=== PATIENT | male | born 1985 | race Caucasian/White ===

== ENCOUNTER 2016-04-13 15:21 | Emergency (ER) ==
--- NOTE | 2016-04-13 16:19 | PROVIDER DOCUMENTATION ---
HPI-EENT General - General Chief Complaint: Toothache Stated Complaint: ABSCESS TOOTH Time Seen by Provider: 04/13/16 15:27 Source: patient Allergies/Adverse Reactions: Patient Allergies Allergy/AdvReac Type Severity Reaction Status Date / Time doxycycline Allergy Severe SWELLING Verified 02/12/15 16:03 cat gut sutures Allergy Severe infection Uncoded 02/12/15 16:03 @ site - History of Present Illness-EENT General Nature of Presenting Problem: 30 yo male presents to the emergency room with a chief complaint of a toothache X 2 to 3 weeks. Gives Hx of dental problems. Reports taking Tylenol OTC w/o relief. Reports can not take motrin because of stomach ulcers. Reports an abscessed tooth X 2 days and reports is following up with [facility]. Denies fever, chills, swelling to face or any other c/o at present. EENT Location: reports: dental Quality of Pain: reports: aching Severity: reports: mild Onset/Duration: reports: 2 days ago Timing: reports: still present Prearrival Treatment: Initiated over the counter meds Associated Symptoms: reports: tooth pain. denies: facial pain/swelling Review of Systems - Adult - REVIEW OF SYSTEMS - ADULT Constitutional: denies: chills, fever Ears, Nose, Mouth & Throat: reports: mouth/dental pain Past History - Adult - PAST MEDICAL HISTORY-ADULT Review of Records: reports: Nursing Assessment Review, Medications Reviewed Major Childhood Illnesses: reports: other (cholecystectomy ) Gastrointestinal: reports: cholelithiasis (cholecystectomy age 10) Other Conditions: reports: MRSA - PRIOR SURGERIES/PROCEDURES Surgical/Procedure History: reports: cholecystectomy (age 10), other ( gynecomastia age 21, I&D surgical in May Dr. Cameron) - IMMUNIZATION STATUS Childhood Immunizations: UTD, See Nurse Assessment Flu Vaccine: See Nurse Assessment - SOCIAL HISTORY Smoking: cigarettes, less than 1 pack/day Provider spent 3-5 mins advising pt. on dangers of tobacco.: Discussed manners to quit use, and f/u contacts for add'l counseling. Physical Exam- EENT - Physical Exam EENT Initial Vital Signs Reviewed: Yes General Appearance: appears well, alert, no apparent distress Eye Exam: bilateral eye: normal inspection, PERRL Ear Exam: bilateral ear: auricle normal, canal normal Throat Exam: pharynx normal, dental tenderness, other (severe dental caries noted to teeth, fractured right lower 5th tooth) Respiratory: lungs clear, normal breath sounds Cardiovascular: normal peripheral pulses, regular rate, rhythm Extremity: normal range of motion, normal capillary refill Integumentary: normal color, normal turgor, warm/dry Progress - PLAN OF CARE/RESULTS Progress/Plan/Lab Results: Discussed care, diagnosis and need for follow-up, patient verbalized understanding Last Vital Signs Temp 97.2 F L 04/13/16 15:25 Pulse 103 H 04/13/16 15:25 Resp 18 04/13/16 15:25 BP 145/90 04/13/16 15:25 Pulse Ox 97 04/13/16 15:25 Allergies doxycycline Allergy (Severe, Verified 02/12/15 16:03) SWELLING cat gut sutures Allergy (Severe, Uncoded 02/12/15 16:03) infection @ site Vital Signs - 24 hr 04/13/16 15:25 Temperature 97.2 F L Pulse Rate 103 H Respiratory 18 Rate Blood Pressure 145/90 O2 Sat by Pulse 97 Oximetry Departure - Departure Time of Disposition Order: 16:11 DIAGNOSIS: Toothache, Dental caries Disposition: HOME 01 Certified Medical Emergency: Urgent Condition: Good Additional Instructions: ED Follow Up Instructions: You have been treated by a care provider in the Emergency Department. These instructions are being provided to you so you can have an understanding of how to care for yourself upon discharge. Upon discharge from the Emergency Department, you are responsible for making arrangements for follow-up care by a physician of your choice. Take all prescribed medications as directed. Return to the Emergency Department immediately for any new or worsening symptoms. You may call the Physician Referral phone number at [phone] to obtain a list of Physicians who are taking new patients. Prescriptions: Amoxicillin 875 mg PO BID #20 tablet Referrals: None,PCP [Primary Care Provider] - Attestation - Physician/ Mid-level Attestation Patient care was provided by Mid-level provider (TUBE MAN/PA):: Yes Mid-level provider:: Karime Cook Mid-level documentation review:: The Mid-level provider documentation, treatment plan and medical decision making was reviewed by the physician who agrees with all treatment and medical decision making by the P.
[2016-04-13 16:42] VITALS: BP 134/84
== END 2016-04-13 17:18 | disposition home or self-care (01) ==
LOC: P.ED 15:21
DX: K02.9 Dental caries, unspecified (principal); K08.89 Other specified disorders of teeth and supporting structures; S02.5XXA Fracture of tooth (traumatic), initial encounter for closed fracture; F17.210 Nicotine dependence, cigarettes, uncomplicated; Z71.6 Tobacco abuse counseling; Z86.14 Personal history of Methicillin resistant Staphylococcus aureus infection
CPT/HCPCS: 99282

== ENCOUNTER 2018-10-24 12:17 | Inpatient (IN) ==
--- NOTE | 2018-10-24 12:48 | PROVIDER DOCUMENTATION ---
HPI-Abdominal Pain/GI Problem - General Chief Complaint: Abdominal Pain Stated Complaint: ABD PAIN Time Seen by Provider: 10/24/18 12:30 Source: patient Allergies/Adverse Reactions: Patient Allergies Allergy/AdvReac Type Severity Reaction Status Date / Time doxycycline Allergy Severe ANAPHYLAXIS Verified 10/18/18 18:38 cat gut sutures Allergy Severe infection Uncoded 10/31/17 16:28 @ site Home Medications: Home Medication List Medication Instructions Recorded Confirmed Last Taken Type Clindamycin [Cleocin] 300 mg PO Q6HR #40 cap 07/11/18 Unknown Rx Mupirocin Ointment [Bactroban 22 gm .SEE ORDER TID #1 tube 07/11/18 Unknown Rx Ointment] Sulfamethoxazole/Trimethoprim 1 ea PO BID #14 tab 07/11/18 Unknown Rx [Bactrim Ds Tablet] Hydrocodone/Acetaminophen [Watrous 1 ea PO Q6H PRN PRN #16 tab 10/18/18 Unknown Rx 5-325 Tablet] Ondansetron [Zofran] 4 mg PO Q6H PRN PRN #20 tab 10/18/18 Unknown Rx - History of Present Illness-ABD Nature of Presenting Problems: 33yom present to ER with c/o abd pain x 3.5 weeks. Pt states he has not f/u with anyone. States he did not have number for the referral. Pt also c/o n/v reports average 3x a day. Denies fever. Reports some constipation, states last BM was last night but was 1 week prior to that. Abdominal Pain Onset Location: reports: generalized abdomen Pain Radiation: reports: no radiation Quality of Pain: reports: aching, throbbing Onset/Duration: reports: other (3.5 weeks) Associated Symptoms: reports: constipation, nausea, vomiting. denies: chest pain, diarrhea, fever/chills, genitourinary problems, shortness of breath, weakness Review of Systems - Adult - REVIEW OF SYSTEMS - ADULT Constitutional: reports: no symptoms reported. denies: chills, fever Eyes: reports: no symptoms reported Ears, Nose, Mouth & Throat: reports: no symptoms reported Cardiovascular: reports: no symptoms reported. denies: chest pain Respiratory: reports: no symptoms reported Gastrointestinal: reports: see HPI, abdominal pain, constipation, nausea, vomiting. denies: hematemesis, diarrhea Genitourinary: reports: no symptoms reported. denies: dysuria, frequency, flank pain, hematuria, urgency Musculoskeletal: reports: no symptoms reported Integumentary: reports: no symptoms reported Neurological: reports: no symptoms reported. denies: dizziness/vertigo, headache/migraines Psychiatric: reports: no symptoms reported Endocrine: reports: no symptoms reported Hematologic/Lymphatic: reports: no symptoms reported Allergic/Immunologic: reports: no symptoms reported All Other Systems: Reviewed and Negative Past History - Adult - PAST MEDICAL HISTORY-ADULT Review of Records: reports: Old Records Reviewed, Nursing Assessment Review, Med ications Reviewed, Social history reviewed & non-contributory. Major Childhood Illnesses: reports: denies history, other (cholecystectomy ) Cardiovascular: reports: denies history Respiratory: reports: denies history Gastrointestinal: reports: cholelithiasis (cholecystectomy age 10), GERD Obstetrical/Gynecological: reports: denies history Genitourinary: reports: denies history Musculoskeletal: reports: denies history Neurological: reports: denies history Psychiatric: reports: denies history Endocrine/Immune: reports: denies history Other Conditions: reports: MRSA - PRIOR SURGERIES/PROCEDURES Surgical/Procedure History: reports: cholecystectomy (age 10), other (gynecomastia age 21, I&D surgical in May Dr. Cameron) - IMMUNIZATION STATUS Childhood Immunizations: UTD, See Nurse Assessment Flu Vaccine: See Nurse Assessment - FAMILY HISTORY Family History: reviewed, not pertinent - SOCIAL HISTORY Substance Use: denies (alcohol) Physical Exam-General - PHYSICAL EXAM-ADULT Initial Vital Signs Reviewed: Yes - CONSTITUTIONAL General Appearance: alert, no apparent distress, mild distress, obese - EYES Eyes: pink conjunctivae - HEAD, EARS, NOSE, MOUTH & THROAT HENMT: moist mucous membranes, normal ENT inspection - NECK Neck: full range of motion, supple, normal inspection - RESPIRATORY Respiratory: lungs clear, normal breath sounds, no respiratory distress, no accessory muscle use - CARDIOVASCULAR Cardiovascular: tachycardia - GASTROINTESTINAL (ABDOMEN) Abdominal Exam: normal bowel sounds, no organomegaly, no pulsatile mass, tenderness (right sided and suprapubic regions). negative: distended, guarding, rigid, rebound - LYMPHATIC Lymphatic: no adenopathy - MUSCULOSKELETAL Back Exam: normal inspection, no CVA tenderness, no vertebral tenderness Extremity: normal range of motion, normal gait, normal inspection - SKIN Integumentary: normal color, warm/dry. negative: rash - NEUROLOGIC Neurologic: grossly normal, no motor/sensory deficits - PSYCHIATRIC Psych/Mental Status: normal mood/affect, normal thought content, normal thought process, oriented x 3 Progress - PLAN OF CARE/RESULTS Progress/Plan/Lab Results: Vital Signs - 8 hr 10/24/18 12:22 Temperature 97.8 F Pulse Rate 122 H Respiratory Rate 17 Blood Pressure 140/91 O2 Sat by Pulse Oximetry 97 Orders Category Date Time Status CBC WITH DIFF [HEME] Stat Lab 10/24/18 12:39 Uncollected COMPREHENSIVE METABOLIC PANEL [CHEM] Stat Lab 10/24/18 12:39 Uncollected LIPASE [CHEM] Stat Lab 10/24/18 12:39 Uncollected UA [URINALYSIS W/POSS RFLX CULT] [URINALYSIS] Stat Lab 10/24/18 12:39 Uncollected Result Diagrams: 10/24/18 12:40 10/24/18 12:40 - REASSESSMENT Reassessment #1 Time Reassessed: 13:38 (discussed pt with Dr Olivia, states to treat pt with pain m edication and have f/u outpatient) Reassessment #2 Time Reassessed: 13:44 (reviewed results with pt. Pt states he is still having pain. Pt states he does not have insurance and does not have anyone to follow up with due to this. Requests admission. Will call hospitalist to see if pt meets criteria or are willing to admit.) Reassessment #3 Time Reassessed: 14:13 (informed pt that hospitalist will come see him) - CONSULTS/PCP/HOSPITALIST Notification #1 *Consult/PCP/Hospitalist*: Ana Maria hospitalist RESEARCH DEVELOPMENT DIRECTOR Time Discussed: 14:14 Consult Disposition: Admit Departure - Departure Date of Disposition Decision: 10/24/18 Time of Disposition Decision: 14:14 DIAGNOSIS: Omental mass Abdominal pain Qualifiers: Abdominal location: unspecified location Qualified Code(s): R10.9 - Unspecified abdominal pain Nausea & vomiting Qualifiers: Vomiting type: unspecified Vomiting Intractability: unspecified Qualified Code(s): R11.2 - Nausea with vomiting, unspecified Disposition: ADMITTED INPATIENT 09 Certified Medical Emergency: Emergent Condition: Good Referrals and Follow-Ups: None,PCP [Primary Care Provider] - - Critical Care Note This patient required my direct & personal management of CC.: No Attestation - Physician/ TRAN Attestation Patient care was provided by Advanced Practice Provider:: Yes Advanced Practice Provider:: Darshan Rubalcava Advanced Practice Provider documentation review:: The Mid-level provider documentation, treatment plan and medical decision making was reviewed by the physician who agrees with all treatment and medical decision making by the MLP. The physician spent face to face time with patient:: No Advanced Practice Provider documentation review:: Supervising physician onsite and consulted in the evaluation and care of this patient. The physician did not have a face to face encounter with the patient.
[2018-10-24 12:55] LABS: URINE SOURCE CLEAN CATCH
[2018-10-24 13:01] LABS: BASO# 0.02 X1000 (0.0-0.2); BASO% 0.2 % (0.0-0.8); EOS% 0.9 % (0.0-10.0); HEMATOCRIT 41.8 % (42.0-52.0); HEMOGLOBIN 14.1 g/dL (14.0-18.0); IMM GRAN# 0.02 X1000 (0.0-0.04); IMM GRAN% 0.2 % (0.0-0.5); LYMPH# 1.69 X1000 (1.2-3.4); LYMPH% 15.1 % (20.5-51.1); MCH 29.9 PG (27-31); MCHC 33.7 g/dL (33-37); MCV 88.7 FL (81-99); MONO# 1.57 X1000 (0.11-0.59); MPV 9.8 FL (7.4-10.4); NEUT% 69.6 % (42.2-75.2); PLT 391 X1000 (130-400); RBC 4.71 XMIL (4.7-6.1); RDW 12.9 % (11.5-14.5)
[2018-10-24 13:02] LABS: BILIRUBIN URINE NEGATIVE (NEGATIVE); BLOOD URINE NEGATIVE (NEGATIVE); COLOR YELLOW; GLUCOSE URINE NEGATIVE (NEGATIVE); KETONE URINE TRACE mg/dL (NEGATIVE); LEUKOCYTES URINE NEGATIVE (NEGATIVE); NITRITE URINE NEGATIVE (NEGATIVE); PROTEIN URINE TRACE mg/dL (NEGATIVE); SP GRAVITY URINE 1.023; TURBIDITY URINE CLEAR (CLEAR); UROBILINOGEN URINE 2 mg/dL (NORMAL)
[2018-10-24 13:03] LABS: UR EPITHELIAL CELLS <10 /HPF (<10); URINE BACTERIA NEGATIVE /HPF; URINE RBC <10 /HPF (<10); URINE WBC <10 /HPF (<10)
[2018-10-24 13:38] LABS: AGAP 11; ALB/GLOB RATIO 1.3; ALBUMIN 3.9 g/dL (3.5-5.0); ALKALINE PHOSPHATASE 105 U/L (32-122); BUN 5 mg/dL (8-22); CALCIUM 8.8 mg/dL (8.8-10.2); CHLORIDE 100 mmol/L (98-107); COSMO 273; CREATININE 0.7 mg/dL (0.7-1.2); ESTIMATED GFR > 60; GLUCOSE 91 mg/dL (70-104); GOT 24 U/L (10-34); GPT 33 U/L (10-44); LIPASE 17 U/L (13-60); POTASSIUM 4.1 mmol/L (3.5-5.1); SODIUM 138 mmol/L (136-145); TCO2 27 mmol/L (25-35); TOTAL BILIRUBIN 0.31 mg/dL (0.20-1.00); TOTAL PROTEIN 6.9 g/dL (6.3-8.3)
[2018-10-24] MEDS ORDERED: ZOFRAN IV ONE (13:45)
[2018-10-24] MEDS ORDERED: MORPHINE IV ONE (13:45)
[2018-10-24] MEDS ORDERED: TYLENOL PO PRN (15:09)
[2018-10-24] MEDS: NS 1,000 ML IV SCH (16:19)
--- NOTE | 2018-10-24 17:09 | HISTORY AND PHYSICAL ---
PRIMARY CARE PROVIDER: None. CHIEF COMPLAINT: Abdominal pain, nausea, and vomiting. HISTORY OF PRESENT ILLNESS: Mr. Huitron is a 33-year-old gentleman who carries a past medical history of skin abscesses, GERD, kidney stones, and IV drug use about 5 years ago. He reports abdominal pain, nausea, and vomiting for the last 3 to 4 weeks. He was initially seen in the ER on 10/18. He underwent an abdomen and pelvis CT that showed severe omental nodularity, trace ascites, and highly concerning for peritoneal carcinomatosis of unclear source. He was discharged that day and was supposed to follow up with, I believe, GI and General Surgery. However, secondary to having no insurance, he did not get follow up. He has had continued abdominal pain and nausea and vomiting and reported constipation. His last BM was yesterday. No overt weight loss. No night sweats. No chest pain, shortness of breath, syncopal episodes. PAST MEDICAL HISTORY: 1. Past IV drug user. The last time he used was 5 years ago. Multiple skin abscesses, probably secondary to IV drug use. 2. Gastroesophageal reflux disease. 3. Kidney stones. PAST SURGICAL HISTORY: Cholecystectomy and gynecomastia surgery. FAMILY HISTORY: Father at the age of 41 from alcoholism secondary to aspiration. Grandfather with multiple heart issues. Mother with diabetes. SOCIAL HISTORY: He lives with girlfriend. They just found out they were 3 to 4 months . He continues to smoke 4 cigarettes per day and has done so for 14 or 15 years. Currently denying any alcohol or illicit drug use. ALLERGIES: Doxycycline and catgut sutures. HOME MEDICATIONS: None. REVIEW OF SYSTEMS: Twelve-point review of systems completely negative except for those mentioned in HPI. PHYSICAL EXAMINATION: VITAL SIGNS: Temperature is 98.8 degrees, heart rate 84, respirations 18, blood pressure 129/82, O2 is 98% on room air. GENERAL: Mr. Huitron is a pleasant 33-year-old, obese, male, sitting up in the bed, in no acute distress. HEENT: Atraumatic, normocephalic. PERRL. NECK: Supple. Trachea midline. CARDIOVASCULAR: S1, S2 appreciated. No murmurs, gallops, rubs noted. RESPIRATORY: Lung sounds clear bilaterally. GASTROINTESTINAL: Soft. Tender to the right upper quadrant. Positive bowel sounds in 4 quadrants. EXTREMITIES: Negative for edema. NEUROLOGIC: No focal deficits noted. DIAGNOSTIC DATA: Abdomen and pelvis CT from the shows severe omental nodularity, trace ascites, highly concerning for peritoneal carcinomatosis of unclear source. LABORATORY DATA: White count 11, hemoglobin and hematocrit 14 and 41, platelet count is 391,000. Chemistry: Sodium 138, potassium 4.1, BUN 5, creatinine 0.7, blood glucose is 91. AST 24, ALT 33, alkaline phosphatase 105. Urinalysis is clear. ASSESSMENT AND PLAN: 1. Intractable abdominal pain with nausea and vomiting. We will continue with IV morphine and antiemetics. 2. Likely peritoneal carcinomatosis with omental nodularity on CT with unclear primary. We will consult GI as well as Oncology. Await their recommendations. will likely need colonoscopy vs IR biopsy 3. History of intravenous drug use 5 years ago. We are doing a rapid HIV to rule out any atypical type infections. 4. Mild dehydration. We will continue with IV fluids. 5. Further recommendations to follow physician evaluation, laboratory and diagnostic data. Dictated by JO Baker for Aurelio Mendes MD cc: MD Elise Cortes MD Agree with the above. the following is my own face to face assessment. patient with abdominal pain nausea and vomiting. abdomen pretty benign on exam with minimal diffuse tenderness but no rebound or guarding. CT highly concerning for late stage malignancy with unknown primary. MTDD
[2018-10-24] MEDS: ZOFRAN IV PRN (18:08)
[2018-10-24] MEDS: MORPHINE IV PRN ×2 (18:08→22:07)
[2018-10-25] MEDS: MORPHINE IV PRN ×7 (02:08→22:29)
[2018-10-25] MEDS: ZOFRAN IV PRN ×5 (02:08→22:29)
[2018-10-25] MEDS: NS 1,000 ML IV SCH ×3 (05:07→19:38)
[2018-10-25 07:27] LABS: BASO# 0.03 X1000 (0.0-0.2); BASO% 0.3 % (0.0-0.8); EOS# 0.13 X1000 (0.0-0.7); EOS% 1.3 % (0.0-10.0); HEMOGLOBIN 14.1 g/dL (14.0-18.0); IMM GRAN# 0.02 X1000 (0.0-0.04); IMM GRAN% 0.2 % (0.0-0.5); LYMPH# 1.26 X1000 (1.2-3.4); LYMPH% 12.2 % (20.5-51.1); MCH 30.1 PG (27-31); MCHC 33.6 g/dL (33-37); MCV 89.7 FL (81-99); MONO# 1.56 X1000 (0.11-0.59); MPV 10.1 FL (7.4-10.4); NEUT# 7.37 X1000 (1.4-6.5); PLT 361 X1000 (130-400); RBC 4.68 XMIL (4.7-6.1); WBC 10.37 X1000 (4.8-10.8)
[2018-10-25 07:46] LABS: AGAP 13; ALB/GLOB RATIO 1.1; ALBUMIN 3.6 g/dL (3.5-5.0); ALKALINE PHOSPHATASE 205 U/L (32-122); BUN 4 mg/dL (8-22); CHLORIDE 101 mmol/L (98-107); COSMO 272; CREATININE 0.6 mg/dL (0.7-1.2); ESTIMATED GFR > 60; GLUCOSE 95 mg/dL (70-104); GOT 105 U/L (10-34); GPT 98 U/L (10-44); POTASSIUM 3.9 mmol/L (3.5-5.1); SODIUM 138 mmol/L (136-145); TCO2 24 mmol/L (25-35); TOTAL BILIRUBIN 0.49 mg/dL (0.20-1.00)
--- NOTE | 2018-10-25 08:59 | Diag Imaging Result Doc PS360 ---
KUB ABDOMEN - 10/25/2018 INDICATION: ?ileus, carcinomatosis COMPARISON: 10/31/2017 FINDINGS: There is a nonobstructive bowel gas pattern. No free air or abdominal calcifications. IMPRESSION: No acute disease. Electronically signed by Coy Nguyen 10/25/2018 8:56 AM
[2018-10-25 09:24] LABS: HIV ANTIBODY SCREEN SEE COMMENTS
--- NOTE | 2018-10-25 12:48 | Diag Imaging Result Doc PS360 ---
EXAM: CT THORAX W/CONTRAST 10/25/2018 HISTORY: Peritoneal carcinomatosis TECHNIQUE: This exam was performed using automated exposure control, adjustment of mA or kV according to patient size, and/or use of iterative reconstruction technique. COMMENT: There are no previous thoracic studies. There is a 16 mm prevascular node. Otherwise there is no evidence of significant adenopathy. There is a left pleural effusion. There is peritoneal carcinomatosis and ascites which has been previously described on the abdominal study of 10/18/2018. There is a linear opacity in the right lower lobe which was not present at the time of the abdominal study of 10/18/2018 and is presumably due to subsegmental atelectasis. There is minimal compressive atelectasis in the left lower lobe. The pleural effusion is larger than it was at the time of the previous abdominal study. The regional skeleton appears to be intact. IMPRESSION: Worsened left pleural effusion. Subsegmental atelectasis in the right lower lobe. Prevascular adenopathy. Electronically signed by Ady Mayfield 10/25/2018 12:46 PM
--- NOTE | 2018-10-25 15:59 | PROGRESS NOTE ---
DATE: 10/25/2018 INTERVAL HISTORY: Patient reports pain relief for an hour or so after a dose of morphine, but then the pain returns. Still with some nausea but no vomiting. Reports that Zofran is helping with the nausea significantly. No other new complaints. No acute events overnight. REVIEW OF SYSTEMS: Twelve point review of systems negative except as per interval history. LABS: WBC 10.3, hemoglobin 14.1, hematocrit 42.0, platelets 361,000. Metabolic panel unremarkable aside from bicarbonate 24, BUN 4, creatinine 0.6, AST 105, ALT 98, alkaline phosphatase 205. CT abdomen and pelvis from 10/18, severe omental nodularity, trace ascites, concerning for peritoneal carcinomatosis. CT chest 10/25 mild left pleural effusions, subsegmental atelectasis in the right lower lobe, pre-vascular adenopathy, no obvious mass. Abdominal x-ray no acute disease. No obstruction. VITALS: T-max 99.0, pulse 87, respirations 20, blood pressure 131/78, O2 saturation 96% on room air. PHYSICAL EXAMINATION: General: No acute distress. Vitals: As above. HEENT: Normocephalic, atraumatic. Moist mucous membranes. No cervical adenopathy. Cardiovascular: Regular rate and rhythm. No murmurs noted. Pulmonary: Clear to auscultation bilaterally. No wheezing, rales, or rhonchi. Abdomen: Minimally distended, nontender. Bowel sounds decreased but present. Extremities: Peripheral pulses intact. No clubbing or cyanosis. Neurologic: Cranial nerves grossly intact. No focal deficits identified. Psychiatric: Normal mood and affect. Awake, alert, oriented x3. Skin: No new rashes or lesions noted. ASSESSMENT AND PLAN: 1. Omental nodules, likely malignant ascites, likely peritoneal carcinomatosis. The patient with CT findings strongly concerning for metastatic cancer with unknown primary. Given symptoms of abdominal fullness, nausea, and initial constipation followed by watery bowel movements, concern is for colon cancer, but given the patient's age, could be a number of things. HIV negative so unlikely to be infectious. GI and oncology consulted. Recommendations pending. We will see if they prefer to start with colonoscopy to look for colon cancer or to ask IR to attempt to biopsy his omentum. Further course depending on testing results. 2. Nausea. Still intermittently nauseous but no further vomiting and reports nausea is adequately controlled with Zofran. 3. Abdominal pain. The patient reports suboptimal control. We will increase morphine to 4 q. 3 and see how he does. 4. Likely mild dehydration improved with fluids overnight. 5. Transaminitis. Patient with mildly elevated AST and ALT and alkaline phosphatase but normal bilirubin. Uncertain of significance. No liver pathology on the CT. We will repeat LFTs in the morning and if they are worsening, we will consider liver ultrasound. [facility]
--- NOTE | 2018-10-25 18:52 | HEMO/ONC CONSULTATION ---
DATE: 10/25/2018 CONSULTATION REQUESTED BY: Hospitalist service consultation. REASON FOR CONSULTATION: Carcinomatosis HISTORY OF PRESENT ILLNESS: Mr. Huitron is a 33-year-old, male who presented to the emergency department yesterday complaining of nausea and vomiting and some abdominal pain. The patient actually presented to the ER also on October 18 with the same complaints. At that time, he had a CT of the abdomen and pelvis completed which showed severe omental nodularity. Trace ascites. Highly concerning for peritoneal carcinomatosis . The source is unclear. He was asked to follow up as an outpatient but is not able to do so due to his lack of insurance. He has now come back and they have now admitted him for further evaluation and treatment. The patient reports that he has been having some constipation and nausea and vomiting but otherwise has no other acute complaints. He denies any weight loss. He has previously had a scrotal ultrasound. He denies any scrotal tenderness or complaints. PAST MEDICAL HISTORY: 1. Previous IV drug user. 2. Gastroesophageal reflux. 3. Kidney stones. 4. Obesity. PAST SURGICAL HISTORY: 1. Cholecystectomy. 2. Gynecomastia surgery. FAMILY HISTORY: Father at the age of 41 due to alcoholism. Grandfather with multiple heart issues. His mother has diabetes and his grandmother had colon cancer age 69. SOCIAL HISTORY: Patient currently lives with his girlfriend who is currently 3 to 4 months . He continues to smoke about 4 cigarettes per day. He denies any alcohol or illicit drug use. REVIEW OF SYSTEMS: Twelve point review of systems has been completed, negative except for what is expressed in the HPI. PHYSICAL EXAMINATION: Vital Signs: Temperature 97.8 degrees, heart rate 86, respirations 20, blood pressure 126/88, O2 saturation 98% on room air. General: This is an obese male lying in hospital bed. He is in no acute distress. No one is at bedside with him at the time of the interview. HEENT: Head normocephalic, atraumatic. Eyes: Pupils equal, round, reactive. Ears, nose, throat, neck, mouth mucosa appears to be normal. Gross auditory acuity is intact. Heart: Cardiovascular S1, S2 heard. No murmurs, gallops, rubs appreciated. Respiratory: Chest is clear. There is no rhonchi, rales or wheezing noted. Gastrointestinal: Abdomen is obese. Soft. No tenderness. Normoactive bowel sounds noted. Musculoskeletal: No bony abnormalities. Extremities: Trace edema. Neurologic: Patient is alert and oriented with no obvious focal motor deficits noted. LABS AND STUDIES: White blood cells today are 10.37, hemoglobin 14.1, platelet count 361,000. Sodium 138, potassium 3.9, chloride 101, CO2 24, BUN 4, creatinine 0.6, glucose 95, total bilirubin is 0.49, AST and ALT are 105 and 98 respectively with an alkaline phosphatase of 205. These are acute elevations overnight. ASSESSMENT AND PLAN: 1. Peritoneal carcinomatosis. This is concerning for malignancy. We agree with the workup from the GI initially. He has been having nausea and vomiting, and will likely need to be scoped. We will follow up on those reports. We are going to go ahead and check a CEA and CA-19-9 in the morning. We will also go ahead and do a CT of the chest to complete staging. We will ultimately currently need a tissue diagnosis before we can talk about any source of treatment. 2. Nausea and vomiting. Seems to be well managed currently. Continue IV Zofran as needed. 3. Abdominal pain. Again seems to be well managed with IV morphine. Management per the primary team. We are going to be signing off just for the weekend. We will resume follow up on Sunday and will make further recommendations throughout the patient's hospital course. Dictated by MICHAEL Castrejon for Elise Barboza MD cc: Elise Barboza MD [facility]
[2018-10-26] MEDS: MORPHINE IV PRN ×7 (04:00→23:27)
[2018-10-26] MEDS: ZOFRAN IV PRN ×5 (04:00→23:27)
[2018-10-26] MEDS: NS 1,000 ML IV SCH ×2 (08:50→23:30)
--- NOTE | 2018-10-26 10:33 | GASTROENTEROLOGY CONSULTATION ---
DATE: 10/25/2018 REASON FOR CONSULTATION: Peritoneal carcinomatosis. HISTORY OF PRESENT ILLNESS: Mr. Edmar Huitron is a 33-year-old gentleman with history of morbid obesity who presented with 4 weeks of worsening stabbing abdominal pain. He describes his pain as being progressive over the last several weeks, worse on the right greater than the left. He has associated bilious nausea/vomiting, and alternating diarrhea and constipation over the last 2 weeks. He denies any hematochezia, melena, hematemesis, weight loss, chest pain, shortness of breath, fever, or sweats. He does have some decreased appetite and chills. He denies history of similar symptoms in the past. REVIEW OF SYSTEMS: As per HPI, otherwise 12 point review of systems is negative. PAST MEDICAL HISTORY: History of morbid obesity PAST SURGICAL HISTORY: Cholecystectomy at 10 years old, history of breast reduction secondary to gynecomastia. FAMILY HISTORY: Maternal grandmother had a colon cancer. SOCIAL HISTORY: He smokes about 4 cigarettes a day down from previous 1 pack per day. 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 No alcohol use. MEDICATIONS: None. ALLERGIES: Doxycycline. PHYSICAL EXAMINATION: Vital Signs: Temperature 98.4, heart rate 82, respiratory rate 18, blood pressure 117/72, O2 saturation 96% on room air. Generally: The patient is awake, alert, oriented, no acute distress. HEENT: Sclerae anicteric. Moist mucous membranes. Poor dentition. Extraocular motor intact. Neck: Supple. No JVD or lymphadenopathy. Cardiac: Regular rate and rhythm. No murmurs, rubs, or gallops. Lungs: Clear to auscultation bilaterally. No wheezing. Abdomen: Obese, nondistended. Tenderness to palpation on the right abdomen greater than the left. No rebound or guarding. Bowel sounds are present. Extremities: No clubbing, cyanosis, or edema. Neurologic: Nonfocal. LABS: White count of 10.3, hemoglobin 14.4, platelets of 361. Sodium 138, potassium 3.8, chloride 101, bicarbonate 24. BUN of 4, creatinine 0.6, glucose of 95, total bilirubin of 0.49. AST of 105, ALT of 98, alkaline phosphatase of 205, total protein of 7.0, albumin 3.6. Urinalysis shows trace protein, trace ketones. HIV is negative. IMAGING: Abdominal x-ray on 10/25 shows no acute disease. CT of the chest shows left pleural effusion. Subsegmental atelectasis in the right lower lobe, Prevascular adenopathy. CT on 10/18 showed severe omental nodularity with trace ascites, highly concerning for peritoneal carcinomatosis, unclear source. ASSESSMENT AND PLAN: Mr. Edmar Huitron is a 33-year-old gentleman with history of morbid obesity, who presents with 4 weeks of worsening abdominal pain with associated nausea and vomiting, found to have severe omental peritoneal carcinomatosis concerning for metastatic disease of unknown primary. GI was consulted for further evaluation to determine the etiology of CT findings. He has some nausea, vomiting with decreased appetite, alternating diarrhea and constipation; however, no weight loss, rectal bleeding and labs show normal hemoglobin. CT does not show any evidence of any colonic, SB or gastric wall thickening from 10/18. The patient's abdominal exam reveals some right-sided abdominal tenderness greater than the left. No rebound or guarding. We have ordered carcinoembryonic antigen. Would prefer that we do a CT-guided biopsy of his omental lesions as this would at least give us a clue of the origin of his disease and also stage his malignancy. If it shows gastrointestinal origin, then we can further evaluate with endoscopic evaluation. Oncology is following. Plan discussed with primary team. Thank you for this consultation. We will follow with you. Please call with any questions or concerns. [facility]
--- NOTE | 2018-10-26 16:38 | PROGRESS NOTE ---
DATE: 10/26/2018 INTERVAL HISTORY: The patient's pain better controlled with slightly increased dose of morphine. Nausea also well controlled. Discussed the case with GI. They favor biopsy by IR. No acute events overnight. No new complaints. REVIEW OF SYSTEMS: Twelve-point review of systems negative except as per interval history. LABORATORIES: CEA 2. PHYSICAL EXAMINATION: vital signs: T-max 98.6 degrees, pulse 84, respirations 18, blood pressure 146/96, and O2 saturation 98% on room air. General: No acute distress. Vitals: As above. HEENT: Normocephalic, atraumatic. Moist mucous membranes. No cervical adenopathy. Cardiovascular: Regular rate and rhythm. No murmurs noted. Pulmonary: Clear to auscultation bilaterally. No wheezing, rales, or rhonchi. Abdomen: Minimal distention unchanged, nontender. Bowel sounds decreased, but present. Extremities: Peripheral pulses intact. No clubbing or cyanosis. Neurologic: Cranial nerves grossly intact. No focal deficits identified. Psychiatric: Normal mood and affect. Awake, alert, oriented x3. Skin: No new rashes or lesions identified. ASSESSMENT AND PLAN: 1. Extensive omental nodules, likely malignant ascites, likely peritoneal carcinomatosis. The patient with CT findings strongly concerning for metastatic cancer with unknown primary. Initially favored initial workup with colonoscopy, but discussed with GI and they strongly favor attempted CT-guided IR biopsy. Attempting to arrange that. CEA within normal limits. CT chest with no obvious thoracic metastases or primary. HIV negative so unlikely to be infectious. Oncology consulted as well. Further course depending on results. Pain control improved. Nausea control good. We will continue those. Since he is not going for colonoscopy, we will go ahead and start him on a diet. 2. Nausea. Still intermittently nauseous, but well controlled with Zofran. 3. Abdominal pain. Control suboptimal initially, but now improved with slightly increased dose of morphine. 4. Likely mild dehydration. Improved with fluids overnight. We will encourage p.o. intake. 5. Transaminitis. Normal on admission. Repeat slightly elevated although with normal bilirubin. Recheck pending. If it continues to trend up, we will likely get liver ultrasound, but there is no obvious liver pathology on initial CT.
--- NOTE | 2018-10-26 23:52 | PROVIDER PROGRESS NOTE ---
Progress Note S: No acute overnight events. Afebrile. Patient tolerating clears. Nausea controlled with zofran. Abdominal pain lessen. O: Last Vital Signs Temp 98.4 F 10/26/18 23:35 Pulse 97 H 10/26/18 23:35 Resp 18 10/26/18 23:35 BP 128/80 10/26/18 23:35 Pulse Ox 99 10/26/18 23:35 Height 6 ft Weight 303 lb 5 oz GEN: awake, alert, NAD HEENT: anicteric, poor dentition NECK: supple, no JVD PULM: CTAB, no wheezing ABD: soft mild TTP right > left abdomen, no rebound or guarding EXT: no cce NEURO: nonfocal LABS: CEA 2.0 A/P: Mr. Edmar Huitron is a 33-year-old gentleman with history of morbid obesity, who presents with 4 weeks of worsening abdominal pain with associated nausea and vomiting, alternating diarrhea/constipation found to have severe omental peritoneal carcinomatosis concerning for metastatic disease of unknown primary. Oncology following; apprec recs.GI was consulted for further evaluation to determine the etiology of CT findings. CT-guided biopsy of omental lesions ordered. Nausea controlled. No diarrhea currently. Ok to advance diet to full liquids today. # Peritoneal carcinomatosis # Abdominal pain # Nausea/vomiting # Morbid obesity # Abnormal LFTs: probable fatty liver; will recheck LFTs/INR tomorrow Will follow with you. Please call with questions.
[2018-10-27] MEDS: MORPHINE IV PRN ×7 (02:31→21:32)
[2018-10-27] MEDS: ZOFRAN IV PRN ×4 (05:53→18:21)
[2018-10-27 07:16] LABS: BASO# 0.02 X1000 (0.0-0.2); BASO% 0.2 % (0.0-0.8); EOS# 0.12 X1000 (0.0-0.7); EOS% 1.1 % (0.0-10.0); HEMATOCRIT 40.7 % (42.0-52.0); HEMOGLOBIN 13.6 g/dL (14.0-18.0); IMM GRAN# 0.02 X1000 (0.0-0.04); IMM GRAN% 0.2 % (0.0-0.5); LYMPH# 1.07 X1000 (1.2-3.4); LYMPH% 10.2 % (20.5-51.1); MCH 29.9 PG (27-31); MCHC 33.4 g/dL (33-37); MCV 89.5 FL (81-99); MONO# 1.82 X1000 (0.11-0.59); MONO% 17.3 % (1.7-9.3); MPV 9.7 FL (7.4-10.4); NEUT# 7.47 X1000 (1.4-6.5); PLT 331 X1000 (130-400); RBC 4.55 XMIL (4.7-6.1); RDW 12.9 % (11.5-14.5); WBC 10.52 X1000 (4.8-10.8)
[2018-10-27 07:46] LABS: ALB/GLOB RATIO 0.9; ALBUMIN 3.3 g/dL (3.5-5.0); DIRECT BILIRUBIN 0.5 mg/dL (0.00-0.20); TOTAL BILIRUBIN 1.05 mg/dL (0.20-1.00); TOTAL PROTEIN 6.8 g/dL (6.3-8.3)
[2018-10-27 07:59] LABS: AGAP 17; BUN 5 mg/dL (8-22); CALCIUM 8.5 mg/dL (8.8-10.2); CHLORIDE 99 mmol/L (98-107); COSMO 270; CREATININE 0.6 mg/dL (0.7-1.2); ESTIMATED GFR > 60; GLUCOSE 81 mg/dL (70-104); POTASSIUM 4.2 mmol/L (3.5-5.1); SODIUM 137 mmol/L (136-145); TCO2 21 mmol/L (25-35)
[2018-10-27] MEDS: NS 1,000 ML IV SCH (09:30)
--- NOTE | 2018-10-27 11:54 | Diag Imaging Result Doc PS360 ---
EXAM: US ABDOMEN-COMPLETE 10/27/2018 HISTORY: abnormal LFTs TECHNIQUE: Abdominal ultrasound: COMMENT: There is ascites. The liver is slightly hyperechoic. The visualized portions of the pancreas are within normal limits. The visualized portions of the aorta and inferior vena cava are within normal limits. There is antegrade flow in the portal vein. There is no evidence of biliary dilatation the common bile duct measuring less than 5 mm. The kidneys are without evidence of hydronephrosis. There is a 2.5 cm cyst in the upper mid left kidney. The spleen is not enlarged. IMPRESSION: Ascites. Hepatic steatosis versus cirrhosis. Electronically signed by Ady Mayfield 10/27/2018 11:52 AM
--- NOTE | 2018-10-27 16:09 | PROGRESS NOTE ---
DATE: 10/27/2018 INTERVAL HISTORY: Patient's nausea essentially resolved. Abdominal pain is still present but well controlled. No acute events overnight. No new complaints. Remains afebrile. REVIEW OF SYSTEMS: Twelve point review of systems negative except as per interval history. LABS: WBC 10.5, hemoglobin 13.6, hematocrit 40.7, platelets 331,000. INR 1. Sodium 137, potassium 4.2. BUN 5, creatinine 0.6. Total bilirubin 1.05, AST 143, ALT 162, alk phos 237. IMAGING: Abdominal ultrasound showing ascites and fatty liver versus cirrhosis. VITALS: T-max 98.6 degrees, pulse 93, respirations 21, blood pressure 121/86. O2 saturation 98% on room. PHYSICAL EXAMINATION: General: No acute distress. Vitals: As above. HEENT: Normocephalic, atraumatic. Moist mucous membranes. No cervical adenopathy. Cardiovascular: Regular rate and rhythm. No murmurs noted. Pulmonary: Clear to auscultation bilaterally. No wheezing, rales, or rhonchi. Abdomen: Minimal distention, stable, nontender. Bowel sounds present. Extremities: Peripheral pulses intact. No clubbing or cyanosis. Neurologic: Cranial nerves grossly intact. No focal deficit seen. Psychiatric: Normal mood and affect. Awake, alert, and oriented x3. Skin: No new rashes or lesions, no jaundice. ASSESSMENT AND PLAN: 1. Extensive omental nodules. They are possible malignant ascites, likely peritoneal carcinomatosis. The patient with CT findings strongly concerning for metastatic cancer with occult primary. Planning on CT-guided IR biopsy hopefully in the morning. CEA within normal limits. CT chest with no obvious the thoracic metastasis or primary lesion. HIV negative. Oncology on board and following. 2. Transaminitis. Essentially normal on admission. Trending up over the last couple of days. Ultrasound obtained showing fatty liver versus cirrhosis. Not entirely certain what to make of that. Both he and his family deny alcohol use. No biliary abnormalities. We will go ahead and check hepatitis panel as he does have a remote history of IV drug use. 3. Nausea. Essentially resolved. Zofran available if needed. 4. Abdominal pain, well controlled on current morphine. After biopsy tomorrow, will transition him to p.o. pain medicine. 5. Mild dehydration, resolved with fluids. Encouraging p.o. intake.
--- NOTE | 2018-10-27 21:51 | PROVIDER PROGRESS NOTE ---
Progress Note S: No acute overnight events. Afebrile. No N/V. He is tolerating PO. +BMs. His abdominal pain is unchanged. No rectal bleeding. O: Last Vital Signs Temp 98.6 F 10/27/18 20:00 Pulse 87 10/27/18 20:00 Resp 18 10/27/18 20:00 BP 138/89 10/27/18 20:00 Pulse Ox 98 10/27/18 20:00 Height 6 ft Weight 303 lb 5 oz GEN: awake, alert, NAD HEENT: anicteric, poor dentition NECK: supple, no JVD PULM: CTAB, no wheezing ABD: soft mild TTP right > left abdomen, no rebound or guarding EXT: no cce NEURO: nonfocal 10/27/18 10/27/18 10/27/18 07:06 07:06 07:06 WBC 10.52 Hgb 13.6 L Plt Count 331 INR 1.0 Sodium 137 Potassium 4.2 Chloride 99 Carbon Dioxide 21 L BUN 5 L Creatinine 0.6 L Total Bilirubin 1.05 H Direct Bilirubin 0.50 H AST 143 H ALT 162 H Alkaline Phosphatase 237 H Total Protein 6.8 Albumin 3.3 L EXAM: US ABDOMEN-COMPLETE 10/27/2018 HISTORY: abnormal LFTs TECHNIQUE: Abdominal ultrasound: COMMENT: There is ascites. The liver is slightly hyperechoic. The visualized portions of the pancreas are within normal limits. The visualized portions of the aorta and inferior vena cava are within normal limits. There is antegrade flow in the portal vein. There is no evidence of biliary dilatation the common bile duct measuring less than 5 mm. The kidneys are without evidence of hydronephrosis. There is a 2.5 cm cyst in the upper mid left kidney. The spleen is not enlarged. IMPRESSION: Ascites. Hepatic steatosis versus cirrhosis. A/P: Mr. Edmar Huitron is a 33-year-old gentleman with history of morbid obesity, who presents with 4 weeks of worsening abdominal pain with associated nausea and vomiting, alternating diarrhea/constipation found to have severe omental peritoneal carcinomatosis concerning for metastatic disease of unknown primary. Oncology following; apprec recs.GI was consulted for further evaluation to determine the etiology of CT findings. CT-guided biopsy of omental lesions ordered. Nausea controlled. No diarrhea currently. He is tolerating full liquids. # Peritoneal carcinomatosis # Abdominal pain: controlled # Nausea/vomiting: resolved # Morbid obesity # Abnormal LFTs: probable fatty liver; US shows hepatic steatosis and ascites; unlikely cirrhosis given normal plts, INR Will follow with you. Please call with questions.
[2018-10-28] MEDS: MORPHINE IV PRN ×6 (00:37→17:49)
[2018-10-28] MEDS: ZOFRAN IV PRN ×6 (00:37→23:08)
[2018-10-28] MEDS: NS 1,000 ML IV SCH ×2 (00:38→15:40)
[2018-10-28 07:21] LABS: BASO# 0.02 X1000 (0.0-0.2); BASO% 0.2 % (0.0-0.8); EOS# 0.12 X1000 (0.0-0.7); EOS% 1.3 % (0.0-10.0); HEMATOCRIT 43.4 % (42.0-52.0); HEMOGLOBIN 14.3 g/dL (14.0-18.0); LYMPH# 1.14 X1000 (1.2-3.4); LYMPH% 12.1 % (20.5-51.1); MCH 29.5 PG (27-31); MCHC 32.9 g/dL (33-37); MCV 89.5 FL (81-99); MONO# 1.56 X1000 (0.11-0.59); MONO% 16.5 % (1.7-9.3); MPV 9.5 FL (7.4-10.4); NEUT# 6.59 X1000 (1.4-6.5); NEUT% 69.9 % (42.2-75.2); PLT 356 X1000 (130-400); RBC 4.85 XMIL (4.7-6.1); WBC 9.43 X1000 (4.8-10.8)
[2018-10-28 07:35] LABS: AGAP 12; BUN 4 mg/dL (8-22); CALCIUM 8.7 mg/dL (8.8-10.2); CHLORIDE 101 mmol/L (98-107); COSMO 274; CREATININE 0.6 mg/dL (0.7-1.2); ESTIMATED GFR > 60; GLUCOSE 96 mg/dL (70-104); POTASSIUM 3.8 mmol/L (3.5-5.1); SODIUM 139 mmol/L (136-145); TCO2 26 mmol/L (25-35)
--- NOTE | 2018-10-28 08:59 | Diag Imaging Result Doc PS360 ---
CT GUIDED BX SOFT TISSUE - 10/28/2018 INDICATION: extensive omental nodules, prob carcinomatosis TECHNIQUE: The risks and benefits of the procedure were discussed with the patient. All questions were answered. Written and verbal informed consent was obtained. Overlying skin was prepped and draped in sterile fashion. Anesthesia was achieved with injection of 10 cc of 1% lidocaine. COMPARISON: CT from 10/18/2018 FINDINGS: The peritoneum in the left side of the umbilicus was biopsied. The 6/11 cm 17/18 gauge biopsy needle set was used. 10 biopsy specimens were obtained. Also a trace amount of ascites was aspirated and sent for analysis. IMPRESSION: Successful and uncomplicated CT-guided omental nodule biopsy. Electronically signed by Coy Nguyen 10/28/2018 8:57 AM
--- NOTE | 2018-10-28 16:03 | GASTROENTEROLOGY PROGRESS NOTE ---
DATE: 10/28/2018 SUBJECTIVE: Patient resting in bed. He just came back from a CT-guided omental biopsy. I will follow the results. Patient does have abdominal pain in the right side at the site of the biopsy. He denies any nausea or vomiting. He denies any fevers, rigors, chills. He is moving his bowels. He was able to eat his meal this morning. OBJECTIVE: Vitals: Temperature 98.3 degrees, pulse rate of 88, respiratory rate of 19, blood pressure 131/88, saturating 98% room air. Weight: BMI of 41.1 kg/m2. General Appearance: Morbidly obese. Lying in bed, in no acute distress. HEENT: No pallor. No icterus. Neck: Supple. Abdomen: Obese. Discomfort around the biopsy site. No guarding or rebound. Extremities: No cyanosis or clubbing. Neurological: Alert, awake, oriented x3. LABORATORY DATA: Hemoglobin 14.3, hematocrit 43.4, white count 9.43, platelet count 356. Sodium 139, potassium 3.8, chloride 101, bicarbonate 26, anion gap 12, BUN 4 creatinine 0.6, glucose 96, calcium 8.7, total bilirubin 1.04, direct 0.5, AST 143, ALT 162, alkaline phosphatase 237, total protein 6.8, albumin 3.3. CEA is 2. CA19-9 is 120 ,slightly high. HIV is nonreactive. MICROBIOLOGY: None. RADIOLOGICAL DATA: 1. Ultrasound of the abdomen showed ascites, hepatic steatosis versus cirrhosis. 2. CT of the chest show worsened left pleural effusion, subsegmental atelectasis in the right lower lobe, prevascular adenopathy. 3. CT of the abdomen and pelvis showed on 10/18/2018 severe omental nodularity, trace ascites, highly concerning for peritoneal carcinomatosis. The source is unclear. IMPRESSION AND PLAN: 1. CT-guided omental biopsy today for omental nodularity concerning for peritoneal carcinomatosis. 2. Abdominal pain which is better with medicines. 3. Nausea/vomiting, resolved. 4. Morbid obesity. BMI of 41.1. 5. Elevated liver enzymes, likely fatty liver and ultrasound showing hepatic steatosis and ascites. 6. Altered bowel habits, but is improved. RECOMMENDATIONS: 1. We will follow up on the omental biopsy. His CA19-[address] Elise Barboza is on board. We will start him on GI prophylaxis with PPI. We will start him on bowel regimen with Shoshana- Colace. 2. He is on IV fluids, IV pain control. 3. Continue to watch liver enzymes. The above plans were discussed with the patient, and all questions were answered. Please call us with any further questions. cc: MD Elise Miguel MD [facility]
--- NOTE | 2018-10-28 17:15 | PROGRESS NOTE ---
DATE: 10/28/2018 INTERVAL HISTORY: The patient's pain remains well controlled. Status post biopsy by IR this morning. Nausea remains largely resolved. No new complaints. REVIEW OF SYSTEMS: Twelve point review of systems negative except as per interval history. LABS: CBC and basic metabolic panel essentially unremarkable. VITAL SIGNS: T-max 98.7 degrees, pulse 91, respirations 19, blood pressure 111/73, O2 saturation 98% on room air. PHYSICAL EXAMINATION: General: No acute distress. Vital signs: As above. HEENT: Normocephalic, atraumatic. Moist mucous membranes. No cervical adenopathy. Cardiovascular: Regular rate and rhythm. No murmurs noted. Pulmonary: Clear to auscultation bilaterally. No wheezing, rales, or rhonchi. Abdomen: Soft, nontender, nondistended. Bowel sounds positive. Needle stick site with Band-Aid. Extremities: Peripheral pulses intact. No clubbing or cyanosis. Neurologic: Cranial nerves grossly intact. No focal deficits identified. Psychiatric: Remains normal mood and affect. Awake, alert, and oriented x3. Skin: No new rashes or lesions. No jaundice. ASSESSMENT AND PLAN: 1. Extensive omental nodules. Possible malignant ascites. Likely peritoneal carcinomatosis. Patient with CT finding strongly concerning for metastatic cancer with unknown primary. Status post CT-guided IR biopsy this morning. CEA within normal limits. CT chest with no obvious primary cancer or metastasis in the thorax. HIV negative. Oncology following. Will await results of biopsy and further recommendations by Oncology. If the patient's symptoms can be controlled with p.o. medications and then may be able to be discharged and follow up with Oncology in clinic. 2. Abdominal pain. The patient has required a fair amount of morphine up to this point but will attempt to transition him over to p.o. pain medication in anticipation of discharge in the near future. 3. Nausea, essentially resolved. Zofran effective on the rare occasions that his nausea recurs. 4. Transaminitis. Essentially normal on admission, subsequently trended up. Ultrasound obtained showing hepatic steatosis versus cirrhosis. Total bilirubin only minimally elevated and INR within normal so seems unlikely to be cirrhosis, likely fatty liver. Discussed with patient. 5. Mild dehydration. Present on admission, resolved with fluids. P.o. intake much improved.
[2018-10-28] MEDS: NORCO-7.5 PO PRN ×2 (18:45→23:09)
[2018-10-29] MEDS: MORPHINE IV PRN ×3 (01:45→17:30)
[2018-10-29] MEDS: NS 1,000 ML IV SCH ×2 (01:46→17:36)
[2018-10-29] MEDS: NORCO-7.5 PO PRN ×3 (06:12→13:57)
[2018-10-29] MEDS ORDERED: PROTONIX PO SCH (07:00)
[2018-10-29 07:23] LABS: BASO# 0.02 X1000 (0.0-0.2); BASO% 0.2 % (0.0-0.8); EOS# 0.14 X1000 (0.0-0.7); EOS% 1.3 % (0.0-10.0); HEMATOCRIT 40.6 % (42.0-52.0); HEMOGLOBIN 13.5 g/dL (14.0-18.0); IMM GRAN# 0.02 X1000 (0.0-0.04); IMM GRAN% 0.2 % (0.0-0.5); LYMPH# 0.99 X1000 (1.2-3.4); LYMPH% 9.3 % (20.5-51.1); MCH 29.8 PG (27-31); MCHC 33.3 g/dL (33-37); MCV 89.6 FL (81-99); MONO# 1.99 X1000 (0.11-0.59); MONO% 18.6 % (1.7-9.3); MPV 9.7 FL (7.4-10.4); NEUT# 7.53 X1000 (1.4-6.5); NEUT% 70.4 % (42.2-75.2); PLT 347 X1000 (130-400); RBC 4.53 XMIL (4.7-6.1); WBC 10.69 X1000 (4.8-10.8)
[2018-10-29 07:37] LABS: AGAP 12; BUN 4 mg/dL (8-22); CALCIUM 8.7 mg/dL (8.8-10.2); CHLORIDE 100 mmol/L (98-107); COSMO 272; CREATININE 0.7 mg/dL (0.7-1.2); ESTIMATED GFR > 60; GLUCOSE 95 mg/dL (70-104); SODIUM 138 mmol/L (136-145); TCO2 26 mmol/L (25-35)
[2018-10-29] MEDS ORDERED: PERICOLACE PO SCH (09:00)
[2018-10-29 13:53] LABS: HEPATITIS PROFILE ACUTE SEE COMMENTS
[2018-10-29] MEDS: ZOFRAN IV PRN (15:07)
[2018-10-29 20:18] VITALS: BP 119/83
--- NOTE | 2018-10-29 23:39 | PROVIDER PROGRESS NOTE ---
Progress Note S: No acute overnight events. Afebrile. Patient denies N/V/F, CP, SOB. Abdominal pain controlled. +BMs. Omental lesion biopsy pending. O: Last Vital Signs Temp 97.7 F 10/29/18 20:00 Pulse 92 H 10/29/18 20:00 Resp 16 10/29/18 15:26 BP 119/83 10/29/18 20:00 Pulse Ox 98 10/29/18 20:00 Height 6 ft Weight 303 lb 5 oz GEN: awake, alert, NAD HEENT: anicteric, poor dentition NECK: supple, no JVD PULM: CTAB, no wheezing ABD: soft mild TTP right > left abdomen, no rebound or guarding EXT: no cce NEURO: nonfocal LABS: 10/29/18 10/29/18 06:57 06:57 WBC 10.69 Hgb 13.5 L Plt Count 347 Sodium 138 Potassium 4.0 Chloride 100 Carbon Dioxide 26 BUN [address] GUIDED BX SOFT TISSUE - 10/28/2018 INDICATION: extensive omental nodules, prob carcinomatosis TECHNIQUE: The risks and benefits of the procedure were discussed with the patient. All questions were answered. Written and verbal informed consent was obtained. Overlying skin was prepped and draped in sterile fashion. Anesthesia was achieved with injection of 10 cc of 1% lidocaine. COMPARISON: CT from 10/18/2018 FINDINGS: The peritoneum in the left side of the umbilicus was biopsied. The 6/11 cm 17/18 gauge biopsy needle set was used. 10 biopsy specimens were obtained. Also a trace amount of ascites was aspirated and sent for analysis. IMPRESSION: Successful and uncomplicated CT-guided omental nodule biopsy. EXAM: US ABDOMEN-COMPLETE 10/27/2018 HISTORY: abnormal LFTs TECHNIQUE: Abdominal ultrasound: COMMENT: There is ascites. The liver is slightly hyperechoic. The visualized portions of the pancreas are within normal limits. The visualized portions of the aorta and inferior vena cava are within normal limits. There is antegrade flow in the portal vein. There is no evidence of biliary dilatation the common bile duct measuring less than 5 mm. The kidneys are without evidence of hydronephrosis. There is a 2.5 cm cyst in the upper mid left kidney. The spleen is not enlarged. IMPRESSION: Ascites. Hepatic steatosis versus cirrhosis. A/P: Mr. Edmar Huitron is a 33-year-old gentleman with history of morbid obesity and NAFLD who presents with 4 weeks of worsening abdominal pain with associated nausea and vomiting, alternating diarrhea/constipation found to have severe omental peritoneal carcinomatosis concerning for metastatic disease of unknown primary. Oncology following; apprec recs.GI was consulted for further evaluation to determine the etiology of CT findings. CT-guided biopsy of omental lesions done yesterday. Pathology pending. Per pathologist; appears to adenocarcinoma. Patient's abdominal pain controlled and tolerating PO. # Peritoneal carcinomatosis # Abdominal pain: controlled # Nausea/vomiting: resolved # NAFLD Patient discharged. Patient instructed to follow-up with GI in 1-2 weeks.
--- NOTE | 2018-10-30 06:42 | DISCHARGE SUMMARY ---
ADMISSION DATE: 10/24/2018 DISCHARGE DATE: 10/29/2018 DISCHARGE DISPOSITION: Home. DISCHARGE CONDITION: Hemodynamically stable. Alert and oriented x3. Eating without any discomfort. His abdominal pain is well controlled on oral medications. The patient requested to be discharged, and he promises to see Oncology and Gastroenterology as an outpatient. DISCHARGE DIAGNOSES: 1. Peritoneal carcinomatosis likely malignant of unknown primary with workup in progress and pending biopsy results as well as ascitic fluid results. 2. Abdominal pain because of peritoneal carcinomatosis. 3. Transaminitis because of fatty liver. DISCHARGE MEDICATIONS: 1. [place] 7.5 1 mg every 4 hours as needed for pain more than 7 on 10, 50 tablets have been prescribed. 2. Senna docusate 1 tablet daily, 30 tablets have been prescribed. 3. Acetaminophen 650 mg every 6 hours as needed for pain less than 7 on 10. The patient should not take more than 4 g of acetaminophen in 24 hours CONSULTATIONS DURING HOSPITALIZATION: 1. Hematology/Oncology, Dr. Barboza. 2. Gastro[address] Ramirez. VITALS: At the time of discharge, temperature 98.2 degrees, pulse 88, respiratory 16, blood pressure 126/80, and saturating 97% on room air. PHYSICAL EXAMINATION: General: Morbidly obese not in any acute distress. Oral cavity is moist. Lungs: Air entry bilaterally equal. No wheeze, rhonchi, or crackles. Cardiovascular: S1, S2 normal. No murmur, rub, or gallop. Breasts: He has bilateral mastectomy scar, and also has hypertrophy of right nipple. Abdomen: Transverse scar of cholecystectomy. Soft and nontender. Active bowel sounds. No lower extremity edema. LABORATORY: During hospital discharge, hemoglobin 13.5, and platelet 347,000. Normal kidney function. Hepatitis panel was negative. His CA-99 was elevated to 120. MICROBIOLOGY DURING HOSPITAL ADMISSION: None. SIGNIFICANT IMAGING DURING HOSPITAL ADMISSION: Abdominal x-ray on admission did not have any acute disease. Chest CT on admission had worsened left pleural effusions, and subsegmental atelectasis in the right lower lobe. Abdominal ultrasound has hepatic steatosis. PROCEDURES DURING HOSPITAL ADMISSION: On 10/28/2018, he had successfully uncomplicated CT-guided omental nodule biopsy. HOSPITAL COURSE SUMMARY: Mr. Huitron is a 33-year-old man with past medical history of morbid obesity, cholecystectomy at the age of 10, bilateral mastectomy for gynecomastia, who had recently been to emergency room on 10/18/2018 for abdominal pain and tenderness, and was found to have severe omental nodularity and trace ascites, who could not see Outpatient Oncology and came in on 10/24/2018 with persistent abdominal pain, nausea and vomiting. This time around he was admitted for intravenous fluid resuscitation and intravenous pain medication. The patient's pain regimen was later on transitioned from intravenous morphine to oral [place] which was controlling his pain medication. It was controlling his pain better. He has had regular bowel movements. He underwent CT-guided biopsy of omental nodule on 10/28, which he tolerated well. Postoperative course was unremarkable. On 10/29, he requested to be discharged. I explained to him about need for close follow-up with Oncology for the omental nodule biopsy results as well as ascitic fluid results. Also, I discussed with him about the unknown nature of a primary cancer at the moment, and that he may need future endoscopy upper and lower colonoscopy based on the biopsy reports. He understood it. His significant other is at bedside as well. He promises me to schedule an appointment with Oncology, and see them in the outpatient setting. He will be discharged according to his request. TIME SPENT: More than 30 minutes spent in discharging this patient. Plan of care discussed with him. cc: Chadd Funes MD
== END 2018-10-29 20:20 | disposition home or self-care (01) | DRG 375 ==
LOC: ED 12:17 → SUATTDRO 15:04 → 3N 15:04
PROVIDERS: ATTEND Internal Medicine
CPT/HCPCS: 20206; 71260; 74000; 74018; 76700; 77012; 80048; 80053; 80074; 80076; 81001; 82042; 82150; 82378; 82945; 83615; 83690; 84157; 85025; 85610; 86301; 86701; 87389; 88112; 88305; 96374; 96375; 99284; A9270; J2270; J2405; J7030; Q9967

== ENCOUNTER 2019-06-25 08:17 | Inpatient (IN) ==
[2019-06-25] MEDS ORDERED: LASIX IV ONE ×3 (08:32→18:36)
[2019-06-25] MEDS ORDERED: FENTANYL IV ONE (08:32)
[2019-06-25] MEDS ORDERED: NS 1,000 ML IV ONE (08:32)
[2019-06-25] MEDS ORDERED: ZOFRAN IV ONE (08:32)
[2019-06-25] MEDS ORDERED: RELISTOR SUBQ ONE (08:32)
[2019-06-25] MEDS ORDERED: FLEET MINERAL OIL ENEMA PR ONE (08:33)
[2019-06-25 09:05] LABS: ALLEN TEST NO; BE 19.9 mmoll (-3.0-3.0); BLOOD TYPE ARTERIAL; HCO3-(ACT) 40.3 mmoll (20.0-26.0); METHB 1.2 % (0.0-1.5); O2(CT) 10.3 mL/dL (15.0-23.0); PCO2(98.6) 48 mmHg (35-45); PO2(98.6) 52 mmHg (60-100); SAMPLE BLOOD; SAO2 92.7 % (95.0-100.0); THB 8.4 g/dL (11.5-17.4)
[2019-06-25 09:07] LABS: MODALITY CANNULA; O2HB 87.1 % (95.0-99.0); pH(98.6) 7.57 (7.35-7.45)
[2019-06-25] MEDS ORDERED: TYLENOL PO ONE (09:24)
[2019-06-25] MEDS ORDERED: NS 500 ML IV ONE (09:24)
[2019-06-25] MEDS ORDERED: BENADRYL IV ONE (09:24)
--- NOTE | 2019-06-25 09:24 | PROVIDER DOCUMENTATION ---
HPI-Respiratory General - General Chief Complaint: Shortness of Breath Stated Complaint: SOB Time Seen by Provider: 06/25/19 08:29 Source: patient, EMS Allergies/Adverse Reactions: Patient Allergies Allergy/AdvReac Type Severity Reaction Status Date / Time doxycycline Allergy Severe ANAPHYLAXIS Verified 06/25/19 09:15 cat gut sutures Allergy Severe infection Uncoded 06/25/19 09:15 @ site Home Medications: Home Medication List Medication Instructions Recorded Confirmed Last Taken Type Hydrocodone/Acetaminophen [Harrison 10 mg PO Q6HR 11/20/18 06/25/19 06/24/19 History 10-325 Tablet] Morphine E.r. [Ms Contin] 3 tab PO BID 11/20/18 06/25/19 06/24/19 History Promethazine [Phenergan] 25 mg PO Q6H PRN PRN 04/09/19 06/25/19 06/20/19 History Docusate Sodium [Colace] 100 mg PO DAILY 06/25/19 06/25/19 06/20/19 History - History of Present Illness-Resp Nature of Presenting Problem: Patient with Stage IV gastric cancer on chemo, c/o SOB, lower abdominal pain, vomitiing (bilious) and no BM gradually worsening over 10 days. On morphine ER and norco 10 for pain. Last chemo was last week. Sees Dr. Bhandari. Has a power port. Brought by EMS, given zofran 4mg IM en route Quality of Pain: reports: aching, fullness Severity in ED: reports: severe Onset/Duration: reports: gradual, other (10 days) Timing: reports: still present, constant, getting worse Context: reports: recent chemotherapy Exposure: reports: unknown cause Cough Quality/Degree: reports: no cough Episode Frequency: occasional episodes Current Respiratory Medication Therapy: Initiated none Modifying Factors: improves with: rest. worse with: exertion, deep breath Associated Symptoms: reports: dizziness, headache (mild), lightheadedness, shortness of breath, sweaty. denies: chest pain/soreness, cough, earache, facial pain, fever/chills, flu-like symptoms Similar Symptoms Previously?: No Recently seen or treated by another doctor?: Yes (Dr. Bhandari and Vel) Review of Systems - Adult - REVIEW OF SYSTEMS - ADULT Constitutional: reports: no symptoms reported Eyes: reports: no symptoms reported Ears, Nose, Mouth & Throat: reports: no symptoms reported Cardiovascular: reports: no symptoms reported Respiratory: reports: see HPI, dyspnea on exertion, shortness of breath. denies: chronic cough, cough, excessive sputum production, hemoptysis, pleurisy, wheezing Gastrointestinal: reports: see HPI, abdominal pain, constipation (x 10d), frequent heartburn, nausea, poor appetite, vomiting. denies: hematemesis, diarrhea, difficulty swallowing, rectal bleeding Genitourinary: reports: no symptoms reported Musculoskeletal: reports: no symptoms reported Integumentary: reports: see HPI, hair loss. denies: hives Neurological: reports: no symptoms reported Psychiatric: reports: no symptoms reported Endocrine: reports: no symptoms reported Hematologic/Lymphatic: reports: see HPI, easy bruising, low blood count Allergic/Immunologic: reports: no symptoms reported All Other Systems: Reviewed and Negative Past History - Adult - PAST MEDICAL HISTORY-ADULT Review of Records: reports: Old Records Reviewed, Nursing Assessment Review, Medications Reviewed, Social history reviewed & non-contributory. Major Childhood Illnesses: reports: denies history, other (cholecystectomy ) Cardiovascular: reports: denies history Respiratory: reports: denies history Gastrointestinal: reports: cholelithiasis (cholecystectomy age 10), cancer, GERD Obstetrical/Gynecological: reports: denies history Genitourinary: reports: denies history Musculoskeletal: reports: denies history Neurological: reports: denies history Psychiatric: reports: denies history Endocrine/Immune: reports: denies history Other Conditions: reports: MRSA - PRIOR SURGERIES/PROCEDURES Surgical/Procedure History: reports: cholecystectomy (age 10), 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 Cameron) - IMMUNIZATION STATUS Childhood Immunizations: UTD, See Nurse Assessment Flu Vaccine: See Nurse Assessment - FAMILY HISTORY Family History: reviewed, not pertinent - SOCIAL HISTORY Smoking: cigarettes, less than 1 pack/day Provider spent 3-5 mins advising pt. on dangers of tobacco.: Discussed manners to quit use, and f/u contacts for add'l counseling. Substance Use: none/never Alcohol Use Frequency: rarely Living Situation: family Physical Exam-General - PHYSICAL EXAM-ADULT Initial Vital Signs Reviewed: Yes (tachycardic, otherwise normal) - CONSTITUTIONAL General Appearance: alert, mild distress (ill), thin, other (pale, actively vomiting.) - EYES Eyes: PERRL/EOMI, pale conjunctivae - HEAD, EARS, NOSE, MOUTH & THROAT HENMT: normocephalic/atraumatic, TMs normal, other (pale mucous membranes). negative: moist mucous membranes (dry) - NECK Neck: full range of motion, supple, normal inspection - RESPIRATORY Respiratory: chest non-tender, no pleuratic chest pain, no respiratory distress, no accessory muscle use, decreased breath sounds, dull on percussion, increased rate, other (unable to take deep breath) - CARDIOVASCULAR Cardiovascular: normal peripheral pulses, regular rate, rhythm, no edema, no JVD , no murmur, tachycardia, gallop/S3 - CHEST (BREASTS) Chest/Breast: other (there is a port right upper chest wall, no erythema, tenderness, or swelling.) - GASTROINTESTINAL (ABDOMEN) Abdominal Exam: normal bowel sounds, no pulsatile mass, distended (with fluid wave, anasarca), tenderness (mild upper abdomen, right worse than left), mass (RUQ), hepatomegaly. negative: guarding, rigid, rebound, Sheehan's sign - LYMPHATIC Lymphatic: no adenopathy - MUSCULOSKELETAL Back Exam: normal inspection, no CVA tenderness, no vertebral tenderness, decreased range of motion Extremity: normal range of motion (due to edema), non-tender, normal capillary refill, pedal edema (4+) Peripheral Pulses: radial (R): 2+, radial (L): 2+ - SKIN Integumentary: normal turgor, warm/dry, pallor - NEUROLOGIC Neurologic: gun stock checker II-XII nml as tested, grossly normal, no motor/sensory deficits - PSYCHIATRIC Psych/Mental Status: normal mood/affect, normal thought content, normal thought process, oriented x 3 Progress - PLAN OF CARE/RESULTS Progress/Plan/Lab Results: Vital Signs - 8 hr 06/25/19 08:34 06/25/19 08:38 06/25/19 11:17 Temperature 98.5 F 98.0 F Pulse Rate 127 H 133 H 122 H Respiratory Rate 21 16 18 Blood Pressure 122/93 122/93 126/97 O2 Sat by Pulse Oximetry 97 95 96 06/25/19 11:32 06/25/19 11:47 Temperature 97.9 F 98.5 F Pulse Rate 132 H 120 H Respiratory Rate 15 15 Blood Pressure 113/86 115/74 O2 Sat by Pulse Oximetry 97 100 06/25/19 09:00 Influenza Screen - Final Nasopharyngeal Laboratory Results - last 24 hr 06/25/19 06/25/19 06/25/19 08:50 08:50 08:50 WBC RBC Hgb Hct MCV MCH MCHC RDW Std Deviation Plt Count MPV Immature Gran % (Auto) Neut % (Auto) Lymph % (Auto) Andrews % (Auto) Eos % (Auto) Baso % (Auto) Immature Gran # (Auto) Neut # (Auto) Lymph # (Auto) Andrews # (Auto) Eos # (Auto) Baso # (Auto) Segmented Neutrophils Band Neutrophils Lymphocytes Monocytes Large Platelets Anisocytosis Macrocytosis PT INR PTT (Actin FS) Specimen Type Sample Site pH pCO2 pO2 HCO3 Base Excess Oxyhemoglobin ABG O2 Sat (Calculated) ABG O2 Saturation ABG Carboxyhemoglobin ABG Methemoglobin Last Test A-a O2 Difference Total Hemoglobin Lactate Liter Flow Blood Gas Modality FiO2 % Sodium 138 Potassium 3.3 L Chloride 85 L Carbon Dioxide 39 H Anion Gap 14 BUN 11 Creatinine 0.5 L Estimated GFR/1.73 m2 > 60 BUN/Creatinine Ratio 22 Glucose 103 Calculated Osmolality 275 Calcium 9.1 Magnesium 1.0 L* Total Bilirubin 0.96 AST 19 ALT 16 Alkaline Phosphatase 93 Ammonia 10 L Creatine Kinase 24 Troponin T High Sens Total Protein 6.8 Albumin 3.0 L Globulin 3.8 Albumin/Globulin Ratio 0.8 Lipase 9 L Plasma Lactate TSH 1.72 Blood Type Antibody Screen Crossmatch 06/25/19 06/25/19 06/25/19 08:50 08:50 08:50 WBC 3.11 L RBC 1.36 L Hgb 4.8 L* Hct 15.2 L MCV 111.8 H MCH 35.3 H MCHC 31.6 L RDW Std Deviation 19.2 H Plt Count 16 L* MPV 13.8 H Immature Gran % (Auto) 0.0 Neut % (Auto) 9.0 L Lymph % (Auto) 23.5 Andrews % (Auto) 66.9 H Eos % (Auto) 0.3 Baso % (Auto) 0.3 Immature Gran # (Auto) 0.00 Neut # (Auto) 0.28 L* Lymph # (Auto) 0.73 L Andrews # (Auto) 2.08 H Eos # (Auto) 0.01 Baso # (Auto) 0.01 Segmented Neutrophils 10 L Band Neutrophils 10 H Lymphocytes 40 Monocytes 40 H Large Platelets OCCASIONAL Anisocytosis 2+ Macrocytosis 2+ PT INR PTT (Actin FS) Specimen Type Sample Site pH pCO2 pO2 HCO3 Base Excess Oxyhemoglobin ABG O2 Sat (Calculated) ABG O2 Saturation ABG Carboxyhemoglobin ABG Methemoglobin Last Test A-a O2 Difference Total Hemoglobin Lactate Liter Flow Blood Gas Modality FiO2 % Sodium Potassium Chloride Carbon Dioxide Anion Gap BUN Creatinine Estimated GFR/1.73 m2 BUN/Creatinine Ratio Glucose Calculated Osmolality Calcium Magnesium Total Bilirubin AST ALT Alkaline Phosphatase Ammonia Creatine Kinase Troponin T High Sens 8 Total Protein Albumin Globulin Albumin/Globulin Ratio Lipase Plasma Lactate 1.4 TSH Blood Type Antibody Screen Crossmatch 06/25/19 06/25/19 06/25/19 08:50 08:50 09:00 WBC RBC Hgb Hct MCV MCH MCHC RDW Std Deviation Plt Count MPV Immature Gran % (Auto) Neut % (Auto) Lymph % (Auto) Andrews % (Auto) Eos % (Auto) Baso % (Auto) Immature Gran # (Auto) Neut # (Auto) Lymph # (Auto) Andrews # (Auto) Eos # (Auto) Baso # (Auto) Segmented Neutrophils Band Neutrophils Lymphocytes Monocytes Large Platelets Anisocytosis Macrocytosis PT 12.4 INR 0.92 PTT (Actin FS) 38.4 Specimen Type ARTERIAL Sample Site R BRACHIAL pH 7.57 H* pCO2 48 H pO2 52 L HCO3 40.3 H Base Excess 19.9 H Oxyhemoglobin 87.1 L* ABG O2 Sat (Calculated) 10.3 L ABG O2 Saturation 92.7 L ABG Carboxyhemoglobin 4.80 H ABG Methemoglobin 1.2 Last Test NO A-a O2 Difference 145.0 Total Hemoglobin 8.4 L Lactate 1.50 Liter Flow 4.0 Blood Gas Modality CANNULA FiO2 % 36.0 Sodium Potassium Chloride Carbon Dioxide Anion Gap BUN Creatinine Estimated GFR/1.73 m2 BUN/Creatinine Ratio Glucose Calculated Osmolality Calcium Magnesium Total Bilirubin AST ALT Alkaline Phosphatase Ammonia Creatine Kinase Troponin T High Sens Total Protein Albumin Globulin Albumin/Globulin Ratio Lipase Plasma Lactate TSH Blood Type B POSITIVE Antibody Screen NEGATIVE Crossmatch See Detail Orders Category Date Time Status Consent for Test/Procedure DIRECTED Care 06/25/19 09:24 Active NEWS Score 2-4:Order NEWS Lactate Series NOW Care 06/25/19 08:42 Active Notify MD if DIRECTED Care 06/25/19 09:24 Active Nursing- Obtain EKG once Care 06/25/19 08:30 Active Transfuse .Give-Transfuse Care 06/25/19 09:24 Active Transfuse .Give-Transfuse Care 06/25/19 09:25 Active NPO Diet 06/25/19 08:30 Active CHEST-PORTABLE [RAD] Stat Exams 06/25/19 08:[address] ABD/PELVIS W/IV CONT ONLY [CT] Stat Exams 06/25/19 08:[address] HEAD W/O CONTRAST [CT] Stat Exams 06/25/19 09:30 Completed ABG [RESP] Routine Lab 06/25/19 09:00 Completed AMMONIA [CHEM] Stat Lab 06/25/19 08:50 Completed BLOOD CULTURE [BLDCUL] Stat Lab 06/25/19 08:50 Results CBC WITH ELECTRONIC DIFF [HEME] Stat Lab 06/25/19 08:50 Completed CK PROFILE [SP CHEM] Stat Lab 06/25/19 08:50 Completed COMPREHENSIVE METABOLIC PANEL [CHEM] Stat Lab 06/25/19 08:50 Completed INFLUENZA SCREEN A/B Stat Lab 06/25/19 09:00 Completed IRRADIATED LRPC (RED CELLS) [BBK] Stat Lab 06/25/19 08:50 Results IRRADIATED PHERESIS PLATELETS [BBK] Stat Lab 06/25/19 08:50 Results LACTATE, PLASMA [CHEM] Stat Lab 06/25/19 08:50 Completed LIPASE [CHEM] Stat Lab 06/25/19 08:50 Completed MAGNESIUM [CHEM] Stat Lab 06/25/19 08:50 Completed OCCULT BLOOD NON-FECES Stat Lab 06/25/19 08:32 Uncollected OCCULT BLOOD SCREENING [STOOL] Stat Lab 06/25/19 08:32 Uncollected PROTIME WITH INR [COAG] Stat Lab 06/25/19 08:50 Completed PTT [COAG] Stat Lab 06/25/19 08:50 Completed TROPONIN T HIGH SENSITIVITY Stat Lab 06/25/19 08:50 Completed TSH Stat Lab 06/25/19 08:50 Completed TYPE & SCREEN [BBK] Stat Lab 06/25/19 08:50 Results URINALYSIS W/POSS RFLX CULT [URINALYSIS] Stat Lab 06/25/19 08:31 Uncollected 0.9% Sodium Chloride Inj [Ns] 1,000 ml Med 06/25/19 08:32 Discontinued IV 999 mls/hr 0.9% Sodium Chloride Inj [Ns] 500 ml Med 06/25/19 09:24 Active IV 30 mls/hr Acetaminophen [Tylenol] Med 06/25/19 09:24 Discontinued 650 mg PO PREMED ONE Diphenhydramine [Benadryl] Med 06/25/19 09:24 Discontinued 25 mg IV PREMED ONE Fentanyl Med 06/25/19 08:32 Discontinued 50 microgm IV NOW ONE Furosemide [Lasix] Med 06/25/19 09:24 Discontinued 20 mg IV NOW ONE Furosemide [Lasix] Med 06/25/19 08:32 Discontinued 40 mg IV NOW ONE Magnesium Sulfate 2 gm/S.w.i. Med 06/25/19 10:09 Discontinued 2 gm in 50 ml IV NOW Methylnaltrexone [Relistor] Med 06/25/19 08:32 Discontinued 12 mg SUBQ NOW ONE Metoclopramide [Reglan] Med 06/25/19 09:31 Discontinued 10 mg IV NOW ONE Mineral Oil [Fleet Mineral Oil Enema] Med 06/25/19 08:33 Discontinued 133 ml GA NOW ONE Ondansetron [Zofran] Med 06/25/19 08:32 Discontinued 4 mg IV NOW ONE Piperacillin/Tazobactam [Zosyn] 4.5 gm Med 06/25/19 09:27 Discontinued 0.9% Sodium Chloride Inj [Ns] 100 ml IV NOW Potassium Chloride 10 Meq/Swi Med 06/25/19 09:57 Discontinued 10 meq in 100 ml IV ONCE Tbo-Filgrastim [Granix] Med 06/25/19 09:35 Discontinued 480 mcg SUBQ NOW ONE Vancomycin 1 gm/Ns Med 06/25/19 09:27 Discontinued 1 gm in 250 ml IV NOW EKG [EKG] Stat Ther 06/25/19 08:30 Ordered Result Diagrams: 06/25/19 08:50 06/25/19 08:50 - REASSESSMENT Reassessment #1 Time Reassessed: 12:21 Status: improving (with IV fentanyl, IVF, lasix, vanc/zosyn) - XRAY 1 XRAY Study: Chest Impression: Abnormal, See EMR Report (Signed EXAM: CHEST-PORTABLE HISTORY: SOB TECHNIQUE: AP portable at 1039 COMMENT: There is a large left pleural effusion. This was not present on 10/31/2017. There is a Port-A-Cath on the right with its tip in the superior vena cava. The inspiration is less optimal than on the previous study. There is some compressive atelectasis in the left base and platelike atelectasis on the right. IMPRESSION: Large left pleural effusion. Electronically signed by Ady Mayfield 06/25/2019 10:52 AM 06/25/19 1052 Interpreting Physician: Ady Mayfield MD Dictated Date/Time: 06/25/19 1052 cc: Jakub Mon MD; None,PCP) - CT/MRI 1 CT Study: Head Impression: Abnormal, See EMR Report ( EXAM: CT HEAD W/O CONTRAST 06/25/2019 HISTORY: davey, vomiting, thrombocytopenia TECHNIQUE: This exam was performed using automated exposure control, adjustment of mA or kV according to patient size, and/or use of iterative reconstruction technique. COMMENT: There is no evidence of mass effect, however there is a small petechial hemorrhage in the medial posterior frontal cortex on the right which was not present on 07/12/2011. This measures less than 5 mm in diameter. There is no evidence of abnormal extra-axial fluid collection. The visualized paranasal sinuses are clear. The calvarium is intact. IMPRESSION: Small petechial hemorrhage in the right frontal lobe. The findings were discussed with Jakub Mon MD at 06/25/2019 11:19 AM. Electronically signed by Ady Mayfield 06/25/2019 11:19 AM 06/25/19 1119 Interpreting Physician: Ady Mayfield MD Dictated Date/Time: 06/25/19 1114 cc: Jakub Mon MD; None,PCP) 2 CT Study: Abdomen, Pelvis Impression: Abnormal, See EMR Report ( EXAM: CT ABD/PELVIS W/IV CONT ONLY 06/25/2019 HISTORY: RUQ pain, vomiting TECHNIQUE: This exam was performed using automated exposure control, adjustment of mA or kV according to patient size, and/or use of iterative reconstruction technique. COMMENT: The current study is compared with the previous examination of 02/14/2019. There is a large left pleural fluid collection. This has a CT density of 14 Hounsfield units but there is some suggestion of denser material dependently measuring 18 Hounsfield units. There is groundglass opacity in the right middle lobe laterally and inferomedially. There is compressive atelectasis of most of the visualized left lower lobe and lingula. There is ascites which was present at the time the previous study. There continues to be some nodularity and thickening of the omentum which has not changed appreciably since the previous study. This appears somewhat worse than on the previous examination. The spleen is not enlarged measuring 9.2 cm in anterior posterior dimension. The liver is unremarkable in appearance. There has been cholecystectomy. There is some fluid in the stomach. There is dilatation with fluid in the proximal small bowel. There is no clear transition zone however the distal small bowel is normal in caliber. The colon is not distended. The small bowel dilatation was not present at the time the p revious study. The kidneys are without evidence of hydronephrosis or mass. There is an apparent 2 mm calculus in the lower pole of the left kidney. There is a small cortical cyst in the upper pole. The aorta is not distended. The portal vein appears to be patent. There is subcutaneous edema particularly in the flanks. Pelvis: The urinary bladder is not particularly distended. There is a large amount of fluid in the pelvis. There is stool and some fluid contents in the distal colon and rectum. The regional skeleton is stable in appearance. IMPRESSION: 1. Large left pleural fluid collection. Pulmonary edema versus pneumonia in the right middle lobe. Atelectasis of the left lower lobe and lingula. 2. Massive ascites. This may be malignant. 3. Partial small bowel obstruction versus ileus. Electronically signed by Ady Mayfield 06/25/2019 11:39 AM 06/25/19 1139 Interpreting Physician: Ady Mayfield MD Dictated Date/Time: 06/25/19 1123 cc: Jakub Mon MD; None,PCP) - CONSULTS/PCP/HOSPITALIST Notification #1 *Consult/PCP/Hospitalist*: Jabari Time Discussed: 09:36 Reason/Comments: GIve Neupogen, will see in consultation Consult Disposition: Admit, other #2 Consult: HH Transfer called for poss NS consultation @1125 Time Discussed: 12:17 (Dr. Luis, Neurosurgery) Reason/Comments: Keep here, repeat CT tomorrow, correct platelets Consult Disposition: other #3 Consult: oscar Carbajal, paged at 1218 Time Discussed: 12:22 Consult Disposition: Will see in ED, Admit ([facility]) Departure - Departure Date of Disposition Decision: 06/25/19 Time of Disposition Decision: 12:18 DIAGNOSIS: Pancytopenia due to chemotherapy, Anasarca, Hypokalemia, Pleural effusion on left, Acute intracerebral hemorrhage, Malignant ascites, Partial small bowel o bstruction, Hypomagnesemia syndrome Nausea & vomiting Qualifiers: Vomiting type: bilious vomiting Qualified Code(s): R11.14 - Bilious vomiting Disposition: ADMITTED INPATIENT 09 Certified Medical Emergency: Emergent Condition: Critical Referrals and Follow-Ups: None,PCP [Primary Care Provider] - - Critical Care Note This patient required my direct & personal management of CC.: Yes Total Time (mins): 55 Critical Care Statement: This patient required my direct personal management to treat or rule out processes, the absence of which, could potentiallly result in sudden, clinically significant life or limb threatening deterioration. Attestation - Physician/ TRAN Attestation Patient care was provided by Advanced Practice Provider:: No The physician spent face to face time with patient:: Yes Advanced Practice Provider documentation review:: Supervising physician onsite and consulted in the evaluation and care of this patient. The physician did have a face to face encounter with the patient.
[2019-06-25] MEDS ORDERED: VANCOMYCIN 1 GM/NS 1 GM/250 ML IVPB IV ONE ×2 (09:27→16:00)
[2019-06-25] MEDS ORDERED: ZOSYN 4.5 GM in NS 100 ML IV ONE (09:27)
[2019-06-25 09:28] LABS: INR 0.92; PROTIME 12.4 Seconds (11.0-16.0)
[2019-06-25 09:30] LABS: PTT 38.4 Seconds (22.3-41.8)
[2019-06-25 09:31] LABS: BASO# 0.01 X1000 (0.0-0.2); BASO% 0.3 % (0.0-0.8); EOS# 0.01 X1000 (0.0-0.7); EOS% 0.3 % (0.0-10.0); HEMATOCRIT 15.2 % (42.0-52.0); HEMOGLOBIN 4.8 g/dL (14.0-18.0); LYMPH# 0.73 X1000 (1.2-3.4); LYMPH% 23.5 % (20.5-51.1); MCH 35.3 PG (27-31); MCHC 31.6 g/dL (33-37); MCV 111.8 FL (81-99); MONO# 2.08 X1000 (0.11-0.59); MONO% 66.9 % (1.7-9.3); MPV 13.8 FL (7.4-10.4); NEUT# 0.28 X1000 (1.4-6.5); PLT 16 X1000 (130-400); RBC 1.36 XMIL (4.7-6.1); RDW 19.2 % (11.5-14.5); WBC 3.11 X1000 (4.8-10.8)
[2019-06-25] MEDS ORDERED: REGLAN IV ONE (09:31)
[2019-06-25] MEDS ORDERED: GRANIX SUBQ ONE (09:35)
[2019-06-25 09:40] LABS: ESTIMATED GFR > 60
[2019-06-25 09:49] LABS: AGAP 14; ALB/GLOB RATIO 0.8; ALKALINE PHOSPHATASE 93 U/L (32-122); BUN 11 mg/dL (8-22); CALCIUM 9.1 mg/dL (8.8-10.2); CHLORIDE 85 mmol/L (98-107); CK PROFILE 24 U/L (24-204); COSMO 275; CREATININE 0.5 mg/dL (0.7-1.2); GLUCOSE 103 mg/dL (70-104); GOT 19 U/L (10-34); GPT 16 U/L (10-44); LIPASE 9 U/L (13-60); POTASSIUM 3.3 mmol/L (3.5-5.1); SODIUM 138 mmol/L (136-145); TCO2 39 mmol/L (25-35); TOTAL BILIRUBIN 0.96 mg/dL (0.20-1.00); TOTAL PROTEIN 6.8 g/dL (6.3-8.3)
[2019-06-25] MEDS ORDERED: POTASSIUM CHLORIDE 10 MEQ/SWI 10 MEQ/100 ML IVPB IV ONE (09:57)
[2019-06-25] MEDS ORDERED: MAGNESIUM SULFATE 2 GM/S.W.I. 2 GM/50 ML IVPB IV ONE (10:09)
--- NOTE | 2019-06-25 10:55 | Diag Imaging Result Doc PS360 ---
EXAM: CHEST-PORTABLE 06/25/2019 HISTORY: SOB TECHNIQUE: AP portable at 1039 COMMENT: There is a large left pleural effusion. This was not present on 10/31/2017. There is a Port-A-Cath on the right with its tip in the superior vena cava. The inspiration is less optimal than on the previous study. There is some compressive atelectasis in the left base and platelike atelectasis on the right. IMPRESSION: Large left pleural effusion. Electronically signed by Ady Mayfield 06/25/2019 10:52 AM
[2019-06-25 11:09] LABS: BANDS 10 % (0-1); LYMPHS 40 % (21-51); MONO 40 % (1-9); SEGS 10 % (42-75)
[2019-06-25 11:10] LABS: ANISOCYTOSIS 2+
[2019-06-25 11:11] LABS: LARGE PLATELETS OCCASIONAL
--- NOTE | 2019-06-25 11:21 | Diag Imaging Result Doc PS360 ---
EXAM: CT HEAD W/O CONTRAST 06/25/2019 HISTORY: davey, vomiting, thrombocytopenia TECHNIQUE: This exam was performed using automated exposure control, adjustment of mA or kV according to patient size, and/or use of iterative reconstruction technique. COMMENT: There is no evidence of mass effect, however there is a small petechial hemorrhage in the medial posterior frontal cortex on the right which was not present on 07/12/2011. This measures less than 5 mm in diameter. There is no evidence of abnormal extra-axial fluid collection. The visualized paranasal sinuses are clear. The calvarium is intact. IMPRESSION: Small petechial hemorrhage in the right frontal lobe. The findings were discussed with Jakub Mon MD at 06/25/2019 11:19 AM. Electronically signed by Ady Mayfield 06/25/2019 11:19 AM
--- NOTE | 2019-06-25 11:41 | Diag Imaging Result Doc PS360 ---
EXAM: CT ABD/PELVIS W/IV CONT ONLY 06/25/2019 HISTORY: RUQ pain, vomiting TECHNIQUE: This exam was performed using automated exposure control, adjustment of mA or kV according to patient size, and/or use of iterative reconstruction technique. COMMENT: The current study is compared with the previous examination of 02/14/2019. There is a large left pleural fluid collection. This has a CT density of 14 Hounsfield units but there is some suggestion of denser material dependently measuring 18 Hounsfield units. There is groundglass opacity in the right middle lobe laterally and inferomedially. There is compressive atelectasis of most of the visualized left lower lobe and lingula. There is ascites which was present at the time the previous study. There continues to be some nodularity and thickening of the omentum which has not changed appreciably since the previous study. This appears somewhat worse than on the previous examination. The spleen is not enlarged measuring 9.2 cm in anterior posterior dimension. The liver is unremarkable in appearance. There has been cholecystectomy. There is some fluid in the stomach. There is dilatation with fluid in the proximal small bowel. There is no clear transition zone however the distal small bowel is normal in caliber. The colon is not distended. The small bowel dilatation was not present at the time the previous study. The kidneys are without evidence of hydronephrosis or mass. There is an apparent 2 mm calculus in the lower pole of the left kidney. There is a small cortical cyst in the upper pole. The aorta is not distended. The portal vein appears to be patent. There is subcutaneous edema particularly in the flanks. Pelvis: The urinary bladder is not particularly distended. There is a large amount of fluid in the pelvis. There is stool and some fluid contents in the distal colon and rectum. The regional skeleton is stable in appearance. IMPRESSION: 1. Large left pleural fluid collection. Pulmonary edema versus pneumonia in the right middle lobe. Atelectasis of the left lower lobe and lingula. 2. Massive ascites. This may be malignant. 3. Partial small bowel obstruction versus ileus. Electronically signed by Ady Mayfield 06/25/2019 11:39 AM
[2019-06-25 13:15] LABS: URINE SOURCE CLEAN CATCH
--- NOTE | 2019-06-25 14:37 | HISTORY AND PHYSICAL ---
PRIMARY CARE PHYSICIAN: None. ONCOLOGIST: Dr. Elise Barboza. CHIEF COMPLAINT: Shortness of breath and lower abdominal pain, nausea, vomiting that is bilious with no bowel movement in the past 8 to 10 days with known stage IV gastric cancer. HISTORY OF PRESENTING ILLNESS: This is a 34-year-old male who presents to [facility] with complaint of shortness of breath, lower abdominal pain, nausea with vomiting that is bilious. States his last bowel movement was 8 to 10 days ago. He does take [place] for pain. He is followed by Dr. Elise Barboza for his stage IV gastric cancer. Last chemo treatment 1 week ago today. His workup showed a white blood cell count of 3.11, hemoglobin of 4.8, hematocrit 15.2, platelets 16,000, potassium was 3.3, magnesium was 1.0. His CT of the abdomen and pelvis shows a large left pleural fluid collection with pulmonary edema versus a right middle lobe pneumonia, massive ascites that may be malignant, and a partial small bowel obstruction versus an ileus. His head CT showed a small petechial hemorrhage in the right frontal lobe. ER physician did attempt to transfer to [facility]. He spoke with the [facility] Neurosurgeon road monkey, who felt that he could stay here, repeat his CT of the head tomorrow. He is currently receiving 2 units of irradiated packed red blood cells and he will be admitted for further evaluation and treatment. 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 PAST SURGICAL HISTORY: Cholecystectomy. FAMILY HISTORY: Reviewed and noncontributory. SOCIAL HISTORY: He currently lives with family. Smokes 10 cigarettes a day. Denied any alcohol or illicit drug use. ALLERGIES: Doxycycline and cat gut sutures. HOME MEDICATIONS: Will all be held at this time. He takes Colace 100 mg p.o. daily, [place] 10 p.o. q.6 hours, MS Contin 15 mg 3 tablets p.o. b.i.d., Phenergan 25 mg p.o. q.6 hours p.r.n. LABORATORY DATA: Showed a white blood cell count of 3.11, hemoglobin 4.8, hematocrit 15.2, platelets 16,000. PT and INR of 12.4 and 0.92. ABG with a pH of 7.57, pCO2 of 48, PO2 of 52, bicarb 40.3, and this was on 4 L via nasal cannula. Sodium 138, potassium 3.3, chloride 85, CO2 39, BUN of 11, creatinine 0.5, glucose 103, magnesium of 1, ammonia was 10. Cardiac enzyme was negative. Lipase of 9. Plasma lactate 1.4. TSH 1.72. Urinalysis is pending. Chest x-ray showed a large left pleural effusion. CT of the abdomen and pelvis showed a large left pleural fluid collection, pulmonary edema versus pneumonia in the right middle lobe, atelectasis of the left lower lobe and lingula, massive ascites that may be malignant, and a partial small bowel obstruction versus ileus. Head CT showed a small petechial hemorrhage in the right frontal lobe that measured less than 5 mm in diameter. REVIEW OF SYSTEMS: He denied any fever, chills, blurred vision, dizziness, chest pain, coughing. He had shortness of breath, nausea, vomiting, lower abdominal pain. Denied any burning or hurting with urination. He did have constipation with last bowel movement 8 to 10 days ago. PHYSICAL EXAMINATION: VITAL SIGNS: On arrival he had a temperature of 98.5 degrees, pulse 127, respirations 21, blood pressure 122/93, saturating 97% on 4 L. GENERAL: This is a 34-year-old male who is lying in the bed and answers questions appropriately. HENT: Normocephalic, atraumatic. Normal ENT inspection. EYES: Pupils are equal, round, reactive to light and accommodation. Extraocular movements are intact. LUNGS: Decreased breath sounds. Difficulty taking deep breath. Equal lung expansion and chest wall movement is noted. HEART: Regular rate and rhythm. No murmurs, rubs, or gallops. ABDOMEN: Distended with tenderness. Decreased bowel sounds bilaterally. MUSCULOSKELETAL: He has 5/5 strength x4 extremities. NEUROLOGICAL: The cranial nerves 2-12 appear grossly intact. ASSESSMENT: 1. Left large pleural effusion. 2. Partial small bowel obstruction versus ileus. 3. Pancytopenia with anemia noted. 4. Malignant ascites. 5. Hypomagnesemia. 6. Right middle lobe pneumonia. 7. Small petechial hemorrhage to the right frontal lobe. 8. Stage IV gastric cancer with chemotherapy ongoing. PLAN: He will be admitted to the PVC unit, held n.p.o. We will transfuse 2 units of irradiated packed red blood cells. We will consult Dr. Barboza, Oncology. We will consult Pulmonology and Surgery. He was given potassium 10 mEq IV x1 and magnesium 2 g IV x1. He was also given Relistor or 12 mg subcutaneously x1, mineral oil fleets enema per rectum x1, Granix 480 mcg subcu x1 all in the ER. He received Lasix 20 mg IV x1, premedicated with Tylenol 650 mg p.o. and Benadryl 25 mg IV x1. We will place him on vancomycin per pharmacy protocol, Zosyn 4.5 g IV q.6. We will repeat his CT of the head without contrast in the a.m. as recommended per the Neurosurgeon at [facility]. He will be on reverse isolation, morphine 4 mg IV q.4 hours p.r.n., Lasix 40 mg IV q.12. Do an ultrasound-guided abdominal paracentesis in the a.m. Recheck a CBC, BMP, and magnesium level in the a.m. Further orders after seen by attending and by consultants. Dictated by JO Wilcox for Solitario Huntley MD cc: JO Wilcox MD Pt examined, has tense ascites on exam, extreme pallor; also a large pleural effusion; will need to correct counts, transfusion kinsey before we can proceed with thorancentesis or paracentesis. [facility]
[2019-06-25] MEDS ORDERED: MORPHINE IV PRN (14:52)
[2019-06-25] MEDS ORDERED: VANCOMYCIN IV PER PHARMACY MISC SCH (14:52)
[2019-06-25] MEDS ORDERED: KLOR-CON PO ONE (15:49)
--- NOTE | 2019-06-25 16:28 | GENERAL SURGERY CONSULTATION ---
DATE: 06/25/2019 CHIEF COMPLAINT: Nausea and vomiting. REASON FOR CONSULTATION: Partial obstruction. HISTORY OF PRESENT ILLNESS: This is a 34-year-old gentleman with metastatic gastric cancer. He has been undergoing palliative chemotherapy for the last 6 to 8 months. He has tolerated this okay. He presents however with worsening nausea, vomiting. He is found to be pancytopenic with a hematocrit of 15, platelet count of 16,000, white count of 3.11. Creatinine 0.5, bilirubin is normal. Magnesium as low as 1. He also had a CT scan that showed a large left pleural effusion and a dramatic amount of ascites. He also had apparently a petechial hemorrhage in the right frontal lobe. I was consulted for evaluation of partial bowel obstruction. He denies any shortness of breath. He has had some increasing abdominal distention. Bowel function has been for the most part normal, but a little slow. PAST MEDICAL HISTORY: Metastatic gastric cancer, gastroesophageal reflux, drug-induced seizures, kidney stones, anxiety. SURGICAL HISTORY: He has had an open cholecystectomy and a port placement. SOCIAL HISTORY: He smokes daily half a pack. No alcohol. No illicit drugs. FAMILY HISTORY: Reviewed, noncontributory REVIEW OF SYSTEMS: A 10-point review of systems was performed and negative otherwise as mentioned HPI. PHYSICAL EXAMINATION: Vital Signs: On exam, he is afebrile. He is tachycardic but pulse in the one-teens. General: He appears chronically ill, but in no acute distress. HEENT: No scleral icterus. He does have alopecia. No cervical mass. Cardiovascular: Sinus tachycardia. Pulmonary: No increased work of breathing with equal chest rise. Abdomen: Tensely distended with fluid wave. It is otherwise soft and nontender. Integument: Warm and dry. Psychiatric: Appropriate affect. Vascular: Right subclavian port on peripheral vascular exam without cellulitis is accessed currently. Neurologic: No asterixis. No gross deficits. LABORATORY DATA: White count 3, hematocrit 15, platelets 16,000, pH 7.54, magnesium is 1, creatinine 0.5. I reviewed his imaging. ASSESSMENT/PLAN: 34-year-old gentleman with tense malignant ascites, pancytopenia, suspected obstructive type symptoms related to this. There is a possibility that this is a malignant obstruction but could be ileus given his profound electrolyte abnormalities. I would recommend potassium greater than 4, magnesium greater than 2. NPO with just only sips for comfort. He is planned for paracentesis tomorrow. He may ultimately benefit from left PleurX or even from a tunneled catheter for drainage at home. We will see how he progresses. From a respiratory standpoint he is relatively asymptomatic, which is interesting, given the large effusion. We will continue to follow but no immediate plans for surgical intervention. cc: Andie Angel MD
[2019-06-25] MEDS: DILAUDID IV PRN ×2 (16:51→20:16)
[2019-06-25] MEDS ORDERED: BENADRYL PO PRN (17:53)
[2019-06-25] MEDS: ZOSYN 4.5 GM in NS 100 ML IV SCH (18:08)
[2019-06-25] MEDS: ZOFRAN IV PRN (18:08)
[2019-06-25 18:09] LABS: BILIRUBIN URINE NEGATIVE (NEGATIVE); BLOOD URINE MODERATE (NEGATIVE); CLARITY CLEAR (CLEAR); COLOR YELLOW; GLUCOSE URINE NEGATIVE (NEGATIVE); KETONE URINE TRACE mg/dL (NEGATIVE); LEUKOCYTES URINE NEGATIVE (NEGATIVE); NITRITE URINE POSITIVE (NEGATIVE); PROTEIN URINE NEGATIVE (NEGATIVE); UROBILINOGEN URINE 0.2 EU/dL (0.2-1.0)
[2019-06-25 18:10] LABS: URINE BACTERIA 4+ /HFP; URINE RBC <10 /HPF (<10); URINE WBC <10 /HPF (<10)
[2019-06-25 18:11] LABS: URINE EPITHELIAL CELLS <10 /HPF (<10)
[2019-06-25] MEDS ORDERED: ATIVAN PO PRN (19:00)
[2019-06-25] MEDS: PHENERGAN IV PRN (19:09)
[2019-06-25] MEDS: LASIX IV SCH (20:16)
[2019-06-25 21:28] LABS: HEMATOCRIT 30.5 % (42.0-52.0)
--- NOTE | 2019-06-26 00:04 | PULMONOLOGY CONSULTATION ---
DATE: 06/25/2019 REQUESTING CLINICIAN: JO Wilcox. REASON FOR CONSULTATION: Pleural effusion. HISTORY OF PRESENT ILLNESS: Mr. 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 He was by definition inoperable at the time of diagnosis. He has been followed and treated by Dr. Elise Barboza and is receiving palliative therapy. CT scan of the abdomen and pelvis in January revealed ascites with significant nodularity of the omentum consistent with metastasis. He received his last chemotherapy last Sunday. He presented to the emergency room this morning with emesis and increasing shortness of breath. CT scan of the abdomen and pelvis was performed, which revealed a large left-sided pleural effusion and significant increase in ascites. The patient now has dyspnea with any exertion. CT scan also was worrisome for obstruction versus ileus. PAST MEDICAL HISTORY: 1. Gastric cancer. 2. Drug-induced seizures. 3. Nephrolithiasis. 4. Anxiety. 5. History of cholecystectomy. 6. Status post Port-A-Cath placement. SOCIAL HISTORY: Ongoing tobacco use. No alcohol use. REVIEW OF SYSTEMS: Notable for shortness of breath, nausea, vomiting, fatigue. PHYSICAL EXAMINATION: General: Reveals a frail and pale, chronically ill-appearing male, who is sitting in his bed. He is not have distress at rest. Vital signs: Blood pressure 112/74, heart rate 120, respiratory rate 19, oxygen saturation 94% on 2 L per nasal cannula. HEENT: Pupils are equal. Oropharynx appears clear. Neck: Supple. Chest: Reveals markedly diminished breath sounds at the left base. Cardiac: S1, S2 with increased rate. Abdomen: Soft with positive fluid wave. Extremities: Reveal 1+ peripheral edema. LABORATORIES: Arterial blood gas reveals a pH 7.57, pCO2 of 48, pO2 of 52. White blood count 3.11, hemoglobin 4.8, platelet count 16,000. IMPRESSION: A 34-year-old with 1. Acute hypoxemic respiratory failure. 2. Large left-sided pleural effusion. 3. Leukopenia. 4. Severe anemia. 5. Thrombocytopenia. 6. Metastatic gastric carcinoma. DISCUSSION: A 34-year-old with problems outlined above. As mentioned in Dr. Angel's note, I do believe he would benefit from a PleurX catheter. I would recommend this be placed in the left hemithorax and I suspect that he does translocate fluid from the abdomen into the left chest; therefore, placing it in the left chest would allow drainage of both compartments. This is palliative in nature and his prognosis is extremely poor. PLAN: 1. Agree with blood, as you have done. 2. Agree with consideration of PleurX catheter. cc: Dorian Bonilla MD
[2019-06-26] MEDS: ZOSYN 4.5 GM in NS 100 ML IV SCH ×4 (00:58→20:25)
[2019-06-26] MEDS: VANCOMYCIN 2,000 MG in NS 500 ML IV SCH ×2 (04:00→15:36)
[2019-06-26] MEDS: PHENERGAN IV PRN ×5 (05:49→18:07)
[2019-06-26] MEDS: DILAUDID IV PRN ×6 (05:50→21:41)
[2019-06-26 06:36] LABS: BASO# 0.01 X1000 (0.0-0.2); BASO% 0.2 % (0.0-0.8); EOS# 0.03 X1000 (0.0-0.7); EOS% 0.6 % (0.0-10.0); HEMATOCRIT 28.5 % (42.0-52.0); LYMPH# 0.79 X1000 (1.2-3.4); LYMPH% 14.8 % (20.5-51.1); MCH 31.9 PG (27-31); MCHC 31.6 g/dL (33-37); MCV 101.1 FL (81-99); MONO# 2.93 X1000 (0.11-0.59); MONO% 55.1 % (1.7-9.3); MPV 10.1 FL (7.4-10.4); NEUT# 1.56 X1000 (1.4-6.5); NEUT% 29.3 % (42.2-75.2); RBC 2.82 XMIL (4.7-6.1); WBC 5.32 X1000 (4.8-10.8)
[2019-06-26 06:37] LABS: PLT 31 X1000 (130-400)
[2019-06-26 06:55] LABS: AGAP 13; BUN 11 mg/dL (8-22); CALCIUM 8.1 mg/dL (8.8-10.2); CHLORIDE 89 mmol/L (98-107); COSMO 277; CREATININE 0.6 mg/dL (0.7-1.2); ESTIMATED GFR > 60; GLUCOSE 96 mg/dL (70-104); POTASSIUM 2.8 mmol/L (3.5-5.1); SODIUM 139 mmol/L (136-145); TCO2 37 mmol/L (25-35)
[2019-06-26] MEDS ORDERED: MAGNESIUM SULFATE 2 GM/S.W.I. 2 GM/50 ML IVPB IV ONE (08:24)
--- NOTE | 2019-06-26 08:54 | Diag Imaging Result Doc PS360 ---
EXAM: CT HEAD W/O CONTRAST HISTORY: Small petichial bleed TECHNIQUE: CT head without contrast. COMPARISON: 06/25/2019 FINDINGS: No change in the tiny right frontoparietal parenchymal hemorrhage measuring approximately 5 mm.. No epidural or subdural hematoma. No subarachnoid hemorrhage. No mass identified on this noncontrasted exam. No hydrocephalus. No sinus opacification. IMPRESSION: No change in the tiny parenchymal hemorrhage. This exam was performed using automated exposure control, adjustment of mA or kV according to patient size, and/or use of iterative reconstruction technique. Electronically signed by Tone Preciado 06/26/2019 8:51 AM
[2019-06-26] MEDS ORDERED: KLOR-CON PO ONE (09:00)
[2019-06-26] MEDS ORDERED: GRANIX SUBQ SCH (09:00)
[2019-06-26] MEDS ORDERED: POTASSIUM CHLORIDE 40 MEQ/SWI 40 MEQ/100 ML IVPB IV ONE (09:00)
[2019-06-26] MEDS: LASIX IV SCH (09:05)
[2019-06-26] MEDS: SODIUM CHLORIDE 0.9% INJ PRN ×3 (09:50→18:07)
[2019-06-26] MEDS: ATIVAN IV PRN (09:51)
--- NOTE | 2019-06-26 12:34 | GENERAL SURGERY PROGRESS NOTE ---
DATE: 06/26/2019 SUBJECTIVE: No further nausea or vomiting. Remains distended. Some abdominal discomfort. OBJECTIVE: Vital Signs: Tachycardic in one teens. No fevers. Blood pressure 120/88. Oxygen saturations low 90s on nasal cannula, high 80s on room air. General: He is alert. Abdomen: His abdomen is protuberant, fluid wave. Nontender. LABORATORY DATA: White count 5, hematocrit 28, platelets are up to 31. Creatinine 0.6, potassium is low 2.8, magnesium remains low at 1. ASSESSMENT AND PLAN: A 34-year-old gentleman with tense intraabdominal ascites, left effusion related to metastatic gastric cancer. I would recommend proceeding with paracentesis via our radiologist, as well as aggressive electrolyte repletion. We will keep him nothing by mouth until these issues are resolved and suspect that this is not a true obstruction but more secondary to these other issues, but we will monitor him. cc: Andie Angel MD
--- NOTE | 2019-06-26 15:03 | PROGRESS NOTE ---
DATE: 06/26/2019 SUBJECTIVE: Patient has no major complaints. OBJECTIVE: Vital Signs: Blood pressure 126/91, heart rate of 120, respiratory rate 17, temperature 98.2 degrees, satting 97% on room air. Cardiovascular: Regular rate and rhythm. Pulmonary: Bilateral breath sounds. Clear to auscultation. GI: Soft, nontender, nondistended. Bowel sounds are positive. LABORATORY DATA: White count 5, hemoglobin and hematocrit 9 and 28, platelets up to 31--that is after 2 units of platelets and 2 units of blood. White count is up to 5000 with 29% segs translating to an ANC of about I think 1200 or 1300, so out of the neutropenic range. Potassium is 2.8; Mag was 1. PROBLEM LIST: 1. Large pleural effusion, most likely is malignant. We are going to pursue thoracentesis versus PleurX. I think it is going to be malignant and recurrent; probably just go ahead and do a pleurodesis, but PleurX. Will try to get his platelet count up to where it needs to be for surgery to consider that. 2. Ascites. We are going to do a large volume paracentesis. Radiology is going to pursue that today. His platelet count is up to 30,000. I am going to give him another dose of platelets because I think it probably should be somewhere in the 50 to 100,000 range for PleurX or something to that effect. 3. Hypokalemia. We will also supplement and follow. 4. Metastatic cancer. It is felt to be a gastrointestinal malignancy. Heme-Onc has been consulted. I am waiting on their recommendations, although I agree his prognosis is fairly poor. 5. Right frontal lobe hemorrhage. It seems to be stable, likely associated with his thrombocytopenia, but he is completely asymptomatic. No disorientation. No headache. There is no fluid shift, but again I think I am going to try to push his platelet count a little higher, since he has that specifically, and again at the recommendations of Heme-Onc. DISPOSITION: 1. Pending improvement in his multiple issues. 2. Neutropenia. He seems to be doing better. His numbers look a bit better, so we will continue to follow those closely. cc: Solitario Huntley MD
[2019-06-26] MEDS: ZOFRAN IV PRN (15:35)
--- NOTE | 2019-06-26 15:35 | Diag Imaging Result Doc PS360 ---
US ABD PARACENTESIS W S/I - 06/26/2019 INDICATION: malignant ascites COMPARISON: None FINDINGS: The risks and benefits of the procedure were discussed with the patient. All questions were answered. Written and verbal consent was obtained. Ultrasound scanning demonstrated ascites. Overlying skin was prepped and draped in sterile fashion. Anesthesia was achieved with injection of 10 cc 1% lidocaine. The paracentesis catheter was advanced until the return of ascites fluid. 8.9 L was aspirated. The catheter was withdrawn intact. The patient reported no symptoms from the procedure. IMPRESSION: Successful and uncomplicated ultrasound-guided paracentesis. Electronically signed by Coy Nguyen 06/26/2019 3:32 PM
[2019-06-26] MEDS ORDERED: NS 500 ML ONE (16:10)
[2019-06-26] MEDS ORDERED: ALBUMIN 25% IV ONE (16:13)
[2019-06-26 16:24] LABS: ALBUMIN BODY FLUID 2.6 g/dL; AMYLASE BODY FLUID 14 U/L; TOTAL PROT BODY FLUID 5.1 g/dL
[2019-06-26 16:35] LABS: AGAP 11; ALB/GLOB RATIO 0.7; ALBUMIN 2.5 g/dL (3.5-5.0); ALKALINE PHOSPHATASE 86 U/L (32-122); BUN 13 mg/dL (8-22); CALCIUM 8.2 mg/dL (8.8-10.2); CHLORIDE 92 mmol/L (98-107); COSMO 280; CREATININE 0.9 mg/dL (0.7-1.2); ESTIMATED GFR > 60; GLUCOSE 77 mg/dL (70-104); GOT 14 U/L (10-34); GPT 13 U/L (10-44); POTASSIUM 3.2 mmol/L (3.5-5.1); SODIUM 141 mmol/L (136-145); TCO2 38 mmol/L (25-35); TOTAL BILIRUBIN 0.88 mg/dL (0.20-1.00)
--- NOTE | 2019-06-26 17:11 | HEMO/ONC CONSULTATION ---
DATE: 06/26/2019 CONSULTATION REQUESTED BY: Hospitalist service. REASON FOR CONSULTATION: Metastatic gastric cancer, patient known. HISTORY OF PRESENT ILLNESS: Mr. Huitron is an unfortunate 34-year-old, who is known to us as we are currently treating him for carcinoma of unknown primary though suspected to have GI origin. He is currently receiving carboplatin and Taxol with his last dose being on 06/18/2019. That was cycle #9 for him. He actually was in the other day to get treatment and was due for a lab check today for interim labs. However, he presented to the [facility] with complaints of shortness of breath, lower abdominal pain, nausea and vomiting. He was found to have severe cytopenia with a hemoglobin of 4.8 and platelet count is 16,000. They did a workup, which also revealed 80 small petechial hemorrhage in his right frontal lobe of his brain. He has now been admitted for further evaluation and treatment. PAST MEDICAL HISTORY: 1. Positive for pancreatitis. 2. History of IV drug use. 3. GERD. 4. Kidney stones. 5. Obesity. 6. Carcinoma of unknown primary, metastatic suspected to be GI in nature, currently undergoing chemotherapy. PAST SURGICAL HISTORY: Positive for cholecystectomy and gynecomastia. FAMILY HISTORY: Positive for diabetes, alcoholism, colon cancer and heart issues. SOCIAL HISTORY: Patient is currently and they actually recently had a baby girl who is his 1st child. He currently smokes about 10 cigarettes per day. He has a prior history of IV drug use without but quit using all IV drugs about 5 years ago. He denies any illicit drug use currently. He also denies any prior alcohol abuse or any current alcohol use. REVIEW OF SYSTEMS: Twelve point review of systems completed, negative except as expressed in HPI. PHYSICAL EXAMINATION: Vital Signs: Temperature 99 degrees, heart rate 102, respirations 16, blood pressure 145/91, O2 saturation 97% on 5 L nasal cannula. General: This is a thin, male lying in his hospital bed in no acute distress. Head: Normocephalic, atraumatic. Eyes: Pupils equal, round, reactive. Ears, nose, throat, neck and mouth: Mucosa appears to be normal. Gross auditory acuity intact. Cardiovascular: S1, S2 heard. No murmurs, gallops, rubs appreciated. Respiratory: Chest is essentially clear. Abdomen: Distended with ascites. There is some mild diffuse tenderness but no rebound or guarding. Musculoskeletal: Muscular, no obvious bony abnormalities. Extremities: He does have some trace bilateral pretibial edema. Neurologic: Patient is alert and oriented with no focal deficits noted at this time. LABS AND STUDIES: White blood cells 3.11, hemoglobin 4.8; he is getting blood, platelet count 16,000, and he is getting platelets, neutrophil count is 280. Magnesium is low at 1.0. ASSESSMENT AND PLAN: 1. Metastatic carcinoma of unknown primary with suspected gastric origin, currently undergoing chemotherapy with his most recent dose of Taxol and carboplatin on 06/18/2019. Treatment will be on hold while the patient is in the hospital. 2. Profound cytopenia believed to be secondary to his chemotherapy. He also has pneumonia and a possible bowel obstruction. Agree with transfusion support. We will also go ahead and initiate Granix to be given daily until his ANC returns to normal. 3. Pneumonia. Management per the primary team. 4. Malignant ascites. May consider therapeutic paracentesis during this hospitalization. 5. Possible partial small-bowel obstruction versus ileus. Management per the primary team. It looks like also General surgery has been consulted. 6. Small petechial hemorrhage to the right frontal lobe. They did contact Neurosurgery. The plan is for a repeat CT scan in the morning. Follow up on results. Thank you for consulting us on Mr. Huitron. We will continue to follow and adjust our treatment plan per his hospital course. Dictated by MICHAEL Castrejon for Elise Barboza MD cc: Elise Barboza MD The above note reflects my history, physical examination, assessment and plan. Elise BALES
[2019-06-26 17:26] LABS: BODY FLUID SOURCE PERITONEAL FLUID; MONOS 12 %; POLYS 88 %; WBC BF 464 /cumm
--- NOTE | 2019-06-26 22:42 | PULMONOLOGY PROGRESS NOTE ---
DATE: 06/26/2019 SUBJECTIVE: The patient was sleepy but arousable. His breathing has significantly improved. PHYSICAL EXAMINATION: Vital signs: Blood pressure 121/76, heart rate 103, respiratory rate 16, oxygen saturation 93% on 4 L. HEENT: Pupils are equal and reactive. Oropharynx appears clear. Neck: Supple. Chest: Decreased breath sounds in the left lung. Cardiac exam: S1, S2. Abdomen: Significantly softer than yesterday. Extremities: Reveal 1+ pretibial edema. LABORATORIES: CT scan of the head was repeated. Small petechial hemorrhages seen in the right frontal lobe have not changed. Peritoneal fluid reveals a total protein of 5, albumin 2.6, amylase 14. IMPRESSION: A 34-year-old with: 1. Acute hypoxemic respiratory failure. 2. Large left-sided pleural effusion. 3. Massive ascites status, status post large volume paracentesis. 4. Leukopenia. 5. Severe anemia. 6. Metastatic adenocarcinoma of unknown primary. 7. Thrombocytopenia. PLAN: Follow up with chest x-ray tomorrow. cc: Dorian Bonilla MD
[2019-06-27] MEDS: DILAUDID IV PRN ×7 (01:04→21:44)
[2019-06-27] MEDS: ZOSYN 4.5 GM in NS 100 ML IV SCH ×4 (01:04→20:38)
[2019-06-27] MEDS: PHENERGAN IV PRN ×6 (01:05→20:38)
[2019-06-27] MEDS: ATIVAN IV PRN ×2 (03:59→13:43)
[2019-06-27] MEDS: VANCOMYCIN 2,000 MG in NS 500 ML IV SCH (04:52)
--- NOTE | 2019-06-27 06:25 | Diag Imaging Result Doc PS360 ---
EXAM: CHEST-PORTABLE HISTORY: abnormal exam TECHNIQUE: Single view COMPARISON: 06/25/2019 FINDINGS: There is a large left pleural effusion and there is atelectasis to the left lung. There may be underlying lung infiltrates. No change in the right jugular portacatheter. No cardiomegaly. IMPRESSION: Large left pleural effusion Electronically signed by Tone Preciado 06/27/2019 6:23 AM
[2019-06-27 06:37] LABS: BASO# 0.02 X1000 (0.0-0.2); BASO% 0.2 % (0.0-0.8); EOS# 0.02 X1000 (0.0-0.7); EOS% 0.2 % (0.0-10.0); HEMATOCRIT 25.3 % (42.0-52.0); HEMOGLOBIN 7.8 g/dL (14.0-18.0); IMM GRAN# 0.09 X1000 (0.0-0.04); IMM GRAN% 0.9 % (0.0-0.5); LYMPH# 1.04 X1000 (1.2-3.4); LYMPH% 10.5 % (20.5-51.1); MCH 32.1 PG (27-31); MCHC 30.8 g/dL (33-37); MCV 104.1 FL (81-99); MONO# 2.86 X1000 (0.11-0.59); MONO% 28.9 % (1.7-9.3); MPV 10.5 FL (7.4-10.4); NEUT# 5.87 X1000 (1.4-6.5); NEUT% 59.3 % (42.2-75.2); PLT 41 X1000 (130-400); RBC 2.43 XMIL (4.7-6.1); RDW 24.1 % (11.5-14.5)
[2019-06-27] MEDS: LASIX IV SCH (08:19)
--- NOTE | 2019-06-27 11:28 | Diag Imaging Result Doc PS360 ---
EXAM: CHEST-2 VIEWS INDICATION: POST U/S LEFT THORACENTESIS TECHNIQUE: 2 views COMPARISON: 06/27/2019 FINDINGS: There has been a significant decrease in size of the left pleural fluid collection status post thoracentesis. However, there is still even after aspirating 1500 mL. There is no evidence of pneumothorax status post left thoracentesis. The chest is stable, otherwise. IMPRESSION: No evidence of pneumothorax status post left thoracentesis. Electronically signed by Robi Graham 06/27/2019 11:25 AM
--- NOTE | 2019-06-27 12:46 | GENERAL SURGERY PROGRESS NOTE ---
DATE: 06/27/2019 SUBJECTIVE: Feels better. Still having some nausea. No bowel movement. No fevers. OBJECTIVE: Vital signs: Pulse 94, blood pressure 106/73. General: He is alert. Cardiovascular: Regular rate. Abdomen: Soft, much less distended, nontender. LABORATORY DATA: White count 9, hematocrit is 25, platelets are up to 51,000. ASSESSMENT AND PLAN: A 34-year-old gentleman with tense ascites. Paracentesis relieved 8-1/2 L. He also had electrolyte derangements, pancytopenia and suspect that his nausea is multifactorial related to ascites, malignant metastatic gastric cancer and pancytopenia, as well as electrolyte abnormalities. Would work to correct these issues but no plans for surgical intervention. cc: Andie Angel MD
--- NOTE | 2019-06-27 12:48 | HEMO/ONC PROGRESS NOTE ---
DATE: 06/27/2019 CHIEF COMPLAINT: "Am I dying?" HISTORY OF PRESENT ILLNESS: Mr. Huitron is seen in hospital followup for admission for neutropenic fever as well as pancytopenia. He just returned from his ultrasound-guided thoracentesis. His pain is improved. His nausea is improved. He denies any current shortness of breath, but overall feels weak. REVIEW OF SYSTEMS: Negative except as per HPI. OBJECTIVE: Vital Signs: Temperature 97.7 degrees, pulse 94, respiratory rate 18, blood pressure 106/73, O2 saturation 100% on 2 L via nasal cannula. General: This is a chronically ill- appearing, cachectic man in no acute distress. He is unaccompanied at the bedside at the time of consultation. Eyes: Sclerae anicteric. Conjunctiva pale. Cardiovascular: Regular rate and rhythm. Normal S1, S2. No murmurs, rubs, or gallops. Rest of the examination notable for pallor and moderate abdominal distention. The patient is alert and oriented. LABS: White count 9.9, hemoglobin 7.8, platelet count 41,000. ANC is 5170. Chest x-ray post left thoracentesis shows decreased left pleural fluid collection, although there is still some present even after aspiration of 1.5 L. No evidence of pneumothorax. Repeat head CT was stable yesterday. ASSESSMENT AND PLAN: 1. Carcinoma of unknown primary: He is status post carboplatin and Taxol therapy last week. His cytopenias are slowly improving. We discussed goals of care. Palliative Care consult has been placed. Continue to monitor. 2. Neutropenia: Resolved. Neutropenic precautions can be discontinued. His Granix has been discontinued. Monitor daily labs for now. 3. PLANNER/SCHEDULER hemorrhage: Stabilize. Continue to maintain platelet count above 50,000 as able. Continue transfusions or as needed. 4. Pleural effusion: Status post thoracentesis. Continue to monitor. cc: Elise Barboza MD
--- NOTE | 2019-06-27 12:50 | Diag Imaging Result Doc PS360 ---
EXAM: US THORACENTESIS W/IMAGE GUIDE INDICATION: pleural effusion TECHNIQUE: COMPARISON: None. FINDINGS: Risks, benefits, and alternatives were discussed with the patient and informed consent was obtained. The patient was prepped and draped in sterile fashion and local anesthesia was achieved with 1% lidocaine solution. Using ultrasound guidance, a large bore catheter was inserted into the left pleural space and 1500 mL of dark red opaque fluid was aspirated. There were no known complications. A postprocedural radiograph showed no pneumothorax. IMPRESSION: Technically successful ultrasound-guided left thoracentesis. Electronically signed by Robi Graham 06/27/2019 12:48 PM
--- NOTE | 2019-06-27 14:54 | PROGRESS NOTE ---
DATE: 06/27/2019 SUBJECTIVE: Patient has no major complaints. OBJECTIVE: Vital signs: Blood pressure is 106/73, heart rate 94, respiratory rate 18, temperature 97.7 degrees, 100% on 4 L. Cardiovascular: Regular rate and rhythm. Pulmonary: Bilateral breath sounds clear to auscultation. Gastrointestinal: Soft, nontender, nondistended. Bowel sounds are positive. LABORATORY DATA: White count is 9.9, hemoglobin and hematocrit 7 and 25, platelets of 41,000. PROBLEM LIST: 1. Large pleural effusion. We went ahead and did a thoracentesis today. I guess at some point he may get a PleurX, but I guess we will tap it. If it re-accumulates, then we will consider a PleurX. I am sure it is most likely malignant, but studies are pending. 2. Possible spontaneous bacterial peritonitis. The cell count is high at 464 but 88% is segs, so his PMN count is 408, which is above 250, which is consistent with spontaneous bacterial peritonitis, so we will continue antibiotics. Disposition pending clinical status. 3. Metastatic cancer of unknown primary - aware poor progmosis; but will continue to follow. Neutropenia has essentially resolved because of coronavirus, so I am going to continue that. 4. Small petechial hemorrhage likely from spontaneous from thrombocytopenia. I am going to go ahead and give him another dose of platelets because he has only a 40,000. He had instrumentation today's. His hemoglobin and hematocrit did drop again and we will continue to monitor. cc: Solitario Huntley MD [facility]ITAL[facility]uf[facility]
[2019-06-27 15:11] LABS: AMYLASE BODY FLUID 18 U/L; GLUCOSE BODY FLUID 55 mg/dL; LDH BODY FLUID 579 U/L; TOTAL PROT BODY FLUID 4.3 g/dL
[2019-06-27 16:21] LABS: BODY FLUID SOURCE PLEURAL FLUID; SPECIMEN PLEURAL FLUID; WBC BF 1474 /cumm
[2019-06-27 16:25] LABS: MONOS 71 %; POLYS 29 %
--- NOTE | 2019-06-27 17:52 | PULMONOLOGY PROGRESS NOTE ---
DATE: 06/27/2019 SUBJECTIVE: Patient is lying in the bed in with no complaints. OBJECTIVE: Vital Signs: Blood pressure is 119/75 with a heart rate of 94, respirations are 18, temperature is 97.7 degrees with O2 saturations 96 to 100 percent on 4 L nasal cannula. HEENT: Head is normocephalic, atraumatic. Mucous membranes are moist. Pupils are equal, round, react to light. Neck: Supple with trachea midline. Cardiovascular: Regular rate and rhythm. S1 and S2 are appreciated. Pulmonary: Breath sounds are clear with no increased work of breathing noted. Chest rise fall symmetric with respiration. Gastrointestinal: Abdomen is soft, nontender, nondistended with bowel sounds in all 4 quadrants. LABS: WBC is 9.9 with hemoglobin 7.8, hematocrit 25.3 and platelets of 41,000. IMPRESSION: A 34-year-old with 1. Acute hypoxemic respiratory failure. 2. Left-sided pleural effusion. 3. Massive ascites status post large volume paracentesis. 4. Leukopenia. 5. Severe anemia. 6. Thrombocytopenia. 7. Metastatic adenocarcinoma of unknown primary. PLAN: 1. We will continue with his current antibiotics. 2. Continue IV diuresis. 3. Agree with blood as has been ordered. Dictated by JO Andrews for Dorian Bonilla MD cc: JO Andrews MD
[2019-06-27] MEDS: BENADRYL IV PRN (20:38)
[2019-06-27] MEDS ORDERED: NS 500 ML IV ONE (22:00)
[2019-06-27] MEDS ORDERED: NS 500 ML ONE (22:14)
[2019-06-28] MEDS: PHENERGAN IV PRN ×6 (00:18→22:11)
[2019-06-28] MEDS: ZOSYN 4.5 GM in NS 100 ML IV SCH ×4 (02:22→20:14)
[2019-06-28] MEDS: DILAUDID IV PRN ×7 (02:22→21:44)
--- NOTE | 2019-06-28 07:12 | GENERAL SURGERY PROGRESS NOTE ---
DATE: 06/28/2019 SUBJECTIVE: Patient seems to be doing okay. He got 8.5 L off of the abdomen, and over 1500 out from his left chest from a thoracentesis. He seems to be doing okay after both of those procedures. He did have a large bowel movement this morning. OBJECTIVE: Vital Signs: Patient is currently afebrile. His vital signs are stable. General exam: No acute distress. Ill-appearing male, looks stated age. HEENT: Normocephalic, atraumatic. Pupils equal, round, reactive to light. Mucous membranes moist. Oropharynx benign. Neck: Supple. Trachea midline. Cardiovascular: Regular rate and rhythm. Lungs: Grossly clear. Abdomen: Soft, nontender. Extremities: Moves all extremities. Neurologic: Grossly intact. Skin: No signs of jaundice. Vascular: All extremities perfused. LABORATORY: None this morning as of yet, but reviewed his labs from previous. ASSESSMENT/PLAN: A 34-year-old gentleman with a bowel obstruction likely secondary to tense ascites that is malignant. 1. Bowel obstruction. At this time, I think it has probably resolved since he has gotten a pretty significant paracentesis off. He may continue to have further issues with ascites and may need some degree of palliative drainage procedure, but we will let Dr. Angel discuss with him once he is back. Otherwise, we will continue current treatment. cc: Tristian Neves MD
[2019-06-28 07:53] LABS: BASO# 0.03 X1000 (0.0-0.2); BASO% 0.3 % (0.0-0.8); EOS# 0.06 X1000 (0.0-0.7); EOS% 0.5 % (0.0-10.0); HEMATOCRIT 27.2 % (42.0-52.0); HEMOGLOBIN 8.2 g/dL (14.0-18.0); IMM GRAN# 0.24 X1000 (0.0-0.04); LYMPH# 0.86 X1000 (1.2-3.4); LYMPH% 7.3 % (20.5-51.1); MCH 31.7 PG (27-31); MCHC 30.1 g/dL (33-37); MONO# 2.29 X1000 (0.11-0.59); MONO% 19.5 % (1.7-9.3); MPV 9.6 FL (7.4-10.4); NEUT# 8.26 X1000 (1.4-6.5); NEUT% 70.4 % (42.2-75.2); PLT 75 X1000 (130-400); RBC 2.59 XMIL (4.7-6.1); RDW 22.4 % (11.5-14.5); WBC 11.74 X1000 (4.8-10.8)
[2019-06-28 08:01] LABS: CALCIUM 7.7 mg/dL (8.8-10.2); CREATININE 1.7 mg/dL (0.7-1.2); MAGNESIUM 1.2 mg/dL (1.5-2.7); PHOSPHORUS 3.4 mg/dL (2.7-4.5); POTASSIUM 2.8 mmol/L (3.5-5.1)
[2019-06-28 08:16] LABS: ANISOCYTOSIS 1+; BANDS 22 % (0-1); HYPOCHROM 1+; LYMPHS 4 % (21-51); MONO 14 % (1-9); SEGS 60 % (42-75)
[2019-06-28] MEDS: LASIX IV SCH (09:51)
[2019-06-28] MEDS: ATIVAN IV PRN (10:03)
--- NOTE | 2019-06-28 13:45 | PULMONOLOGY PROGRESS NOTE ---
DATE: 06/28/2019 SUBJECTIVE: Mr. Huitron reports doing better today. He feels better after having thoracentesis and paracentesis. OBJECTIVE: Vital signs: Blood pressure is 102/59 with a heart rate of 100, respirations 17, temperature 97.6 degrees with O2 saturations 100% on 3 L nasal cannula. HEENT: Head is normocephalic, atraumatic. Mucous membranes are moist. Eyes: Pupils equal, round, react to light. Sclerae are anicteric. Neck: Supple with trachea midline. Cardiovascular: Regular rate and rhythm. S1 and S2 are appreciated. Pulmonary: Breath sounds are clear. No increased work of breathing noted. Chest rises falls symmetric respiration. Gastrointestinal: Abdomen is soft, nontender, nondistended, with bowel sounds in all 4 quadrants. LABORATORY: WBC is 11.7 with hemoglobin 8.2, hematocrit 27.2, and platelets of 75,000. Sodium 141, potassium 2.8, BUN 14, creatinine 1.7 with a glucose of 89. IMPRESSION: A 34-year-old with: 1. Acute hypoxemic respiratory failure. 2. Left-sided pleural effusion status post thoracentesis with 1500 mL drained per Radiology. 3. Massive ascites status post large volume paracentesis of 8.9 L on 06/26/2019. 4. Leukopenia. 5. Severe anemia. 6. Thrombocytopenia status post platelet infusions. 7. Metastatic adenocarcinoma of unknown primary. PLAN: 1. Continue with current antibiotic regimen. 2. Continue with IV diuresis. 3. Chest x-ray in a.m. 4. Bronchial hygiene Dictated by JO Andrews for Dorian Bonilla MD cc: JO Andrews MD [facility]
[2019-06-28] MEDS ORDERED: KLOR-CON PO ONE (15:12)
[2019-06-28] MEDS ORDERED: MAGNESIUM SULFATE 2 GM/S.W.I. 2 GM/50 ML IVPB IV ONE (15:12)
[2019-06-28] MEDS: NS 1,000 ML IV SCH (16:16)
[2019-06-29] MEDS: NS 1,000 ML IV SCH ×4 (02:23→23:39)
[2019-06-29] MEDS: DILAUDID IV PRN ×7 (02:23→23:39)
[2019-06-29] MEDS: ZOSYN 4.5 GM in NS 100 ML IV SCH ×4 (02:23→21:17)
[2019-06-29] MEDS: PHENERGAN IV PRN ×3 (02:24→19:46)
[2019-06-29] MEDS: ATIVAN IV PRN ×5 (06:37→23:39)
[2019-06-29 07:01] LABS: BASO# 0.03 X1000 (0.0-0.2); BASO% 0.5 % (0.0-0.8); EOS# 0.03 X1000 (0.0-0.7); EOS% 0.5 % (0.0-10.0); HEMATOCRIT 26.3 % (42.0-52.0); IMM GRAN# 0.06 X1000 (0.0-0.04); IMM GRAN% 0.9 % (0.0-0.5); LYMPH# 0.89 X1000 (1.2-3.4); LYMPH% 13.8 % (20.5-51.1); MCH 31.9 PG (27-31); MCHC 30.4 g/dL (33-37); MCV 104.8 FL (81-99); MONO# 1.45 X1000 (0.11-0.59); MONO% 22.4 % (1.7-9.3); MPV 10.3 FL (7.4-10.4); NEUT% 61.9 % (42.2-75.2); PLT 56 X1000 (130-400); RBC 2.51 XMIL (4.7-6.1); RDW 21.6 % (11.5-14.5); WBC 6.46 X1000 (4.8-10.8)
--- NOTE | 2019-06-29 07:10 | GENERAL SURGERY PROGRESS NOTE ---
DATE: 06/29/2019 SUBJECTIVE: The patient says he is feeling a little bit better. Otherwise, doing about the same. OBJECTIVE: Vital Signs: The patient is currently afebrile. His vital signs are stable. General Examination: No acute distress. Cardiovascular: Some mild tachycardia. Lungs: Grossly clear. Abdomen: Soft, nontender. Laboratory: Pending for this morning but his white count yesterday did go up slightly to 11. ASSESSMENT/PLAN: A 34-year-old gentleman with bowel obstructions secondary to tense ascites. Bowel obstruction. At this time, I think it is improving. He has had bowel movements. He seems to be tolerating his regular diet. We will continue to monitor him. cc: Tristian Neves MD
[2019-06-29 07:16] LABS: BANDS 6 % (0-1); LYMPHS 11 % (21-51); MONO 18 % (1-9); NRBC 1 % (0-0); SEGS 65 % (42-75)
[2019-06-29 07:17] LABS: ANISOCYTOSIS 2+
--- NOTE | 2019-06-29 08:48 | Diag Imaging Result Doc PS360 ---
EXAM: CHEST-PORTABLE INDICATION: dyspnea TECHNIQUE: One view COMPARISON: 06/27/2019 FINDINGS: There is a stable right chest port. Stable moderate-sized left pleural fluid collection with adjacent left basilar atelectasis. No new consolidation is identified. Cardiac silhouette is stable. IMPRESSION: Stable chest. Electronically signed by Robi Graham 06/29/2019 8:45 AM
[2019-06-29] MEDS: ZOFRAN IV PRN ×3 (11:51→23:39)
[2019-06-29] MEDS ORDERED: NS 500 ML IV ONE (17:16)
--- NOTE | 2019-06-29 17:47 | PULMONOLOGY PROGRESS NOTE ---
DATE: 06/29/2019 SUBJECTIVE: Mr. Huitron reports feeling about the same today. He does state that his breathing has improved a little. OBJECTIVE: Vital Signs: Blood pressure is 122/74, with a heart rate of 101, respirations are 16, temperature is 99.2 degrees oral, with O2 saturations 93-95% on 3 L nasal cannula. Cardiovascular: Regular rate and rhythm. S1 and S2 are appreciated. No murmur. Pulmonary: Breath sounds are diminished throughout. No increased work of breathing noted. Chest rises and falls symmetrically with respirations. Gastrointestinal: Abdomen is soft, nontender, nondistended, with bowel sounds in all 4 quadrants. Neurologic: He is alert and oriented x3. Labs: WBC is 6.4, with hemoglobin 8, hematocrit 26.3, and platelets of 56,000. Chest x-ray revealed a stable right chest port with a small to moderate size left pleural fluid collection. No new consolidation. IMPRESSION: This is a 34-year-old with: 1. Acute hypoxemic respiratory failure. 2. Left-sided pleural effusion, status post thoracentesis with 1500 mL drained per radiology. 3. Massive ascites, status post large volume paracentesis of 8.9 L on 06/26/2019. 4. Leukopenia. 5. Thrombocytopenia, status post platelet infusions. 6. Metastatic adenocarcinoma of unknown primary. PLAN: 1. We will continue with his current antibiotic regimen. 2. Continue IV diuresis. 3. Bronchial hygeine Dictated by JO Andrews for Dorian Bonilla MD cc: JO Andrews MD [facility]
[2019-06-29 18:00] LABS: CALCIUM 7.2 mg/dL (8.8-10.2); CREATININE 1.6 mg/dL (0.7-1.2)
[2019-06-29] MEDS ORDERED: KLOR-CON PO ONE (18:42)
[2019-06-29 19:48] LABS: POTASSIUM 2.5 mmol/L (3.5-5.1)
[2019-06-29] MEDS: POTASSIUM CHLORIDE 20 MEQ/SWI 20 MEQ/100 ML IVPB IV SCH ×2 (19:48→21:17)
[2019-06-30] MEDS: ZOSYN 4.5 GM in NS 100 ML IV SCH ×3 (02:29→14:25)
[2019-06-30] MEDS: ATIVAN IV PRN ×3 (03:53→23:01)
[2019-06-30] MEDS: DILAUDID IV PRN ×6 (03:53→22:50)
[2019-06-30] MEDS: PHENERGAN IV PRN ×4 (03:53→22:50)
--- NOTE | 2019-06-30 04:11 | PROGRESS NOTE ---
DATE: 06/29/2019 SUBJECTIVE: The patient has no major complaints. OBJECTIVE: Blood pressure is 105/71, heart rate of 112, respiratory rate of 16, temperature 99.6 degrees, afebrile. Cardiovascular: Regular rate and rhythm. Pulmonary: Bilateral breath sounds clear to auscultation. White count 6, hemoglobin and hematocrit 8 and 26, platelets of 56,000. Basic is pending. PROBLEM LIST: 1. Pleural effusion. He had a thoracentesis. They took off about a liter and a half but it looks like it is reaccumulating. Presumably, it is malignant. I do not have the pathology back. It is better than it was after initially. I do not know if we are going to go ahead and just entertain a PleurX catheter while he is here. I guess we are waiting. We will discuss with surgery about that. I will make him nothing per oral after midnight in case they want to do it. 2. Thrombocytopenia. We may need to get his platelet count up a little bit if we are planning instrumentation but I am going to hold off until there is something out now. I think we are probably going to have to go ahead and transfuse him because he has a small area of brain bleed, if I remember correctly. He is on Zosyn but it is sensitive to everything so we certainly could probably change him to Rocephin or something simple, or Keflex at discharge. 3. Acute kidney injury. We will need to get some treatment here and see how he does. 4. Intracranial hemorrhage, likely due to thrombocytopenia. I think their goal per standards, so we will see how he does. Anticipate discharge hopefully in the next 1 to 2 days. cc: Solitario Huntley MD
--- NOTE | 2019-06-30 06:55 | GENERAL SURGERY PROGRESS NOTE ---
DATE: 06/30/2019 SUBJECTIVE: Patient seems to be doing okay. He denies shortness of breath, but his chest x-ray yesterday showed reaccumulation of the fluid on the left chest, although it is relatively stable. OBJECTIVE: Vital Signs: Patient is currently afebrile. Vital signs stable. General: No acute distress. Cardiovascular: Regular rate and rhythm. Lungs: Some decreased breath sounds on the base on the left, but no increased labored breathing. Abdomen: Soft, nontender. ASSESSMENT AND PLAN: A 29-year-old gentleman with bowel obstruction secondary to ascites with left pleural effusion. 1. Bowel obstruction. At this time, I think it is essentially resolved. 2. Pleural effusion. At this time, he probably would benefit from a PleurX catheter, but I do not think logistically I can get it done today. Dr. Angel will be back tomorrow. We will make him nothing by mouth after midnight and have Dr. Angel reassess about possible PleurX catheter. cc: Tristian Neves MD
[2019-06-30 07:04] LABS: BASO# 0.02 X1000 (0.0-0.2); BASO% 0.3 % (0.0-0.8); EOS# 0.03 X1000 (0.0-0.7); EOS% 0.4 % (0.0-10.0); HEMATOCRIT 24.4 % (42.0-52.0); HEMOGLOBIN 7.4 g/dL (14.0-18.0); IMM GRAN# 0.07 X1000 (0.0-0.04); LYMPH# 1.01 X1000 (1.2-3.4); LYMPH% 13.9 % (20.5-51.1); MCH 31.6 PG (27-31); MCHC 30.3 g/dL (33-37); MCV 104.3 FL (81-99); MONO# 1.95 X1000 (0.11-0.59); MONO% 26.7 % (1.7-9.3); NEUT# 4.21 X1000 (1.4-6.5); NEUT% 57.7 % (42.2-75.2); PLT 43 X1000 (130-400); RBC 2.34 XMIL (4.7-6.1); WBC 7.29 X1000 (4.8-10.8)
[2019-06-30 07:06] LABS: CREATININE 1.4 mg/dL (0.7-1.2)
[2019-06-30 07:14] LABS: POTASSIUM 2.5 mmol/L (3.5-5.1)
[2019-06-30 07:15] LABS: CALCIUM 6.7 mg/dL (8.8-10.2)
[2019-06-30] MEDS ORDERED: KLOR-CON PO ONE (07:59)
[2019-06-30] MEDS ORDERED: CALCIUM GLUCONATE 1 GM in NS 50 ML IV ONE (08:01)
[2019-06-30] MEDS: NS 1,000 ML IV SCH ×2 (08:21→10:11)
[2019-06-30 08:26] LABS: BANDS 8 % (0-1); LYMPHS 14 % (21-51); MONO 19 % (1-9); SEGS 59 % (42-75)
[2019-06-30 08:27] LABS: ANISOCYTOSIS 2+
[2019-06-30] MEDS: POTASSIUM CHLORIDE 20 MEQ/SWI 20 MEQ/100 ML IVPB IV SCH ×2 (09:19→12:06)
[2019-06-30] MEDS: ZOFRAN IV PRN ×2 (14:26→19:33)
[2019-06-30] MEDS ORDERED: NS 500 ML IV ONE (14:51)
--- NOTE | 2019-06-30 15:11 | PROGRESS NOTE ---
DATE: 06/30/2019 SUBJECTIVE: The patient has no major complaints. OBJECTIVE: Blood pressure is 104/79, heart rate of 113, respiratory rate is 16, temperature-he is afebrile. Cardiovascular: Regular rate and rhythm. Pulmonary: Bilateral breath sounds diminished at the bases. GI: Soft, nontender, nondistended. Bowel sounds were positive. White count 7, hemoglobin and hematocrit have dropped again to 7 and 24, and platelets have dropped again to 43,000. Potassium is 2.5, calcium is 6.7. Pleural fluid looks more transudative but I do not have any pathology back yet. PROBLEM LIST: 1. Pleural effusion. It looks like he has some reaccumulation, although not completely. It looks like they are going to plan to do it tomorrow. I am going to go ahead and give him another dose of platelets because he is below 50,000 and in preparation for surgery too. 2. Pancytopenia, likely related to chemotherapy. We will continue to monitor. 3. Urine culture is positive for Klebsiella. He also has spontaneous bacterial peritonitis so he is on Zosyn. I think we can probably switch him to Rocephin and anticipate discharge on medications. 4. Hypokalemia. This is a persistent issue. I think it is related to the diarrhea he is having but we will continue to follow that. I am going to put some potassium in his fluids and we will see how he does. DISPOSITION: We are still kind of on the fence about where we are going with all that is happening but we will continue to monitor. Prognosis is poor, short-term, long-term. He is still a Full Code and everything from that perspective. cc: Solitario Huntley MD
[2019-06-30] MEDS: NS + KCL 40 MEQ 1,000 ML IV SCH (16:56)
--- NOTE | 2019-06-30 22:51 | PULMONOLOGY PROGRESS NOTE ---
DATE: 06/30/2019 SUBJECTIVE: The patient is awake and alert. Reports mild dyspnea, but he can lie flat without difficulty. OBJECTIVE: Vital Signs: Blood pressure 109/76, heart 116, respiratory rate 18, oxygen saturation 98% on 4 L per nasal canula. HEENT: Pupils are equal. Mild temporal wasting. Oropharynx appears clear. Neck: Supple. Chest: Reveals diminished breath sounds left base. Cardiac: S1 and S2. Abdomen: Soft without definite fluid wave. Extremities: Reveal 1+ peripheral edema. LABORATORIES: Pleural fluid from 06/27/2019 is reviewed. It is exudative with a high LDH and a high, total protein. Microbiology is pending. Cytology is pending. Chest x-ray repeated yesterday is without significant change. IMPRESSION: 1. A 34 year old with pleural effusion. 2. Marked ascites. 3. Transient small-bowel obstruction. 4. Hypoxemic respiratory failure. 1. Metastatic adenocarcinoma. PLAN: 1. Continue current antibiotic regimen. 2. Continue bronchial hygiene. 3. Agree with plans to consider PleurX catheter for chronic palliative management. cc: Dorian Bonilla MD
[2019-07-01] MEDS: ZOFRAN IV PRN ×5 (02:21→19:20)
[2019-07-01] MEDS: DILAUDID IV PRN ×5 (02:21→15:47)
[2019-07-01] MEDS: ATIVAN IV PRN ×3 (03:09→14:33)
[2019-07-01] MEDS: NS + KCL 40 MEQ 1,000 ML IV SCH ×2 (05:29→13:26)
[2019-07-01 06:24] LABS: BASO# 0.04 X1000 (0.0-0.2); BASO% 0.4 % (0.0-0.8); EOS# 0.01 X1000 (0.0-0.7); EOS% 0.1 % (0.0-10.0); HEMATOCRIT 22.8 % (42.0-52.0); HEMOGLOBIN 6.9 g/dL (14.0-18.0); IMM GRAN# 0.11 X1000 (0.0-0.04); IMM GRAN% 1.1 % (0.0-0.5); LYMPH# 1.81 X1000 (1.2-3.4); LYMPH% 18.6 % (20.5-51.1); MCH 31.8 PG (27-31); MCHC 30.3 g/dL (33-37); MCV 105.1 FL (81-99); MONO# 2.16 X1000 (0.11-0.59); MONO% 22.2 % (1.7-9.3); MPV 10.4 FL (7.4-10.4); NEUT# 5.62 X1000 (1.4-6.5); NEUT% 57.6 % (42.2-75.2); PLT 78 X1000 (130-400); RBC 2.17 XMIL (4.7-6.1); WBC 9.75 X1000 (4.8-10.8)
[2019-07-01 06:41] LABS: INR 1.1; PROTIME 14.3 Seconds (11.0-16.0)
[2019-07-01 06:42] LABS: PTT 39.9 Seconds (22.3-41.8)
[2019-07-01 07:15] LABS: AGAP 7; BUN 10 mg/dL (8-22); CHLORIDE 99 mmol/L (98-107); COSMO 281; CREATININE 1.1 mg/dL (0.7-1.2); ESTIMATED GFR > 60; GLUCOSE 86 mg/dL (70-104); SODIUM 142 mmol/L (136-145); TCO2 36 mmol/L (25-35)
[2019-07-01 07:39] LABS: CALCIUM 6.9 mg/dL (8.8-10.2)
[2019-07-01] MEDS: PHENERGAN IV PRN ×2 (08:54→15:48)
[2019-07-01] MEDS: SODIUM CHLORIDE 0.9% INJ PRN (08:54)
[2019-07-01] MEDS ORDERED: NS 500 ML IV ONE (12:22)
[2019-07-01] MEDS ORDERED: NORCO-10 PO PRN (13:19)
--- NOTE | 2019-07-01 17:16 | GENERAL SURGERY PROGRESS NOTE ---
DATE: 07/01/2019 SUBJECTIVE: No events. Low-grade tachycardia. He is on 3 L of nasal cannula. No fevers. The abdomen is soft, much less distended. He is in no respiratory distress. LABS: White count is 9, hematocrit is 22, his platelets are 78,000. Potassium remains low at 3. Creatinine is down to 1.1. ASSESSMENT AND PLAN: A 34-year-old gentleman with malignant left effusion, malignant ascites. He is status post paracentesis. He is tolerating a diet but given his increasing oxygen requirements, I have been asked to place a PleurX catheter on the left. We discussed the risks of bleeding, infection, malfunction of the catheter, the possibility of incomplete expansion, and a long anticipated recovery, and damage to surrounding structures. He understands all of these and consents. We will make him nothing per oral at midnight and plan for PleurX catheter tomorrow. cc: Andie Angel MD
[2019-07-01] MEDS ORDERED: KLOR-CON PO ONE (18:18)
[2019-07-01] MEDS ORDERED: NARCAN IV PRN (18:19)
--- NOTE | 2019-07-01 18:35 | PROGRESS NOTE ---
DATE: 07/01/2019 SUBJECTIVE: The patient has no major complaints. He is complaining of pain though, uncontrolled on Dilaudid 2 mg every 3 hours, so I am going to put him on a CLIP RIVETER. OBJECTIVE: Vital Signs: Blood pressure is 98/56, heart rate of 104, respiratory rate of 12, temperature 98.5 degrees, 99% on 3 L. Cardiovascular: Regular rate and rhythm. Pulmonary: Bilateral breath sounds, clear to auscultation. GI: Soft, nontender, nondistended. Bowel sounds are positive. LABORATORY DATA: Hemoglobin and hematocrit has dropped to 6.9 and 22, white count of 9, platelets up to 78. Potassium is 3, calcium 6.9. PROBLEM LIST: 1. Pleural effusion. He has had some reaccumulation. Plan will be for PleurX catheter hopefully tomorrow, per Dr. Angel, appreciate his input, and we will continue to see how things go. 2. Pancytopenia related to bone marrow suppression. His hemoglobin and hematocrit has dropped again. We will continue treatment and follow. 3. Klebsiella urinary tract infection. He is on Rocephin. 4. Spontaneous bacterial peritonitis. He is to be on Rocephin, today will be day 1. He will need to be on antibiotics for at least 7 to 10 days. 5. Hypokalemia. He is still hypokalemic. 6. Metastatic presumably gastrointestinal malignancy, unknown primary. His pain is not controlled. I agree with MS Chao as long-acting, and I am going to start a CLIP RIVETER today to help him with control of his pain. cc: Solitario Huntley MD
[2019-07-01] MEDS: DILAUDID PCA VIAL IV PRN (19:01)
[2019-07-01] MEDS: ROCEPHIN 1 GM in NS 50 ML IV SCH (19:12)
--- NOTE | 2019-07-01 19:49 | PULMONOLOGY PROGRESS NOTE ---
DATE: 07/01/2019 SUBJECTIVE: The patient reports he feels pretty good. He reports he is scheduled to have a PleurX catheter placed tomorrow for recurring pleural effusions. OBJECTIVE: Blood pressure 110/72, heart rate 97, respiratory rate 18, oxygen saturation 99% on 3 L per nasal cannula.HEENT: Pupils are equal and reactive. Oropharynx appears clear. Neck: Supple. Chest: Reveals decreased breath sounds right base. Cardiac Exam: S1-S2. Abdomen: Soft. Extremities: Reveal 1+ peripheral edema. IMPROVEMENT: A 34-year-old with 1. Recurrent pleural effusion. 2. Ascites. 3. Metastatic adenocarcinoma. 4. Transient bowel obstruction. 5. Hypoxemic respiratory failure. PLAN: 1. Continue current treatment regimen. 2. Anticipate PleurX catheter placement. cc: Dorian Bonilla MD
[2019-07-01 20:44] LABS: AGAP 7; ALB/GLOB RATIO 0.9; ALBUMIN 2.3 g/dL (3.5-5.0); ALKALINE PHOSPHATASE 75 U/L (32-122); BUN 8 mg/dL (8-22); CALCIUM 6.7 mg/dL (8.8-10.2); CHLORIDE 100 mmol/L (98-107); COSMO 282; CREATININE 0.9 mg/dL (0.7-1.2); ESTIMATED GFR > 60; GLUCOSE 82 mg/dL (70-104); GOT 16 U/L (10-34); GPT 12 U/L (10-44); SODIUM 143 mmol/L (136-145); TCO2 36 mmol/L (25-35); TOTAL BILIRUBIN 0.32 mg/dL (0.20-1.00); TOTAL PROTEIN 4.9 g/dL (6.3-8.3)
[2019-07-01] MEDS: MS CONTIN PO SCH (23:00)
[2019-07-01] MEDS: BENADRYL IV PRN (23:05)
[2019-07-02] MEDS: NS + KCL 40 MEQ 1,000 ML IV SCH ×3 (02:48→23:50)
[2019-07-02] MEDS: PHENERGAN IV PRN ×4 (02:52→23:50)
[2019-07-02 06:08] LABS: BASO% 0.8 % (0.0-0.8); EOS# 0.01 X1000 (0.0-0.7); EOS% 0.1 % (0.0-10.0); HEMATOCRIT 27.9 % (42.0-52.0); HEMOGLOBIN 8.7 g/dL (14.0-18.0); IMM GRAN# 0.07 X1000 (0.0-0.04); IMM GRAN% 0.5 % (0.0-0.5); LYMPH% 13.5 % (20.5-51.1); MCH 31.9 PG (27-31); MCHC 31.2 g/dL (33-37); MCV 102.2 FL (81-99); MONO# 1.95 X1000 (0.11-0.59); MONO% 14.7 % (1.7-9.3); MPV 10.5 FL (7.4-10.4); NEUT# 9.37 X1000 (1.4-6.5); NEUT% 70.4 % (42.2-75.2); PLT 66 X1000 (130-400); RBC 2.73 XMIL (4.7-6.1); RDW 21.1 % (11.5-14.5)
--- NOTE | 2019-07-02 07:12 | Diag Imaging Result Doc PS360 ---
CHEST-PORTABLE - 07/02/2019 INDICATION: effusion preop cxr COMPARISON: 06/29/2019 FINDINGS: Lung volumes are much lower. Lung volumes are severely low. There is a moderate left pleural effusion that appears similar to prior. No significant infiltrates. Stable right chest port in good position. IMPRESSION: Much lower lung volumes. Moderate left pleural effusion. Electronically signed by Coy Nguyen 07/02/2019 7:09 AM
[2019-07-02 07:27] LABS: BANDS 14 % (0-1); LYMPHS 12 % (21-51)
[2019-07-02 07:28] LABS: MONO 8 % (1-9); SEGS 66 % (42-75)
[2019-07-02 07:29] LABS: ANISOCYTOSIS 2+; HYPOCHROM 1+
[2019-07-02] MEDS ORDERED: DIPRIVAN 1% ONE (10:44)
[2019-07-02] MEDS: MS CONTIN PO SCH ×2 (11:14→21:02)
[2019-07-02] MEDS ORDERED: VERSED ONE (11:22)
[2019-07-02] MEDS ORDERED: XYLOCAINE-MPF 2% ONE (11:53)
--- NOTE | 2019-07-02 12:56 | Diag Imaging Result Doc PS360 ---
EXAM: CHEST-PORTABLE HISTORY: Pleurex Catheter placement left chest TECHNIQUE: Single view COMPARISON: 5:19 AM FINDINGS: Interval placement of a left-sided chest catheter. Interval decrease in the size of the left pleural effusion with partial reexpansion of the lower left lung. No pneumothorax. IMPRESSION: Interval improvement. Electronically signed by Tone Preciado 07/02/2019 12:53 PM
--- NOTE | 2019-07-02 13:00 | PROGRESS NOTE ---
DATE: 07/02/2019 INTERVAL HISTORY: The patient still with nausea and rare vomiting. Nausea with little effect current dose of Zofran. Some relief with Phenergan. Had difficulty with his long-acting morphine this morning because of throwing it back up. Pain is reasonably well controlled with the SOLAR INSTALLATION TECHNICIAN pump currently. No other acute events. REVIEW OF SYSTEMS: Twelve point review of systems negative, except as per interval history. LABS: WBC 13.3, hemoglobin 8.7, hematocrit 27.9, platelets 66. VITALS: T-max 98.4 degrees, pulse is 109, respirations 12, blood pressure 122/86, O2 saturation 99%. PHYSICAL EXAMINATION: General: No acute distress. Ill appearing. Vitals: As above. HEENT: Normocephalic, atraumatic. Cardiovascular: Slightly tachycardic, but regular. No murmurs noted. Pulmonary: A little decreased at the bases, left greater than right, otherwise clear to auscultation bilaterally Abdomen: Soft, nontender, nondistended. Bowel sounds positive. Extremities: Peripheral pulses intact. No clubbing, cyanosis. Neurologic: Cranial nerves grossly intact. Mild global weakness, but no focal deficits. Psychiatric: Normal mood and affect. Awake, alert, oriented x3. ASSESSMENT AND PLAN: 1. Likely gastrointestinal malignancy with likely metastasis to peritoneum and pleural space. The patient is following with Dr. Barboza. He is on chemotherapy. 2. Recurrent likely malignant pleural effusion. It has been reaccumulating fairly quickly. Tentatively planning on the patient going for PleurX catheter placement by Dr. Angel today. 3. Pancytopenia. The patient transfused successfully yesterday with appropriate increase. We will continue to monitor blood counts. 4. Urinary tract infection with Klebsiella on Rocephin. Continue. 5. Likely spontaneous bacterial peritonitis on Rocephin as above. Day 2 of antibiotics I believe. 6. Small parenchymal intracranial hemorrhage; no change on last head CT. No new neurologic deficits. 7. Gastroesophageal reflux disease. Continue proton pump inhibitor. 8. Hypokalemia. Recheck pending. 9. Chronic pain. Patient with significant cancer-related discomfort. Currently on MS Contin, which he has had difficulty taking and Dilaudid SOLAR INSTALLATION TECHNICIAN. We will get more aggressive with his nausea medication. We will double up on Zofran and add Phenergan 50 mg by mouth to see if we can get better control of his nausea to facilitate him transitioning to oral pain medication. Once we have his effusion controlled and a decent pain medicine regimen that he can take at home, then we will hopefully be able to be discharged within the next couple of days.
[2019-07-02] MEDS: ZOFRAN IV PRN (13:09)
--- NOTE | 2019-07-02 17:08 | OPERATIVE NOTE ---
PROCEDURE DATE: 07/02/2019 PREOPERATIVE DIAGNOSES: 1. Malignant left pleural effusion. 2. Metastatic gastric cancer. POSTOPERATIVE DIAGNOSES: 1. Malignant left pleural effusion. 2. Metastatic gastric cancer. PROCEDURE PERFORMED: Ultrasound-guided left sided PleurX catheter placement. ESTIMATED BLOOD LOSS: 5 mL. ANESTHESIA: MAC with local. INDICATION: A gentleman who has metastatic gastric cancer and malignant left-sided pleural effusion and malignant ascites. OPERATIVE FINDINGS: We were able to identify a simple fluid collection. There was a large volume of hemorrhagic, malignant-appearing ascites in the left chest. DESCRIPTION OF PROCEDURE: Risks, benefits, and alternatives were discussed patient and he consented to the procedure. He was seen preoperatively and the surgery site was confirmed. He was taken to the operating room and placed in the supine position. IV anesthesia administered. Head of the bed was elevated slightly. His chest was prepped with chlorhexidine solution and draped in usual fashion. After time-out, focused ultrasound was performed. We identified an area just above the diaphragm with good separation related to the fluid from the lung. Local anesthetic was infiltrated. The fluid was aspirated. We then made an incision and using an Angiocath, we followed the same area until we accessed the fluid. We advanced the Angiocath, withdrawing the needle, and passed a guidewire. A PleurX catheter was then tunneled from an incision made anteriorly. The cuff was placed below the skin. The tract was serially dilated, protecting the lung, ending with a peel-away sheath. The catheter was advanced into the chest. The sheath was peeled away and there was good efflux of fluid noted. Both incisions were closed with a 4-0 Monocryl. The catheter was secured with a silk suture. It was connected to a Pleur- evac device and a large amount of hemorrhagic and malignant ascites was returned. He tolerated this well. His pulmonary status did seem to improve. Dressing was applied. Dermabond was applied to his insertion site incision. He tolerated this well. No complications. cc: Andie Angel MD
[2019-07-02] MEDS: ATIVAN IV PRN (19:05)
[2019-07-02] MEDS: ROCEPHIN 1 GM in NS 50 ML IV SCH (19:25)
--- NOTE | 2019-07-02 19:31 | PULMONOLOGY PROGRESS NOTE ---
DATE: 07/02/2019 SUBJECTIVE: The patient is status post left PleurX catheter placement. It currently has drained approximately 1500 mL. He reports his breathing has improved. He reports he is getting adequate pain control on the IMAGING TECH pump. OBJECTIVE: Vital Signs: The patient has been afebrile for the last 24 hours. Blood pressure 114/90, heart rate 99, respiratory rate 12, oxygen saturation 98% on 4 L per nasal cannula. HEENT: Pupils are equal and reactive. Oropharynx is clear. Neck: Supple. Chest: Reveals diminished breath sounds left base. Cardiac exam: S1, S2. Abdomen: Soft. Extremities: Reveal trace to 1+. LABORATORIES: White blood count 13.3, hemoglobin 8.7, platelet 66,000. Chest x-ray reveals decreased size of left pleural effusion with partial reexpansion of the left lung. IMPRESSION: 1. Metastatic adenocarcinoma. 2. Recurrent pleural effusion. 3. Ascites. 4. Transient bowel obstruction. 5. Hypoxemic respiratory failure. PLAN: 1. Continue PleurX catheter to continuous suction. Anticipate discharge with PleurX containment system at the time of discharge. 2. It is unclear if he will be able to tolerate additional chemotherapy. End-of-life discussions are in progress. cc: Dorian Bonilla MD
[2019-07-02] MEDS: DILAUDID PCA VIAL IV PRN (21:02)
[2019-07-03] MEDS: ATIVAN IV PRN ×3 (00:06→15:07)
[2019-07-03] MEDS: NS + KCL 40 MEQ 1,000 ML IV SCH ×3 (00:10→18:23)
[2019-07-03] MEDS: PHENERGAN PO PRN ×2 (05:42→17:45)
[2019-07-03 06:28] LABS: BASO# 0.05 X1000 (0.0-0.2); BASO% 0.3 % (0.0-0.8); EOS# 0.01 X1000 (0.0-0.7); EOS% 0.1 % (0.0-10.0); HEMOGLOBIN 8.5 g/dL (14.0-18.0); IMM GRAN# 0.05 X1000 (0.0-0.04); IMM GRAN% 0.3 % (0.0-0.5); LYMPH# 2.17 X1000 (1.2-3.4); LYMPH% 14.6 % (20.5-51.1); MCH 31.3 PG (27-31); MCHC 30.4 g/dL (33-37); MCV 102.9 FL (81-99); MONO# 1.95 X1000 (0.11-0.59); MONO% 13.1 % (1.7-9.3); MPV 10.7 FL (7.4-10.4); NEUT# 10.63 X1000 (1.4-6.5); NEUT% 71.6 % (42.2-75.2); PLT 64 X1000 (130-400); RBC 2.72 XMIL (4.7-6.1); RDW 20.6 % (11.5-14.5); WBC 14.86 X1000 (4.8-10.8)
[2019-07-03 07:01] LABS: AGAP 8; BUN 8 mg/dL (8-22); CHLORIDE 100 mmol/L (98-107); COSMO 285; CREATININE 0.9 mg/dL (0.7-1.2); ESTIMATED GFR > 60; GLUCOSE 89 mg/dL (70-104); POTASSIUM 4.1 mmol/L (3.5-5.1); SODIUM 144 mmol/L (136-145); TCO2 36 mmol/L (25-35)
[2019-07-03 07:16] LABS: CALCIUM 6.6 mg/dL (8.8-10.2)
--- NOTE | 2019-07-03 09:19 | Diag Imaging Result Doc PS360 ---
EXAM: CHEST-PORTABLE HISTORY: malignant effusion. dyspnea TECHNIQUE: Single view COMPARISON: 07/02/2019 FINDINGS: Poor inspiratory effort. No change in the right portacatheter. No pneumothorax. No cardiomegaly. No pulmonary edema. There is a catheter in the left lung base. There is a small left effusion with basilar atelectasis and/or infiltrates. Interstitial markings in the left lung base are slightly less pronounced on the current study. IMPRESSION: Slight interval improvement Electronically signed by Tone Preciado 07/03/2019 9:17 AM
[2019-07-03] MEDS: MS CONTIN PO SCH ×2 (09:21→20:46)
[2019-07-03] MEDS: OXY IR PO PRN ×3 (09:22→18:04)
[2019-07-03] MEDS: ZOFRAN IV PRN ×2 (09:28→20:45)
[2019-07-03] MEDS: PHENERGAN IV PRN (11:30)
[2019-07-03] MEDS ORDERED: CALCIUM GLUCONATE 3 GM in NS 100 ML IV ONE (11:52)
--- NOTE | 2019-07-03 12:13 | PROGRESS NOTE ---
DATE: 07/03/2019 INTERVAL HISTORY: Nausea, somewhat improved with increased doses of Phenergan. Still a little bit of vomiting last night, however. Still requiring some TOP HAT BODY MAKER pump for pain control. Status post PleurX cath placement yesterday. He has had a large amount out of that, greater than 2 L. Chest tube remains to suction. No other acute events. REVIEW OF SYSTEMS: A 12-point review of systems negative except as per interval history. LABORATORY DATA: WBC 14.8, hemoglobin 8.5, hematocrit 28.0, platelets 64,000. Sodium 144, potassium 4.1, BUN 8, creatinine 0.9, ionized calcium 0.9. IMAGING: Chest x-ray with slight interval improvement in left effusion. OBJECTIVE: Vital Signs: T-max 98.5 degrees, pulse 116, respirations 17, blood pressure 130/93, O2 saturation 94% on 4 L by nasal cannula. General: No acute distress. Chronically ill appearing. HEENT: Normocephalic, atraumatic. Cardiovascular: Mildly tachycardic, but regular. No murmurs noted. Pulmonary: A little less decreased at the left base. Largely clear to auscultation. Abdomen: Soft, nontender, nondistended. Bowel sounds positive. Extremities: Peripheral pulses intact. No clubbing or cyanosis. Neurologic: Cranial nerves grossly intact. Mild global weakness unchanged but no focal deficits identified. Psychiatric: Normal mood and affect. Awake, alert, oriented x3. ASSESSMENT AND PLAN: 1. Likely gastrointestinal malignancy with metastasis to peritoneum and pleural space. Patient followed by Dr. Barboza. Patient on chemo. 2. Recurrent malignant pleural effusion. It was reaccumulating rapidly as the patient had PleurX catheter placed yesterday. He has had well over 2 L out from that so far. The tube remains to suction currently. Uncertain how long that it may need to be on suction. 3. Pancytopenia, relatively stable currently. Did require transfusion earlier in the hospitalization. 4. Urinary tract infection with Klebsiella. Patient on Rocephin, which we will continue. 5. Likely spontaneous bacterial peritonitis. The patient on Rocephin as above. Day 3 of antibiotics. 6. Small intraparenchymal intracranial hemorrhage. No change on last CT. No neurologic deficits. 7. Gastroesophageal reflux disease. Continue proton pump inhibitor. 8. Hypokalemia, resolved with repeated repletion. 9. Hypocalcemia. Will replete and monitor. 10. Chronic pain, nausea. Still some nausea and vomiting last night but improved this morning on increased Phenergan. We will see how he does with that. Currently on MS Contin, but nausea has made that difficult to take. If he does not improve today with more aggressive nausea medications, then may need to transition his long-acting opiate to a fentanyl patch. Currently still on Dilaudid TOP HAT BODY MAKER, which he has been having to use fairly often.
--- NOTE | 2019-07-03 12:52 | GENERAL SURGERY PROGRESS NOTE ---
DATE: 07/03/2019 SUBJECTIVE: Feels better from a pulmonary standpoint. No fevers. He remains with low-grade tachycardia in the 110s. OBJECTIVE: Blood pressure 118/92, oxygen saturation 100% on 4 L. General: He is alert. Left chest tube in place with sanguinous output, although this does seem to be decreasing. I reviewed his x-ray. It shows no pneumothorax and a significant improvement in effusions. ASSESSMENT/PLAN: A 34-year-old gentleman with malignant left effusion. He has a PleurX catheter in place. We will continue to Pleur-Evac until he is ready to go home, then switch it, cap it off, and let him go home with home health. Otherwise continue aggressive pulmonary toileting. cc: Andie Angel MD
[2019-07-03] MEDS: ROCEPHIN 1 GM in NS 50 ML IV SCH (17:45)
--- NOTE | 2019-07-03 19:59 | PULMONOLOGY PROGRESS NOTE ---
DATE: 07/03/2019 SUBJECTIVE: The patient is resting upon my arrival. He is without complaints. OBJECTIVE: Vital Signs: BP 130/93, heart rate 116, respiratory rate 17, oxygen saturation 99% on 4 L. HEENT: Pupils are equal and reactive. Oropharynx is clear. Neck: Supple. Chest: Decreased breath sounds, left base. Cardiac: Increased rate, regular rhythm. Abdomen: Soft. Extremities: 1+ tissue edema. LABORATORIES: Chest x-ray reveals decreased effusion at the left base. IMPRESSION: 34-year-old with: 1. Metastatic adenocarcinoma. 2. Recurrent pleural effusion, status post PleurX catheter placement. 3. Ascites. 4. Hypoxemic respiratory failure. 5. Transient bowel obstruction. DISCUSSION: 34-year-old with problems outlined above. His breathing has improved with placement of the PleurX catheter and significant drainage of the left pleural space. He continues to have significant output from the chest tube. Hopefully, this will diminish and he can be discharged home soon. PLAN: 1. Continue PleurX catheter connection to the Pleur-Evac with anticipation of transitioning to closed bottles at the time of discharge. 2. Overall prognosis is poor. cc: Dorian Bonilla MD
[2019-07-04] MEDS: PHENERGAN IV PRN ×3 (03:07→23:11)
[2019-07-04] MEDS: ATIVAN IV PRN ×4 (03:07→23:19)
[2019-07-04] MEDS: NS + KCL 40 MEQ 1,000 ML IV SCH ×3 (05:34→17:29)
[2019-07-04 06:23] LABS: BASO# 0.03 X1000 (0.0-0.2); BASO% 0.2 % (0.0-0.8); EOS# 0.01 X1000 (0.0-0.7); EOS% 0.1 % (0.0-10.0); HEMATOCRIT 27.1 % (42.0-52.0); HEMOGLOBIN 8.3 g/dL (14.0-18.0); IMM GRAN# 0.05 X1000 (0.0-0.04); IMM GRAN% 0.3 % (0.0-0.5); LYMPH# 1.81 X1000 (1.2-3.4); LYMPH% 10.3 % (20.5-51.1); MCH 31.3 PG (27-31); MCHC 30.6 g/dL (33-37); MCV 102.3 FL (81-99); MONO# 1.77 X1000 (0.11-0.59); MONO% 10.1 % (1.7-9.3); MPV 10.5 FL (7.4-10.4); NEUT# 13.91 X1000 (1.4-6.5); PLT 63 X1000 (130-400); RBC 2.65 XMIL (4.7-6.1); RDW 19.9 % (11.5-14.5); WBC 17.58 X1000 (4.8-10.8)
[2019-07-04 06:57] LABS: ESTIMATED GFR > 60
[2019-07-04 07:06] LABS: AGAP 7; BUN 7 mg/dL (8-22); CHLORIDE 101 mmol/L (98-107); COSMO 281; CREATININE 0.9 mg/dL (0.7-1.2); GLUCOSE 89 mg/dL (70-104); POTASSIUM 4.2 mmol/L (3.5-5.1); SODIUM 142 mmol/L (136-145); TCO2 34 mmol/L (25-35)
[2019-07-04] MEDS: OXY IR PO PRN ×2 (07:27→12:42)
[2019-07-04] MEDS: ZOFRAN IV PRN (10:00)
[2019-07-04] MEDS: MS CONTIN PO SCH ×2 (12:33→20:40)
[2019-07-04] MEDS: PHENERGAN PO PRN ×2 (12:45→20:41)
[2019-07-04] MEDS: DILAUDID PCA VIAL IV PRN (13:16)
--- NOTE | 2019-07-04 13:40 | HEMO/ONC PROGRESS NOTE ---
DATE: 07/04/2019 SUBJECTIVE: Reviewed the patient's chart today. There is a discussion of possibly starting the patient on the fentanyl patch. Certainly, this seems appropriate given his ongoing issues with nausea. We would support the patient being on a fentanyl patch, and would be able to provide a prescription, as well as management of his fentanyl patch once he is discharged from the hospital. He has now had a PleurX catheter in place, and management will continue to be per General Surgery and the primary team. We are available via telephone through the rest of the weekend. We will resume regular follow-up, including regular chart reviews, on Sunday, July 06. Dictated by MICHAEL Castrejon for Marvin Barger MD cc: Marvin Barger MD
[2019-07-04] MEDS ORDERED: DURAGESIC 25 MICROGM/HR PATCH TD ONE (15:23)
--- NOTE | 2019-07-04 15:50 | PROGRESS NOTE ---
DATE: 07/04/2019 SUBJECTIVE: I have seen and examined Mr. Huitron this morning, he refers to be doing well. He said his breathing is now better under control. No new complaints. OBJECTIVE: Vital signs: Blood pressure is 123/83, pulse of 129, respiration is 20, temperature is 97.6 degrees. General: Mr. Huitron is a 34-year-old gentleman. He is in bed, no distress. He was off supplemental oxygen. HEENT: Mucosa is pink and moist. He is chronically ill-looking. Chest: Air entry is bilaterally reduced with some crackles in the posterior lung bases. The patient has a pigtail catheter inserted in the left anterolateral chest wall. Cardiovascular: Regular rate and rhythm Gastrointestinal: Abdomen is soft, nontender. Extremities: No pedal edema. Central Nervous System: Patient is awake, alert, and oriented. Psychiatric: Patient has normal mood and affect. LABORATORY DATA: WBC is up to 17.58, hemoglobin is 8.3, platelet count of 63,000. Chemistry is reviewed and is unremarkable. ASSESSMENT: 1. Acute hypoxemic respiratory failure secondary to pleural effusion. 2. Recurrent pleural effusion patient is status post PleurX catheter placement. 3. Malignant ascites. 4. Transient bowel obstruction, resolved. 5. Suspect upper gastrointestinal malignancy with metastasis to the peritoneum. 6. Klebsiella urinary tract infection. 7. Chronic pain chronic opioid therapy. In general, I think Mr. Huitron seems to be fairly stable today. We are going to switch him to a fentanyl patch and discontinue the pump and continue with the rest of his care. cc: Bunny Lynne MD
--- NOTE | 2019-07-04 17:19 | GENERAL SURGERY PROGRESS NOTE ---
DATE: 07/04/2019 SUBJECTIVE: Feels better from pulmonary standpoint. No fevers, low-grade tachycardia, stable. Blood pressure [*]. His left chest tube is in place, continued serosanguineous output. Chest x- ray shows continued improvement in his effusion with no pneumothorax. ASSESSMENT AND PLAN: A 34-year-old gentleman with malignant left effusion, metastatic gastric cancer. He has a PleurX catheter in place. We will keep it to Pleur-evac until he is ready go home then we can cap it off. I have talked to our charge nurse about that. Otherwise, one of my partners will follow for the weekend. cc: Andie Angel MD
[2019-07-04] MEDS: ROCEPHIN 1 GM in NS 50 ML IV SCH (18:49)
[2019-07-05] MEDS: ZOFRAN IV PRN ×5 (01:32→21:53)
[2019-07-05] MEDS: NS + KCL 40 MEQ 1,000 ML IV SCH ×3 (01:36→21:42)
[2019-07-05] MEDS: PHENERGAN IV PRN ×2 (03:32→08:48)
[2019-07-05] MEDS: OXY IR PO PRN ×2 (03:32→12:23)
[2019-07-05] MEDS: ATIVAN IV PRN ×4 (08:22→21:53)
[2019-07-05] MEDS: PHENERGAN PO PRN ×2 (08:23→12:23)
[2019-07-05] MEDS: MS CONTIN PO SCH ×2 (09:16→21:43)
--- NOTE | 2019-07-05 13:47 | PROGRESS NOTE ---
DATE: 07/05/2019 SUBJECTIVE: The patient is in bed, awake, communicative, tired looking and lethargic looking, nauseated occasionally. OBJECTIVE: Vital Signs: Noted with pulse oximetry to be 93% on 3 L nasal cannula. Head and Neck: Trachea midline. Chest: Reduced air entry at the bases. PleurX catheter in place. Cardiac: S1, S2. Abdomen: Nontender. Extremities: Plus 1 pedal edema. Neurologic: Awake and communicative. LABORATORY DATA: CBC noted a WBC of 17.58, hemoglobin 8.3. CMP noted a creatinine of 0.9. ASSESSMENT AND PLAN: 1. A 34-year-old man with abdominal cancer with unknown primaries. 2. Arthritis. 3. Pleural effusion status post PleurX catheter. 4. We will continue monitoring x-ray and drainage status. 5. Continue oxygen and titrate to the patient needs. cc: Mati Chappell MD
--- NOTE | 2019-07-05 14:41 | PROGRESS NOTE ---
DATE: 07/05/2019 SUBJECTIVE: I have seen and examined Mr. Huitron. Mr. Huitron this morning referred to be doing okay, but just tired and was very little responsive to me. He said he was hurting everywhere, and he does not think the MS Jeremie was working. OBJECTIVE: Vital signs: Blood pressure 108/74, pulse of 118, respirations 17, temperature 97.7 degrees. The patient was saturating 93% on 3 liters. General: Mr. Huitron is a 34-year-old male. He was in bed. He does not seem to be in any cardiopulmonary distress. He looks remarkably frail and chronically ill. HEENT: Mucosa is pink and moist. Chest: Air entry was bilaterally reduced. Some crackles posteriorly. There is a pigtail catheter in the left anterolateral chest wall. Cardiovascular: Regular rate and rhythm. There were no murmurs, no rubs. GI/Abdomen: Soft, minimally distended, but nontender. Extremities: No pedal edema. CASINO CASHIER MANAGER: The patient was sleeping for most times. He would open his eyes, talk and go back to sleep. LABORATORY DATA: None for today. ASSESSMENT: 1. Acute hypoxemic respiratory failure on presentation secondary to recurrent pleural effusion. The patient is status post PleurX catheter placement. There is documentation of 290 output from yesterday in 24 hours. We are going to continue to monitor. Pulmonary Medicine and Surgery on board. 2. Upper gastrointestinal malignancy with metastasis to peritoneum, but of unknown primary associated with ascites. 3. Transient bowel obstruction, resolved. 4. Klebsiella urinary tract infection, improved. 5. Chronic pain syndrome on chronic opioid therapy. The patient's pump has been discontinue. We have started him on fentanyl patch, and we are going to continue to titrate. cc: Bunny Lynne MD
[2019-07-05] MEDS: ROCEPHIN 1 GM in NS 50 ML IV SCH (18:27)
[2019-07-06] MEDS: PHENERGAN IV PRN ×5 (01:13→23:52)
[2019-07-06] MEDS: ZOFRAN IV PRN ×3 (02:51→17:50)
[2019-07-06] MEDS: OXY IR PO PRN ×5 (02:52→23:51)
[2019-07-06] MEDS: PHENERGAN PO PRN (06:18)
[2019-07-06] MEDS: ATIVAN IV PRN ×5 (06:18→23:52)
[2019-07-06] MEDS: NS + KCL 40 MEQ 1,000 ML IV SCH ×3 (06:27→17:50)
[2019-07-06 06:50] LABS: BASO# 0.03 X1000 (0.0-0.2); BASO% 0.2 % (0.0-0.8); HEMATOCRIT 23.7 % (42.0-52.0); HEMOGLOBIN 7.5 g/dL (14.0-18.0); IMM GRAN# 0.03 X1000 (0.0-0.04); IMM GRAN% 0.2 % (0.0-0.5); LYMPH# 1.93 X1000 (1.2-3.4); LYMPH% 13.9 % (20.5-51.1); MCH 32.5 PG (27-31); MCHC 31.6 g/dL (33-37); MCV 102.6 FL (81-99); MONO# 1.64 X1000 (0.11-0.59); MONO% 11.8 % (1.7-9.3); MPV 10.4 FL (7.4-10.4); NEUT# 10.27 X1000 (1.4-6.5); NEUT% 73.9 % (42.2-75.2); PLT 86 X1000 (130-400); RBC 2.31 XMIL (4.7-6.1); RDW 20.1 % (11.5-14.5)
[2019-07-06 07:26] LABS: AGAP 8; BUN 6 mg/dL (8-22); CHLORIDE 95 mmol/L (98-107); COSMO 266; CREATININE 0.9 mg/dL (0.7-1.2); ESTIMATED GFR > 60; GLUCOSE 73 mg/dL (70-104); SODIUM 135 mmol/L (136-145); TCO2 32 mmol/L (25-35)
[2019-07-06 08:09] LABS: CALCIUM 6.5 mg/dL (8.8-10.2)
--- NOTE | 2019-07-06 09:14 | Diag Imaging Result Doc PS360 ---
CHEST-1 VIEW - 07/06/2019 INDICATION: SOB COMPARISON: 07/03/2019 FINDINGS: Stable left chest tube in good position. There has been decrease in the there has been decrease in the trace pneumothorax at the left apex. This now measures about 4 mm. Lung volumes remain severely low. IMPRESSION: Improvement from prior. Electronically signed by Coy Nguyen 07/06/2019 9:11 AM
[2019-07-06] MEDS: MS CONTIN PO SCH ×2 (09:20→20:52)
--- NOTE | 2019-07-06 09:57 | Diag Imaging Result Doc PS360 ---
KUB ABDOMEN - 07/06/2019 INDICATION: SBO COMPARISON: 10/25/2018 FINDINGS: There is a nonobstructive bowel gas pattern. No free air or abdominal calcifications. IMPRESSION: No acute disease. Electronically signed by Coy Nguyen 07/06/2019 9:55 AM
[2019-07-06] MEDS ORDERED: DULCOLAX PR ONE (10:31)
[2019-07-06] MEDS ORDERED: RELISTOR SUBQ ONE (10:36)
--- NOTE | 2019-07-06 10:54 | PROGRESS NOTE ---
DATE: 07/06/2019 SUBJECTIVE: I have seen and examined Mr. Huitron this morning. He refers to be nauseated. when I saw him, he had a corral in front of him and he was vomiting. OBJECTIVE: Vital signs: Blood pressure is 107/66, pulse of 118, temperature 98.5 degrees. Patient is saturating 94% on room air. General: Mr. Huitron is a 34-year-old gentleman. He is in bed, no distress. HEENT: Mucosa is pink and moist. He looks frail and chronically ill and wasted. Neck: Supple. Chest: Air entry is bilaterally reduced. Some crackles posteriorly. There is a pigtail catheter in the left anterolateral chest wall. Cardiovascular: Regular rate and rhythm. No murmurs, no rubs, no gallops. Abdomen: Soft, minimally tender. Bowel sounds present but extremely hypoactive. There is an old surgical scar on the right upper quadrant. Extremities: No pedal edema. WORKERS COMPENSATION MANAGER: Patient is awake, alert. Follows commands. LABORATORY DATA: WBC is trending down to 13.90 today, hemoglobin is 7.5, platelet count of 85,000. Chemistry is also reviewed. ASSESSMENT: 1. Acute hypoxemic respiratory failure on presentation secondary to recurrent pleural effusion. Patient is status post PleurX catheter placement in the left hemithorax. We will continue to monitor. 2. Upper gastrointestinal malignancy with metastasis to peritoneum, complicated with carcinomatosis and ascites. Patient follows up with Dr. Barboza. 3. Klebsiella urinary tract infection, resolved. 4. Chronic pain syndrome on chronic opioid therapy. 5. Nausea and vomiting presumably due to constipation from chronic narcotic use. We will start the patient on bowel regimen. We will also give him a shot of methylnaltrexone and put him on p.o. Movantik. The patient's prognosis continues to be remarkably poor. We will continue follow up with further recommendations Hematology/Oncology. cc: Bunny Lynne MD [facility]
[2019-07-06] MEDS: MIRALAX PO SCH ×2 (12:36→20:52)
--- NOTE | 2019-07-06 14:13 | PROGRESS NOTE ---
DATE: 07/06/2019 SUBJECTIVE: He looks somewhat better today. He feels slightly that way, but still nausea is consistent. OBJECTIVE: Vital signs: Seen. Head and neck: Trachea midline. Chest: Reduced air entry at the bases and PleurX catheter in place. Cardiac: Sinus rhythm. Abdomen: Nontender and slightly distended. Extremities: +1 pedal edema. Neurologic: Awake and communicative. LABS AND INVESTIGATIONS: CBC seen. WBCs 15.9, platelets 86,000, hemoglobin 7.5. Creatinine 0.19. CMP seen. Chest x-ray from today was reviewed and showed improvement from prior. Abdominal x-ray was also reviewed, and there is no acute disease. ASSESSMENT AND PLAN: 1. A 34-year-old man with abdominal cancer with unknown primary. 2. Pleural effusion status post PleurX catheter. We are monitoring output and patient oxygenation. 3. We are titrating oxygen levels the patient needs and monitoring closely. cc: Mati Chappell MD
[2019-07-06] MEDS: ROCEPHIN 1 GM in NS 50 ML IV SCH (18:12)
[2019-07-07] MEDS: NS + KCL 40 MEQ 1,000 ML IV SCH (03:49)
[2019-07-07] MEDS: PHENERGAN IV PRN ×2 (03:58→09:17)
[2019-07-07 05:55] LABS: MCH 32.9 PG (27-31); MCHC 31.8 g/dL (33-37); MCV 103.3 FL (81-99); RBC 2.13 XMIL (4.7-6.1); RDW 20.1 % (11.5-14.5); WBC 12.54 X1000 (4.8-10.8)
[2019-07-07] MEDS: MOVANTIK PO SCH (06:11)
[2019-07-07] MEDS: ATIVAN IV PRN ×4 (06:11→21:14)
[2019-07-07] MEDS: ZOFRAN IV PRN ×3 (06:15→17:33)
[2019-07-07 06:31] LABS: AGAP 10; ALB/GLOB RATIO 0.5; ALBUMIN 1.8 g/dL (3.5-5.0); ALKALINE PHOSPHATASE 72 U/L (32-122); BUN 6 mg/dL (8-22); CALCIUM 5.9 mg/dL (8.8-10.2); CHLORIDE 96 mmol/L (98-107); COSMO 272; CREATININE 0.9 mg/dL (0.7-1.2); ESTIMATED GFR > 60; GLUCOSE 71 mg/dL (70-104); GOT 15 U/L (10-34); GPT 9 U/L (10-44); POTASSIUM 4.2 mmol/L (3.5-5.1); SODIUM 138 mmol/L (136-145); TCO2 32 mmol/L (25-35); TOTAL PROTEIN 5.2 g/dL (6.3-8.3)
[2019-07-07] MEDS ORDERED: CALCIUM GLUCONATE 1 GM in NS 50 ML IV ONE (06:34)
[2019-07-07] MEDS ORDERED: NS 500 ML IV ONE (08:49)
[2019-07-07] MEDS: MS CONTIN PO SCH (09:17)
[2019-07-07] MEDS: SODIUM CHLORIDE 0.9% INJ PRN (09:17)
[2019-07-07] MEDS: MIRALAX PO SCH ×2 (09:17→20:13)
--- NOTE | 2019-07-07 12:44 | Diag Imaging Result Doc PS360 ---
EXAM: CT ABDOMEN/PELVIS W/O CONTRAST 07/07/2019 HISTORY: po intolerance TECHNIQUE: This exam was performed using automated exposure control, adjustment of mA or kV according to patient size, and/or use of iterative reconstruction technique. COMMENT: There is a small pneumothorax on the left with thickening of the visceral pleura. There is atelectasis and/or fibrosis in both lower lobes. The large pleural fluid collection which was previously present on the left is largely been evacuated since the previous study of 06/25/2019. There is a large volume of ascites. There is thickening of the peritoneum along the left lateral aspect of the subphrenic space on the left which is probably due to implants. Some caking of the omentum is present. There are multiple distended small bowel loops in the left abdomen. There is no evidence of hydronephrosis. There is a 2 mm calculus in the right upper collecting system. The aorta is not distended. The stomach is slightly distended with fluid. There has been cholecystectomy. The liver is apparently stable since the previous study. The spleen is not enlarged. The pancreas is grossly normal in appearance. There are some prominent mesenteric nodes none of which exceeds 12 mm in size. The urinary bladder is not particularly distended. There is some fluid in the distal colon. The regional skeleton appears to be intact. IMPRESSION: Evacuation of left pleural fluid collection with small residual pneumothorax. Massive ascites, most likely malignant. Nonspecific mesenteric adenopathy. Partial obstruction of the small bowel between the proximal jejunum and the distal ileum. Electronically signed by Ady Mayfield 07/07/2019 12:41 PM
--- NOTE | 2019-07-07 13:39 | PROGRESS NOTE ---
DATE: 07/07/2019 SUBJECTIVE: This morning Mr. Huitron continues to be remarkably nauseated and vomiting. He is practically not able to tolerate anything p.o. OBJECTIVE: Vitals: Blood pressure is 108/76, pulse of 116, respirations 15, temperature 99.2 degrees. General exam: Mr. Huitron is a 34-year-old gentleman. He is in bed. He looks remarkably malnourished, chronically ill-looking. HEENT: Mucosa is pink. Respiratory System: Air entry is bilaterally reduced, some crackles posteriorly. There is a pigtail catheter in the left anterolateral chest wall. Cardiovascular: Regular rate and rhythm. No murmurs. GI/Abdomen: Soft. Hypoactive. There is an old surgical scar on the right upper quadrant. Extremities: No pedal edema. TORCH BRAZER: Patient is awake, alert, follows some basic commands. The patient has a port on the right anterior chest wall. LABORATORY DATA: WBC of 12.54, hemoglobin is 7.0, platelet count of 87. Chemistry is also reviewed. ASSESSMENT: 1. Acute hypoxemic respiratory failure on presentation secondary to recurrent pleural effusion. The patient is status post PleurX catheter placement in the left hemithorax. He seems to be doing a lot better since this was put in. 2. 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 The patient's abdomen remarkably distended today. A CT scan shows a massive ascites. We are going to get that also tapped to see if that helps with the gastrointestinal symptoms. 3. Klebsiella urinary tract infection, treated. 4. Intractable nausea and vomiting associated with partial small bowel obstruction. I think this is all related to the carcinomatosis. Patient at this point is completely oral intolerant. So we are going to keep him on nothing by mouth, start him on total parenteral nutrition for a short period of time, and re-evaluate and see within a day or 2. 5. Constipation, resolved. 6. Protein calorie malnutrition with a total albumin of 1.8. We are going to get a racing secretary and handicapper on board. Hopefully with the total parenteral nutrition we are able to improve his nutritional status. PLAN: In general, Mr. Huitron is a 34-year-old gentleman, who unfortunately has been diagnosed with GI malignancy of unclear primary source with metastasis to abdomen, who has had multiple complications. He seems to continue to decline with his disease. He follows up with Dr. Barboza. He presented because of shortness of breath, which PleurX catheter has been placed in the left anterolateral chest and has been draining well. The effusion in the lungs is completely resolved. Unfortunately Mr. Huitron continues to be PO intolerant. He has massive ascites. We are going to get IR to drain this. We will keep him n.p.o. for a day or 2, put him on TPN to see if we can improve on his nutritional status, and get him slightly better before he goes home. He prefers to remain full code for now. cc: Bunny Lynne MD MTDD
[2019-07-07] MEDS ORDERED: DURAGESIC 50 MICROGM/HR PATCH TD SCH (14:00)
[2019-07-07] MEDS: PHENERGAN PO PRN ×2 (14:47→21:07)
[2019-07-07 16:14] LABS: MAGNESIUM 0.6 mg/dL (1.5-2.7); PHOSPHORUS 4.3 mg/dL (2.7-4.5)
[2019-07-07] MEDS ORDERED: MAGNESIUM SULFATE 4 GM/S.W.I. 4 GM/100 ML IVPB IV ONE (16:34)
--- NOTE | 2019-07-07 17:14 | PROGRESS NOTE ---
DATE: 07/07/2019 ADDENDUM REPORT Today, Mr. Huitron was scheduled to have a paracenteses done. However, he said he feels so sick that he will not be able to do it today, so it has been postponed till tomorrow. I have also discussed the case about nutrition with Pratima, the dietitian. At this point, Mr. Huitron continues to be severely p.o. intolerant so the only thing that we can do in the short term to improve his nutritional status is to put him on TPN. Unfortunately, his magnesium is extremely low and we need to replace it before he starts on TPN. This will be started tomorrow. I have discussed that also with Dr. Barboza and she is okay for the port to be used for TPN if needed. Mr. Huitron also does not have any other line so we will consult for PICC line tomorrow, hopefully to get a secondary line for the ongoing care since he has a very poor peripheral access and he is quite edematous. Both Dr. Barboza and I, think that Mr. Huitron has malignant partial small-bowel obstruction and because he has not improved on both the Phenergan and the Zofran, we are going to start him also on Haldol and Decadron to see if he responds some to these medications. We will follow up with further recommendations from Dr. Barboza. I have discussed the whole plan with the nurse today. cc: Bunny Lynne MD MTDRufus
[2019-07-07] MEDS: DECADRON IV SCH (17:33)
[2019-07-07] MEDS: HALDOL IV SCH (17:33)
[2019-07-07] MEDS: ROCEPHIN 1 GM in NS 50 ML IV SCH (20:13)
[2019-07-08] MEDS: HALDOL IV SCH ×3 (00:44→16:56)
[2019-07-08] MEDS: DECADRON IV SCH ×3 (00:45→16:54)
[2019-07-08] MEDS: PHENERGAN IV PRN ×4 (01:53→23:59)
[2019-07-08 05:54] LABS: HEMATOCRIT 28.6 % (42.0-52.0); MCH 30.8 PG (27-31); MCHC 31.5 g/dL (33-37); MCV 97.9 FL (81-99); RBC 2.92 XMIL (4.7-6.1); RDW 19.8 % (11.5-14.5); WBC 13.44 X1000 (4.8-10.8)
[2019-07-08 05:55] LABS: INR 1.13; PROTIME 14.7 Seconds (11.0-16.0)
[2019-07-08 05:56] LABS: PTT 40.1 Seconds (22.3-41.8)
[2019-07-08] MEDS: MOVANTIK PO SCH (06:06)
[2019-07-08 06:39] LABS: AGAP 12; ALBUMIN 2.1 g/dL (3.5-5.0); BUN 7 mg/dL (8-22); CHLORIDE 90 mmol/L (98-107); COSMO 266; CREATININE 0.9 mg/dL (0.7-1.2); ESTIMATED GFR > 60; GLUCOSE 100 mg/dL (70-104); MAGNESIUM 1.6 mg/dL (1.5-2.7); PHOSPHORUS 4.6 mg/dL (2.7-4.5); POTASSIUM 3.8 mmol/L (3.5-5.1); SODIUM 134 mmol/L (136-145); TCO2 32 mmol/L (25-35)
[2019-07-08] MEDS ORDERED: CALCIUM GLUCONATE 1 GM in NS 50 ML IV ONE (06:52)
[2019-07-08 06:57] LABS: CALCIUM 6.6 mg/dL (8.8-10.2)
[2019-07-08] MEDS ORDERED: NS 250 ML ONE (08:24)
[2019-07-08] MEDS: ZOFRAN IV PRN ×3 (09:15→21:24)
[2019-07-08] MEDS: MIRALAX PO SCH ×2 (09:21→21:36)
[2019-07-08] MEDS: ATIVAN IV PRN ×4 (09:44→23:59)
[2019-07-08] MEDS: OXY IR PO PRN ×4 (09:44→23:59)
[2019-07-08] MEDS: PHENERGAN PO PRN (11:56)
--- NOTE | 2019-07-08 11:59 | Diag Imaging Result Doc PS360 ---
US ABD PARACENTESIS W S/I - 07/08/2019 INDICATION: massive ascites COMPARISON: CT from 07/07/2019 FINDINGS: The risks and benefits of the procedure were discussed with the patient. All questions were answered. Written and verbal consent was obtained. Ultrasound scanning demonstrated ascites. Overlying skin was prepped and draped in sterile fashion. Anesthesia was achieved with injection of 10 cc 1% lidocaine. The paracentesis catheter was advanced until the return of ascites fluid. 5.2 L was aspirated. The catheter was withdrawn intact. The patient reported no symptoms from the procedure. IMPRESSION: Successful and uncomplicated ultrasound-guided paracentesis. Electronically signed by Coy Nguyen 07/08/2019 11:56 AM
[2019-07-08 13:47] LABS: ALBUMIN BODY FLUID 1.6 g/dL; AMYLASE BODY FLUID 10 U/L; TOTAL PROT BODY FLUID 3.3 g/dL
[2019-07-08 14:09] LABS: BODY FLUID SOURCE PERITONEAL FLUID; WBC BF 170 /cumm
[2019-07-08 14:10] LABS: MONOS 42 %; POLYS 58 %
--- NOTE | 2019-07-08 14:19 | HEMO/ONC PROGRESS NOTE ---
DATE: 07/08/2019 CHIEF COMPLAINT: This pain patch is not working. HISTORY OF PRESENT ILLNESS: Edmar continues to have ongoing nausea, although he is no longer vomiting. He underwent a therapeutic paracentesis this morning with 5 L of fluid aspirated. He continues to have ongoing nausea. His pain is up and down from a 4 to a 10 over the last 24 hours. His increased dose of fentanyl patch was placed yesterday. PHYSICAL EXAMINATION: Temperature 97.4, pulse 114, respiratory rate 20, blood pressure 112/83, O2 saturation 99% on 3 L. General: This is a cachectic, chronically ill-appearing, man who appears older than his stated age. He is unaccompanied at the time of consultation. Eyes: Sclerae are mildly icteric with pale conjunctivae. Cardiovascular: Tachycardic but regular rhythm. No murmurs, rubs, or gallops. Pulmonary: Decreased breath sounds at left lung base. PleurX catheter in place. No wheezes, rales, or rhonchi. GI: Abdomen is soft, much less distended, nontender, with decreased bowel sounds. LABS: White count 13.4, hemoglobin 9, platelet count 108,000. INR 1.13. Creatinine 0.9, phosphorus up to 4.6, magnesium 1.6, albumin 2.1. IMAGING: Ultrasound-guided paracentesis report reviewed. Abdominal and pelvic CT from 07/07/2019 shows small residual pneumothorax, status post evacuation of left pleural fluid collection, massive ascites, most likely malignant with nonspecific mesenteric adenopathy, partial obstruction of the small bowel between the proximal jejunum and distal ileum. ASSESSMENT AND PLAN: 1. 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 He is still quite symptomatic and obviously has declining performance status. We have discussed goals of life, goals of care, and end of life care multiple times. The patient, understandably at 34 years old, is not ready to give up on treatment as of yet. He is fearful of . We have discussed quality of life issues and certainly, I am concerned that he is having a prolonged hospitalization and estranged from his and their baby. We will attempt to manage his symptoms to the point where he can be discharged home to his family. We will defer further chemotherapy until which time he can be re-evaluated as an outpatient. He understands that he may not be a candidate for further chemotherapy if his performance status does not improve. 2. Nausea and vomiting: He is no longer vomiting. I increased his Ativan yesterday. We have added Haldol as well. Consider Zyprexa additionally if needed. He is on some steroids and has Zofran as needed as well. Reassess status post paracentesis. Consider the partial small bowel obstruction is likely contributing and a nasogastric tube may be useful temporarily. 3. Pain: Continue to titrate fentanyl patch up for better pain control. Continue OxyIR for breakthrough as tolerated. 4. Ascites: Status post paracentesis. I would suspect cytology to be positive, given his known peritoneal carcinomatosis. Follow up on those results. 5. Anemia: Multifactorial disease related and treatment related. He is status post transfusion and hemoglobin is up to 9 today. Continue to monitor. cc: MD Solitario Kumar MD
[2019-07-08] MEDS ORDERED: D10W 1,000 ML IV SCH (17:00)
--- NOTE | 2019-07-08 17:42 | PROGRESS NOTE ---
DATE: 07/08/2019 SUBJECTIVE: Patient does not feel well, nauseous, throwing up. OBJECTIVE: Vital signs: Blood pressure is 119/83, heart rate of 104, respiratory rate 18, temperature 98.4 degrees, 98% on 3 L. Cardiovascular: Regular rate and rhythm. Pulmonary: Bilateral breath sounds. Clear to auscultation. GI: Soft, nontender, nondistended. Bowel sounds positive. LABORATORY DATA: White count is 13, hemoglobin and hematocrit 9 and 28, platelets 108,000; all numbers much improved. Basic was normal except for a calcium of 6.6, total protein 2.1. Fluid was really unremarkable except for a low albumin and a SAAG greater than 1.1. PROBLEM LIST: 1. Acute hypoxic respiratory failure due to pleural effusion. He has gotten a PleurX catheter. 2. Upper gastrointestinal malignancy, unknown, peritoneum with progression of his peritoneal metastases and carcinomatosis. He also has refractory ascites which he has gotten a second tap now. 3. Klebsiella urinary tract infection. He is on antibiotics and seems to be doing okay. 4. Intractable nausea and vomiting due to partial small bowel obstruction, possibly related to the massive ascites. We are going to start him on TPN, nutrition has done that. 5. Severe protein-calorie malnutrition. We will continue to follow. 6. Disposition. Prognosis is poor. We may need to have further discussions with him about short and long-term prognosis. He is certainly not in shape for further treatment right now, but we will continue to follow. He is on Decadron, which I am not entirely sure why that is the case, but we will see how he does. Disposition is pending his clinical status, which again is poor. We may have to re-entertain hospice possibilities and things of that nature, but we will follow. cc: Solitario Huntley MD MTDD
[2019-07-08] MEDS: LIPOSYN 20% 250 ML IV SCH (17:51)
[2019-07-08] MEDS ORDERED: POTASSIUM CHLORIDE IV SCH ×8 (18:00)
[2019-07-08] MEDS ORDERED: TPN ELECTROLYTES IV SCH ×8 (18:00)
[2019-07-08] MEDS ORDERED: [UNRECOGNIZED DRUG - OTHER] IV SCH ×8 (18:00)
[2019-07-08] MEDS ORDERED: MAGNESIUM SULFATE IV SCH ×8 (18:00)
--- NOTE | 2019-07-08 19:04 | PULMONOLOGY PROGRESS NOTE ---
DATE: 07/08/2019 SUBJECTIVE: The patient is arousable to alert. He reports ongoing nausea. He did undergo a large volume paracentesis earlier today. He is having no difficulty with breathing. OBJECTIVE: Vital Signs: The patient has been afebrile for the last 24 hours. Blood pressure 119/83, heart rate 104, respiratory rate 18, oxygen saturation 98%. HEENT: Pupils are equal and reactive. Oropharynx appears clear. Neck: Is supple. Chest: Reveals crackles at the left base. Cardiac exam: S1-S2. Abdomen: Is soft with diminished bowel sounds. Extremities: Reveal 1+ tissue edema. LABORATORIES: CT scan of the abdomen and pelvis performed yesterday reveals good positioning of the PleurX catheter with near complete drainage of the left hemithorax. Severe ascites noted prior to thoracentesis today. IMPRESSION: Unfortunate male with 1. Metastatic adenocarcinoma. 2. Pleural effusion with good drainage following PleurX catheter placement. 3. Recurrent ascites. 4. Ongoing nausea without additional vomiting. PLAN: 1. Continue PleurX catheter. 2. Overall prognosis remains poor. cc: Dorian Bonilla MD
[2019-07-08] MEDS: ROCEPHIN 1 GM in NS 50 ML IV SCH (19:31)
[2019-07-09] MEDS: ZOFRAN IV PRN ×3 (01:27→18:22)
[2019-07-09] MEDS: DECADRON IV SCH ×4 (01:27→21:27)
[2019-07-09] MEDS: HALDOL IV SCH ×2 (01:27→08:46)
[2019-07-09] MEDS: ATIVAN IV PRN ×4 (05:08→21:34)
[2019-07-09] MEDS: OXY IR PO PRN ×2 (05:08→08:56)
[2019-07-09] MEDS: PHENERGAN IV PRN ×4 (05:08→21:34)
[2019-07-09] MEDS: MOVANTIK PO SCH (06:10)
[2019-07-09 07:05] LABS: ESTIMATED GFR > 60
[2019-07-09 07:10] LABS: AGAP 8; BUN 7 mg/dL (8-22); CALCIUM 7.4 mg/dL (8.8-10.2); CHLORIDE 82 mmol/L (98-107); CHOLESTEROL 86 mg/dL (0-200); COSMO 262; CREATININE 0.9 mg/dL (0.7-1.2); GLUCOSE 118 mg/dL (70-104); GOT 25 U/L (10-34); MAGNESIUM 1.5 mg/dL (1.5-2.7); PHOSPHORUS 3.4 mg/dL (2.7-4.5); POTASSIUM 3.3 mmol/L (3.5-5.1); PREALBUMIN 7.2 mg/dL (20-40); SODIUM 131 mmol/L (136-145); TCO2 41 mmol/L (25-35); TRIGLYCERIDES 138 mg/dL (39-160)
[2019-07-09] MEDS: MIRALAX PO SCH ×2 (08:46→21:27)
[2019-07-09] MEDS: REGLAN IV SCH ×2 (15:19→21:27)
[2019-07-09] MEDS: SODIUM CHLORIDE 0.9% INJ PRN (15:21)
--- NOTE | 2019-07-09 15:31 | PROGRESS NOTE ---
DATE: 07/09/2019 SUBJECTIVE: Patient has no major complaints. He is still throwing up, though. He really cannot keep anything down. OBJECTIVE: Vitals: Blood pressure 113/81, heart rate 112 respiratory rate 14, temperature 98.6 degrees, 97% on 3 L. Cardiovascular: Regular rate and rhythm. Pulmonary: Bilateral breath sounds, clear to auscultation. GI: Soft, nontender, nondistended. Bowel sounds are positive. LABORATORY DATA: Sodium is 131, potassium 3.3, calcium 7.4. Pre-albumin is only 7.2. PROBLEM LIST: 1. Most eminent problem right now is just the intractable nausea and vomiting, which is presumably due to at least a functional bowel obstruction, but he is really not improved at all. I am going to put him on some Reglan. I do not think he has a clear bowel obstruction, so I will repeat his plain films and follow. 2. Severe protein calorie malnutrition. That is because of just cancer and poor p.o. intake. He is on total parenteral nutrition. I am not sure if that is going to be a long-term goal, because right now he cannot tolerate anything p.o. 3. Klebsiella urinary tract infection. He has completed antibiotics. 4. Gastrointestinal malignancy, metastatic with peritoneal carcinomatosis and refractory ascites. He is status post tap. Seems to be doing okay. 5. Disposition. Difficult situation. He does not want to give up. He is 34 years old, but he is certainly not improving, and he is not in any form or shape or function ready for any more chemo, especially anything aggressive at this point. I really do not think he can tolerate anything aggressive, and I think Dr. Barboza has made that clear. He is just recalcitrant, understandably so, about not being able to move forward. I am not sure what else we are going to be able to offer him. It would be dangerous to assume any chemo with TPN, but I guess it is a possibility. I think the risk of infection would be high and risk of decompensated infection. We will start Reglan. He is on Haldol. He is on Decadron. He is on multiple, multiple medications, Phenergan. He is on Rocephin. He had SBP initially. Now, his fluid is much better. He does not have any more SBP. We could potentially stop his Rocephin based on the cell counts, and he has been on that for over a week. Disposition: Again, very difficult situation. We are working with Dr. Barboza and [facility]. Appreciate their constant guidance. cc: Solitario Huntley MD
[2019-07-09] MEDS ORDERED: DURAGESIC 100 MICROGM/HR PATCH TD ONE (16:02)
--- NOTE | 2019-07-09 17:11 | HEMO/ONC PROGRESS NOTE ---
DATE: 07/09/2019 CHIEF COMPLAINT: "I don't want to in the hospital." HISTORY OF PRESENT ILLNESS: Edmar continues to have ongoing pain and nausea issues. He continues to have drainage from his PleurX catheter which is hooked to low wall suction. His has come in for family meeting today to discuss goals of care and discharge planning. He is wanting to be home with his family but he is scared of dying and is anxious about being at home. He specifically has told me that he does not want to in the hospital. He is hopeful to receive more chemotherapy to continue to have longer to live. REVIEW OF SYSTEMS: Complete review of systems negative except as per HPI. PHYSICAL EXAMINATION: This is a cachectic, chronically ill-appearing man in mild distress secondary to nausea, accompanied by his at the bedside at the time of consultation.Eyes: Sclerae anicteric. Conjunctiva pale. Cardiovascular: Tachycardic but regular rhythm. No murmurs, rubs, or gallops. Pulmonary: Decreased breath sounds at left lung base. PleurX catheter in place. Abdomen: Soft, less distended, nontender. LABS: Reviewed, notable for calcium of 7.4, which is improved. The pre-albumin is 7.2, which is improved. ASSESSMENT AND PLAN: 1. Metastatic carcinoma of unknown primary: He has had rapid decline in performance status and is no longer a candidate for chemotherapy. We discussed goals of care. He has understood from the get go that his treatment was palliative intent only. Understandably, he has a great fear of his impending . We discussed ways to manage his anxiety and his symptoms. We discussed hospice care. I have explained to him that even though he wishes to continue on the chemotherapy that I cannot in good conscience give him chemotherapy in his debilitated state. I have recommended hospice care for him, and with his 's support he is agreeable to the same. We will make arrangements to hopefully have him discharged later this week home on hospice with full support. I will continue to provide care via hospice. Questions were answered to their satisfaction. 2. Nausea: Intractable. Continue current antiemetics. I will add Marinol at this time. 3. Pain: Inadequately controlled. I will increase his fentanyl today. Follow up via hospice as an outpatient. cc: MD Solitario Kumar MD
[2019-07-09] MEDS ORDERED: MAGNESIUM SULFATE IV SCH ×8 (18:00)
[2019-07-09] MEDS ORDERED: [UNRECOGNIZED DRUG - OTHER] IV SCH ×8 (18:00)
[2019-07-09] MEDS ORDERED: POTASSIUM CHLORIDE IV SCH ×8 (18:00)
[2019-07-09] MEDS ORDERED: TPN ELECTROLYTES IV SCH ×8 (18:00)
[2019-07-09] MEDS: LIPOSYN 20% 250 ML IV SCH (18:16)
[2019-07-09] MEDS: MARINOL PO SCH (21:27)
[2019-07-10] MEDS: PHENERGAN IV PRN ×3 (04:55→13:47)
[2019-07-10] MEDS: ATIVAN IV PRN ×3 (04:55→13:48)
[2019-07-10 06:16] LABS: ESTIMATED GFR > 60
[2019-07-10 06:18] LABS: AGAP 7; BUN 7 mg/dL (8-22); CHLORIDE 89 mmol/L (98-107); COSMO 269; CREATININE 0.7 mg/dL (0.7-1.2); GLUCOSE 110 mg/dL (70-104); MAGNESIUM 1.4 mg/dL (1.5-2.7); PHOSPHORUS 3.3 mg/dL (2.7-4.5); POTASSIUM 3.2 mmol/L (3.5-5.1); SODIUM 135 mmol/L (136-145); TCO2 39 mmol/L (25-35)
[2019-07-10] MEDS: MOVANTIK PO SCH (06:20)
[2019-07-10] MEDS: REGLAN IV SCH ×2 (06:20→13:54)
[2019-07-10] MEDS: DECADRON IV SCH ×2 (06:20→13:52)
--- NOTE | 2019-07-10 08:02 | Diag Imaging Result Doc PS360 ---
EXAM: ABDOMEN FLAT/UPRIGHT 07/10/2019 HISTORY: sbo TECHNIQUE: Flat and upright abdomen COMMENT: There are distended small bowel loops in the left midabdomen. There is a generalized paucity bowel gas otherwise. There is no evidence of organomegaly or mass. The possibility of ascites cannot be excluded. Compared to 07/06/2019 the gaseous dilatation of the small bowel loops appears slightly worse. IMPRESSION: Small bowel obstruction and ascites. Electronically signed by Ady Mayfield 07/10/2019 8:00 AM
[2019-07-10] MEDS: MARINOL PO SCH (09:19)
[2019-07-10] MEDS: MIRALAX PO SCH (09:19)
[2019-07-10] MEDS: SODIUM CHLORIDE 0.9% INJ PRN ×2 (09:19→13:48)
[2019-07-10 11:55] VITALS: BP 104/68
--- NOTE | 2019-07-10 13:00 | DISCHARGE SUMMARY ---
ADMISSION DATE: 06/25/2019 DISCHARGE DATE: 07/10/2019 HISTORY OF PRESENT ILLNESS: this is a 34-year-old who has no primary care physician, but followed by Dr. Elise Barboza, presented with shortness of breath, lower abdominal pain, nausea, vomiting that was bilious with no bowel movement in the past 8 to 10 days. He has known stage IV gastric cancer. A 34-year-old male presented to [facility] with shortness of breath, lower abdominal pain, nausea, vomiting which is bilious. States that last bowel movement was about 10 days ago. He does take Brixey for pain, followed by Dr. Elise Barboza for stage IV gastric cancer. Last chemo treatment was a week before. His workup showed white blood cell count 3110, hemoglobin was 4.8, hematocrit 15, platelets were 16,000. His CT of the abdomen and pelvis showed large left pleural fluid collection and pulmonary edema versus right middle lobe pneumonia, massive ascites that I suspect was malignant, and partial small-bowel obstruction versus ileus. Head CT showed small petechial hemorrhage at the right frontal lobe. ER physician attempted to transfer to [facility] felt he should stay here, talk to the neurosurgeon. ADMISSION DIAGNOSES: 1. Left large pleural effusion. 2. Partial small-bowel obstruction versus ileus. 3. Pancytopenia with anemia noted. 4. Malignant ascites. 5. Hypomagnesemia. 6. Right middle lobe pneumonia. 7. Small petechial hemorrhage, right frontal lobe. 8. Stage IV gastric cancer. HOSPITAL COURSE: 1. The patient followed by Pulmonary with acute hypoxemic respiratory failure, large left-sided pleural effusion, leukopenia, severe anemia, thrombocytopenia, metastatic gastric cancer. They believed he would benefit from a PleurX catheter so this was placed on the left for his hemothorax, and he had a paracentesis on 06/26/2019, which was successful uncomplicated ultrasound-guided thoracentesis; 8.9 L were aspirated. 2. Dr. Barboza followed along metastatic carcinoma of unknown primary with suspected gastric origin, currently undergoing chemotherapy, recent does of Taxol and carboplatin on 06/18/2019 and the course treatment held while in the hospital, profound cytopenia believed to be secondary to his chemotherapy. He also has pneumonia and small-bowel obstruction, so they did give him a transfusion of packed red blood cells. 3. Pneumonia. Continued antibiotics. 4. Malignant ascites. Considered therapeutic paracentesis during the hospitalization. 5. Possible partial small-bowel obstruction versus ileus. 6. Small petechial hemorrhage in the right frontal lobe. Did contact Neurosurgery and they did repeat a CT scan. Thoracentesis was repeated on 06/27/2019 and got 1500 mL of fluid off. He had another paracentesis on 07/08/2019, successful, took off 5.2 L, so the plan was he wanted to go home with hospice. His metastatic carcinoma of unknown primary, rapid decline in performance status with no longer a candidate for chemotherapy and so go home with palliative treatment, arranging for that, and he has his PleurX chest tube in and arrange for that to be drained as well. DISCHARGE ORDERS: He is getting Decadron 2 g IV q.8, we could change that to taking by mouth. He is getting Marinol 2.5 mg p.o. b.i.d., Movantik 12.5 mg p.o. daily, MiraLAX 17 g p.o. b.i.d., and he has Phenergan for nausea 12.5 mg q.4 hours. cc: Last Hendricks MD
--- NOTE | 2019-07-11 13:01 | HEMO/ONC PROGRESS NOTE ---
DATE: 07/07/2019 SUBJECTIVE: Edmar today is quite nauseous. He also reports that he is having increasing anxiety. In general, he does not feel well at this time. OBJECTIVE: Vital Signs: Temperature 99.2 degrees, heart rate 116, respirations 15, blood pressure 108/76, and O2 saturation 100% on 3 liters nasal cannula. General: On physical exam, this is a thin chronically ill-appearing young male who is in acute distress secondary to nausea and vomiting and some pain. Cardiovascular: Tachycardia. Respiratory: Normal respiratory effort at this time. Gastrointestinal: Abdomen is slightly distended with ascites. Extremities: He does have edema as well. Neurologic: Patient is alert and oriented with no obvious focal motor deficits noted. ASSESSMENT AND PLAN: 1. Metastatic carcinoma of unknown primary, though suspect he has a gastric origin. The patient's chemotherapy is currently on hold. He is not really improving at this time. He may be benefit from further scanning giving his ongoing intractable nausea and vomiting. We will continue to follow along. He is in not in a position currently that he could participate in chemotherapy. 2. Intractable nausea and vomiting. Agree with doing a scan to evaluate for possible obstruction. Continue current nausea medications. 3. Pain. Not well managed. We will plan to increase his fentanyl patch to 50 mcg every 72 hours. 4. Anxiety, worsening. The patient not able to tolerate anything by mouth. We will plan to increase his Ativan to 1 mg. Hopefully, this will also help some with his nausea and vomiting. 5. Pleural effusion. He is status post PleurX catheter placement. Continue to drain as needed. 6. Disposition. Patient has a poor prognosis. However, the hope is to try to get him well enough to get him home and possibly back to our office to discuss possible treatments. Dictated by MICHAEL Castrejon for Elise Barboza MD cc: Elise Barboza MD
--- NOTE | 2019-07-11 13:07 | HEMO/ONC PROGRESS NOTE ---
DATE: 07/10/2019 Mr. Huitron is going home on hospice today. He has no acute complaints at this time. Compared to the last time I saw him, the patient looks like he is feeling a little bit better. He did ask that I refill his Phenergan and I have sent a refill to his pharmacy through our in-office EMR system. I let the patient know that he can contact us at any time with any questions and that we are here for him and his family. He verbalized understanding. Dictated by MICHAEL Castrejon for Elise Barboza MD cc: Elise Barboza MD
== END 2019-07-10 15:54 | disposition hospice, home (50) | DRG 374 ==
LOC: SUPCPDRO → ED 08:17 → SUATTDRO 12:53 → 2N 12:53
PROVIDERS: ATTEND Emergency Medicine

== ENCOUNTER 2019-07-13 10:13 | Inpatient (IN) ==
[~2019-07-13 10:13] MED LIST: ATIVAN IM ONE
[2019-07-13] MEDS ORDERED: HALDOL IM PRN (10:36)
[2019-07-13] MEDS ORDERED: NS 1,000 ML IV ONE ×2 (10:51→11:12)
--- NOTE | 2019-07-13 10:51 | PROVIDER DOCUMENTATION ---
HPI-Neurological Disorder - General Chief Complaint: Seizure Stated Complaint: seizure Time Seen by Provider: 07/13/19 10:13 Source: patient (patient re-interviewed at 1040 when he became alert to person, place, and situation), family ( & mother), EMS Allergies/Adverse Reactions: Patient Allergies Allergy/AdvReac Type Severity Reaction Status Date / Time doxycycline Allergy Severe ANAPHYLAXIS Verified 07/13/19 14:02 cat gut sutures Allergy Severe infection Uncoded 07/13/19 14:02 @ site Home Medications: Home Medication List Medication Instructions Recorded Confirmed Last Taken Type Hydrocodone/Acetaminophen [Ewing 10 mg PO Q4HR PRN 11/20/18 07/13/19 06/24/19 History 10-325 Tablet] Morphine E.r. [Ms Contin] 30 mg PO Q8H 11/20/18 07/13/19 06/24/19 History Promethazine [Phenergan] 25 mg PO Q6H PRN PRN 04/09/19 07/13/19 06/20/19 History Docusate Sodium [Colace] 100 mg PO DAILY 06/25/19 07/13/19 06/20/19 History Esomeprazole Magnesium [Nexium] 40 mg PO DAILY 07/13/19 07/13/19 Unknown History Haloperidol Lactate 0.5 ml PO Q4H PRN 07/13/19 07/13/19 Unknown History Lorazepam [Ativan] 1 mg PO Q4H PRN 07/13/19 07/13/19 Unknown History Morphine Sulfate 5 mg PO Q3H PRN 07/13/19 07/13/19 Unknown History Trazodone [Desyrel] 1 tab PO HS 07/13/19 07/13/19 Unknown History - History of Present Illness-Neuro Nature of Presenting Problem: Patient is a 34yo M who presents, via EMS, after a witnessed seizure which occurred at 0845 this morning. Patient's reports approximately 10 minutes of seizure-like activity. When EMS arrived on scene, patient was not actively seizing, and did not appear to be post-ictal. During transport to ED, EMS reports patient had a tonic-clonic seizure at approximately 1006 which lasted less than 5 minutes and ended without intervention. Report Zofran was administered en route for nausea. Upon arrival to the ED, patient is disoriented, agitated, and is exhibiting incomprehensible speech. Per EMS, patient has Stage IV gastric cancer and was recently placed on Hospice. Patient's consulted who reports patient was admitted to from 06/24-07/09 for PNA, pleural effusion, intestinal obstruction, and paracentesis. reports patient was discharged home on Hospice d/t poor prognosis from Oncology. reports patient had 1 seizure 10 years ago, reportedly drug induced. Pupils equal at 4mm bilaterally, however appear mildly sluggish. Cachexic and dehydrated in appearance. Patient poor historian d/t post-ictal state upon presentation. Per chart review, while patient was admitted a small R intraparenchymal parietal hemorrhage was found, however patient did not exhibit any neurological s/sx during admission. Patient had Pleura-X catheter and gastric tube placed while admitted. Severity: reports: moderate Onset/Duration: reports: just prior to arrival Timing: reports: still present Context: reports: seizure activity Character of Altered Mental Status: reports: disoriented, agitated Any recent trauma/injury?: reports: none Cognitive Baseline: alert, oriented x3 Gait Baseline: walks without assistance Associated Symptoms: reports: nausea, seizures, vomiting Similar Symptoms Previously?: Yes (1 seizure episode 10 years ago drug induced) Recently seen or treated by another doctor?: Yes (admitted to 06/24-07/09) - Seizure First time to have a seizure?: No (1 episode 10 years ago drug induced) Witnessed seizure?: Yes How many seizure episodes?: 2 (1st witnessed by ; 2nd by EMS) Duration of episode? (mins): 10 (reported per ) Approximate time seizures began?: 08:45 Approximate time of the last seizure?: 10:06 (en route to ED; lasted <5 minutes and resolved w/o intervention) Episode Frequency: other (history of 1 seizure 10 years ago drug induced) Status Epilepticus: No Preceding symptoms/context:: recent illness/fever (Patient has Stage IV stomach cancer; also was recently admitted for PNA, pleural effusion, and malignant ascites) Character of Seizure: reports: lost consciousness, generalized shaking all over Post-ictal Symptoms: reports: confusion, speech difficulty Seizure related injury: bit tongue Review of Systems - Adult - REVIEW OF SYSTEMS - ADULT ROS:: limited per condition (patient re-interviewed at 1040 when alert to person/place/situation; patient's also interviewed) Constitutional: denies: chills, fever Eyes: reports: no symptoms reported Ears, Nose, Mouth & Throat: denies: ear pain, throat pain Cardiovascular: denies: chest pain, palpitations Respiratory: reports: see HPI, other (recently admitted to hospital for PNA). denies: shortness of breath Gastrointestinal: reports: see HPI, nausea, poor appetite, vomiting Genitourinary: reports: no symptoms reported Musculoskeletal: reports: no symptoms reported Integumentary: reports: no symptoms reported Neurological: reports: see HPI, seizure Psychiatric: reports: no symptoms reported Endocrine: reports: no symptoms reported Hematologic/Lymphatic: reports: see HPI, low blood count, transfusions, other (Stage IV stomach cancer) Past History - Adult - PAST MEDICAL HISTORY-ADULT Review of Records: reports: Old Records Reviewed, Nursing Assessment Review, Medications Reviewed, Social history reviewed & non-contributory. 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 Cameron) - PRIOR HOSPITALIZATIONS Hospitalization Comment: Admitted from 06/24-07/09 for PNA, pleural effusion, ascites, obstruction - IMMUNIZATION STATUS Childhood Immunizations: UTD, See Nurse Assessment Flu Vaccine: See Nurse Assessment - FAMILY HISTORY Family History: reviewed, not pertinent - SOCIAL HISTORY Smoking: cigarettes Provider spent 3-5 mins advising pt. on dangers of tobacco.: Discussed manners to quit use, and f/u contacts for add'l counseling. Substance Use: none presently/history of abuse (IV drug abuse) Living Situation: family Physical Exam- Neurological - Physical Exam-Neuro Exam Limited by: Disorientation/post-ictal state upon initial examination Initial Vital Signs Reviewed: Yes General Appearance: moderate distress, cachetic, combative. negative: lethargic Eye Exam: bilateral eye: normal inspection, EOMI, abnormal pupil (4mm equal; round; mildly sluggish to light) HENMT: normocephalic/atraumatic. negative: moist mucous membranes (ry), angioedema Head Injury: no evidence of injury. negative: contusions, raccoon eyes Neck: full range of motion, supple, normal inspection Respiratory: lungs clear, normal breath sounds, no respiratory distress, no accessory muscle use. negative: accessory muscle use, crackles, rales, rhonchi, stridor, wheezing, retractions, splinting, decreased rate, increased rate Cardiovascular: no gallop, tachycardia (160; patient combative and unable to maintain still position for accurate measurement) Abdominal Exam: normal bowel sounds, non tender, soft, other (gastric tube noted to LLQ). 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 negative: abnormal eye position, abnormal pupil position, facial asymmetry Motor/Sensory: no motor deficit Neurologic: other (incomprehensible speech; postictal state; appropriate ROM x4 extremities as patient is combative). negative: EOM palsy Integumentary: normal color, warm/dry, pallor. negative: normal turgor (tinting of skin), cyanosis, jaundice Psych/Mental Status: disoriented x 3, other (combative) - Glascow Coma Scale Best Eye Response: (4) open spontaneously Best Verbal Response: (2) incomprehsible sounds Best Motor Response: (5) localizes to pain Total Glascow Score: 11 (initial 1016; repeat 1040 GCS 15) Progress - PLAN OF CARE/RESULTS Progress/Plan/Lab Results: Vital Signs - 8 hr 07/13/19 12:30 Pulse Rate 124 H Respiratory Rate 20 Blood Pressure 105/81 O2 Sat by Pulse Oximetry 100 Laboratory Results - last 24 hr 07/13/19 07/13/19 07/13/19 10:34 10:34 10:34 WBC 18.92 H RBC 3.30 L Hgb 10.7 L Hct 32.2 L MCV 97.6 MCH 32.4 H MCHC 33.2 RDW Std Deviation 18.1 H Plt Count 230 MPV 10.1 Neut % (Auto) 71.6 Lymph % (Auto) 11.4 L [place] % (Auto) 16.4 H Eos % (Auto) 0.5 Baso % (Auto) 0.1 Neut # (Auto) 13.53 H Lymph # (Auto) 2.16 [place] # (Auto) 3.11 H Eos # (Auto) 0.10 Baso # (Auto) 0.02 Segmented Neutrophils 60 Band Neutrophils 6 H Lymphocytes 13 L Monocytes 18 H Atypical Lymphocytes 3.0 PT INR PTT (Actin FS) Sodium 126 L Potassium 3.5 Chloride 75 L Carbon Dioxide 36 H Anion Gap 15 BUN 15 Creatinine 1.3 H Estimated GFR/1.73 m2 > 60 BUN/Creatinine Ratio 12 Glucose 119 H Calculated Osmolality 255 Calcium 7.9 L Magnesium Total Bilirubin 0.56 AST 36 H ALT 50 H Alkaline Phosphatase 159 H Creatine Kinase 19 L Troponin T High Sens 19 Total Protein 6.5 Albumin 2.9 L Globulin 3.6 Albumin/Globulin Ratio 0.8 Plasma Lactate Plasma/Serum Ethyl Alc 07/13/19 07/13/19 07/13/19 10:34 10:34 10:34 WBC RBC Hgb Hct MCV MCH MCHC RDW Std Deviation Plt Count MPV Neut % (Auto) Lymph % (Auto) [place] % (Auto) Eos % (Auto) Baso % (Auto) Neut # (Auto) Lymph # (Auto) [place] # (Auto) Eos # (Auto) Baso # (Auto) Segmented Neutrophils Band Neutrophils Lymphocytes Monocytes Atypical Lymphocytes PT 13.1 INR 0.98 PTT (Actin FS) 30.7 Sodium Potassium Chloride Carbon Dioxide Anion Gap BUN Creatinine Estimated GFR/1.73 m2 BUN/Creatinine Ratio Glucose Calculated Osmolality Calcium Magnesium 1.2 L Total Bilirubin AST ALT Alkaline Phosphatase Creatine Kinase Troponin T High Sens Total Protein Albumin Globulin Albumin/Globulin Ratio Plasma Lactate 4.8 H* Plasma/Serum Ethyl Alc 07/13/19 10:34 WBC RBC Hgb Hct MCV MCH MCHC RDW Std Deviation Plt Count MPV Neut % (Auto) Lymph % (Auto) [place] % (Auto) Eos % (Auto) Baso % (Auto) Neut # (Auto) Lymph # (Auto) [place] # (Auto) Eos # (Auto) Baso # (Auto) Segmented Neutrophils Band Neutrophils Lymphocytes Monocytes Atypical Lymphocytes PT INR PTT (Actin FS) Sodium Potassium Chloride Carbon Dioxide Anion Gap BUN Creatinine Estimated GFR/1.73 m2 BUN/Creatinine Ratio Glucose Calculated Osmolality Calcium Magnesium Total Bilirubin AST ALT Alkaline Phosphatase Creatine Kinase Troponin T High Sens Total Protein Albumin Globulin Albumin/Globulin Ratio Plasma Lactate Plasma/Serum Ethyl Alc Orders Category Date Time Status Admit - [facility] Routine AdmDCTranf 07/13/19 13:08 Active Apply Mechanical Device [QM] ORDERED Care 07/13/19 15:19 Active Cardiac Monitoring NOW Care 07/13/19 10:29 Completed Finger Stick Blood Sugar (ED) DIRECTED Care 07/13/19 10:16 Completed IV Insertion NOW Care 07/13/19 10:29 Completed Intake and Output-Strict ORDERED Care 07/13/19 11:14 Active NEWS Score >or=5:Order NEWS Bundle S.O. NOW Care 07/13/19 10:29 Completed Notify Physician if: ORDERED Care 07/13/19 11:14 Active Notify Provider of NEWS Score NOW Care 07/13/19 10:29 Completed Nursing- Assist w/ IS as order ORDERED Care 07/13/19 15:19 Active Nursing- MD Consult Request ROUTINE Care 07/13/19 13:08 Active Nursing- Obtain EKG ONCE Care 07/13/19 10:36 Completed Oxygen Therapy- ED Nursing DIRECTED Care 07/13/19 10:43 Completed Resuscitation Status Routine Care 07/13/19 13:03 Ordered Saline Loc NOW Care 07/13/19 10:16 Completed Seizure Precautions ROUTINE Care 07/13/19 10:16 Active Sepsis Bolus Completion ORDERED Care 07/13/19 11:14 Active Vital Signs Order Q 4-HR ASSESS Care 07/13/19 15:19 Completed Z-Document. for Tele Applied ORDERED Care 07/13/19 15:19 Active Dietitian Consult Routine Cons 07/13/19 13:08 Active Physician/Provider Consults Routine Cons 07/14/19 08:00 Ordered Social Service Consult Routine Cons 07/13/19 15:19 Active Full Liquid Diet Diet 07/13/19 13:10 Active CHEST-1 VIEW [RAD] Stat Exams 07/13/19 10:[address] HEAD W/O CONTRAST [CT] Stat Exams 07/13/19 10:10 Completed MRA BRAIN W/O CONTRAST [MRI] Routine Exams 07/14/19 07:00 Ordered MRI BRAIN W/WO CONTRAST [MRI] Routine Exams 07/14/19 07:00 Ordered ALCOHOL BLOOD Stat Lab 07/13/19 10:34 Completed BLOOD CULTURE [BLDCUL] Stat Lab 07/13/19 11:20 Results CBC WITH DIFF [HEME] Q24H Lab 07/14/19 06:00 Ordered CBC WITH DIFF [HEME] Q24H Lab 07/15/19 06:00 Ordered CBC WITH DIFF [HEME] Q24H Lab 07/16/19 06:00 Ordered CBC WITH DIFF [HEME] Stat Lab 07/13/19 10:34 Completed CK PROFILE [SP CHEM] Stat Lab 07/13/19 10:34 Completed COMPREHENSIVE METABOLIC PANEL [CHEM] Q24H Lab 07/14/19 06:00 Ordered COMPREHENSIVE METABOLIC PANEL [CHEM] Q24H Lab 07/15/19 06:00 Ordered COMPREHENSIVE METABOLIC PANEL [CHEM] Q24H Lab 07/16/19 06:00 Ordered COMPREHENSIVE METABOLIC PANEL [CHEM] Stat Lab 07/13/19 10:34 Completed LACTATE, PLASMA [CHEM] Lab 07/13/19 13:46 Completed LACTATE, PLASMA [CHEM] Lab 07/13/19 16:30 Completed LACTATE, PLASMA [CHEM] Q3H Lab 07/13/19 10:34 Completed MAGNESIUM [CHEM] Q24H Lab 07/14/19 06:00 Ordered MAGNESIUM [CHEM] Q24H Lab 07/15/19 06:00 Ordered MAGNESIUM [CHEM] Q24H Lab 07/16/19 06:00 Ordered MAGNESIUM [CHEM] Stat Lab 07/13/19 10:34 Completed PROTIME WITH INR [COAG] Stat Lab 07/13/19 10:34 Completed PTT [COAG] Stat Lab 07/13/19 10:34 Completed TROPONIN T HIGH SENSITIVITY Stat Lab 07/13/19 10:34 Completed URINALYSIS W/POSS RFLX CULT [URINALYSIS] Stat Lab 07/13/19 10:29 Uncollected URINE DRUG SCREEN Stat Lab 07/13/19 10:16 Uncollected 0.9% Sodium Chloride Inj [Ns] 1,000 ml Med 07/13/19 13:15 Active IV 85 mls/hr 0.9% Sodium Chloride Inj [Ns] 1,000 ml Med 07/13/19 10:51 Discontinued IV 999 mls/hr 0.9% Sodium Chloride Inj [Ns] 1,000 ml Med 07/13/19 11:12 Discontinued IV 999 mls/hr 0.9% Sodium Chloride Inj [Ns] 500 ml Med 07/13/19 11:50 Discontinued IV 999 mls/hr Acetaminophen [Tylenol] Med 07/13/19 13:08 Active 650 mg PO Q6H PRN PRN CefEPIME [Maxipime] 1 gm Med 07/13/19 13:15 Active 0.9% Sodium Chloride Inj [Ns] 50 ml IV Q12H Haloperidol Lactate [Haldol] Med 07/13/19 10:36 Discontinued 5 mg IM Q4H PRN PRN Ipratropium [place] Neb [Atrovent Neb] Med 07/13/19 16:00 Active 0.5 mg INH RTQ6H.WA Levalbuterol Neb [Xopenex Neb] Med 07/13/19 16:00 Active 0.63 mg INH RTQ6H.WA Levetiracetam [Keppra Liquid] Med 07/13/19 13:15 Active 500 mg PO BID Lorazepam [Ativan] Med 07/13/19 10:13 Discontinued 2 mg IM NOW ONE Magnesium Sulfate 1 gm/D5w Med 07/13/19 12:08 Discontinued 1 gm in 100 ml IV NOW Piperacillin/Tazobactam [Zosyn] 3.375 gm Med 07/13/19 11:15 Discontinued 0.9% Sodium Chloride Inj [Ns] 50 ml IV Q6H Promethazine [Phenergan] Med 07/13/19 12:04 Discontinued 25 mg IV NOW ONE Promethazine [Phenergan] Med 07/13/19 13:08 Active 25 mg IV Q6H PRN PRN Sodium Chloride 0.9% Med 07/13/19 12:04 Discontinued 10 ml INJ NOW ONE Sodium Chloride 0.9% Med 07/13/19 13:08 Active 10 ml INJ PRN PRN Sodium Chloride 0.9% Neb [Ns Neb] Med 07/13/19 13:15 Active 5 ml INH DIRECTED Vancomycin 1 gm/Ns Med 07/13/19 11:36 Discontinued 1 gm in 250 ml IV NOW Aerosol Treatments Routine Oth 07/13/19 13:12 Completed Aerosol Treatments Stat Oth 07/13/19 13:12 Completed Incentive Spirometer Routine Ot 07/13/19 15:19 Completed O2 Per Protocol Stat [facility] 07/13/19 10:29 Completed Oxygen Device Routine [facility] 07/13/19 13:08 Completed Pulse Oximetry Routine [facility] 07/13/19 13:08 Completed Seizure, New Onset Stat [facility] 07/13/19 10:56 Ordered Telemetry [OM.EQ] Routine Ot 07/13/19 15:19 Active EKG [EKG] Stat Ther 07/13/19 10:36 Ordered Swallow Evaluation [OM.SPT] Routine Ther 07/13/19 13:10 Active Transfer/Admit Order [TRANSFER] Routine Transfer 07/13/19 13:02 Completed 1026: Initial HR 160bpm. Patient combative. Also appears hypovolemic. 1040: Patient no longer post-ictal. Patient re-interviewed. 1157: Labs demonstrate hyponatremia, hypomagnesemia, leukocytosis, elevated lactate and stable anemia. Patient had 2 seizures today, likely contributing to elevated lactate. Patient also received steroids while admitted to the hospital, contributing to leukocytosis. However, patient prophylactically covered with IV Zosyn d/t being hospitalized 3 days prior w/ PNA. D/t elevated lactate, patient meets criteria for severe sepsis protocol, although likely cause is non- infectious. Patient is hypovolemic/dehydrated and will benefit from IV fluid boluses. CT head reveals resolution of intraparenchymal hemorrhage. Lab results, plan of care, and need for admission discussed with patient who agrees with and verbalizes understanding. Plan of care discussed and formulated in conjunction with Dr. Rico. Result Diagrams: 07/13/19 10:34 07/13/19 10:34 - REASSESSMENT Reassessment #1 Time Reassessed: 10:40 Status: improving Reassessment Comment: Patient no longer post-ictal Reassessment #2 Time Reassessed: 11:52 Status: improving Reassessment Comment: HR decreased to 127; IVF bolus infusing - EKG 1 Time of EKG reading by physician:: 10:41 EKG Read and Signed by:: Kiran Rico EKG Interpretation (*Must complete 3 of following elements*): Abnormal Rate: 147 Rhythm: ST [place]: normal QRS: normal IN Interval: normal ST Wave: non-specific ST changes - XRAY 1 XRAY Study: Chest Impression: See EMR Report ([facility] - [address], [address], [place] [address] [place] [id number] Department of Imaging Patient: MARQUES MOSLEYADM Date: 07/13/19MR#: [id number] : 1985ADM Status: PRE ERAcct#: [id number] Age/Sex: 34/MRoom/Bed: Loc: ED Ordering Physician: Guerita العراقي Family Physician: Reason for Procedure: Seizure Signed EXAM: CHEST-1 VIEW 07/13/2019 HISTORY: Seizure TECHNIQUE: AP portable upright at 1038 COMMENT: There is loculated pleural fluid in the left costophrenic angle which appears slightly more voluminous than on 07/06/2019. There is some subsegmental atelectasis in the left base. The lungs are generally slightly better expanded than on 07/06/2019. IMPRESSION: Loculated left pleural effusion and basilar atelectasis. Electronically signed by Ady Mayfield 07/13/2019 10:47 AM 07/13/19 1047 Interpreting Physician: Ady Mayfield MD Dictated Date/Time: 07/13/19 1046 cc: Guerita العراقي;) - CT/MRI 1 CT Study: Head Impression: See EMR Report ([facility] - [address], [address], [place] [address] [place] [id number] Department of Imaging Patient: MARQUES MOSLEYADM Date: 07/13/19MR#: [id number] : 1985ADM Status: REG ERAcct#: [id number] Age/Sex: 34/MRoom/Bed: Loc: ED Ordering Physician: Guerita العراقي Family Physician: None,PCP Reason for Procedure: New onset seizure; Stage IV stomach cancer Signed EXAM: CT HEAD W/O CONTRAST 07/13/2019 HISTORY: New onset seizure; Stage IV stomach cancer TECHNIQUE: This exam was performed using automated exposure control, adjustment of mA or kV according to patient size, and/or use of iterative reconstruction technique. COMMENT: The current examination is compared with the exam of 06/26/2019 there our some cortical calcifications present in the frontal lobes bilaterally which were also apparently present previously. There is no evidence of mass effect, bleed, or abnormal extra-axial fluid collection. The paranasal sinuses are clear and the calvarium is intact. IMPRESSION: Stable CT of the head. Electronically signed by Ady Mayfield 07/13/2019 11:33 AM 07/13/19 1133 Interpreting Physician: Ady Mayfield MD Dictated Date/Time: 07/13/19 1131 cc: Guerita العراقي; None,PCP) - CONSULTS/PCP/HOSPITALIST Notification #1 *Consult/PCP/Hospitalist*: Anastasia Laureano Time Discussed: 12:00 Reason/Comments: Seizure; hyponatremia; hypomagnesemia; dehydration; n/v Consult Disposition: Will see in ED, Admit (To Dr. Hendricks) Departure - Departure Date of Disposition Decision: 07/13/19 Time of Disposition Decision: 12:00 DIAGNOSIS: Seizure, Hyponatremia, Pleural effusion on left, Hypomagnesemia, Dehydration, Abdominal malignancy, Malignant cachexia Nausea & vomiting Qualifiers: Vomiting type: unspecified Vomiting Intractability: unspecified Qualified Code(s): R11.2 - Nausea with vomiting, unspecified Disposition: ADMITTED INPATIENT Certified Medical Emergency: Emergent Condition: Stable - Critical Care Note This patient required my direct & personal management of CC.: No Attestation - Physician/ TRAN Attestation Patient care was provided by Advanced Practice Provider:: Yes Advanced Practice Provider:: Guerita العراقي Advanced Practice Provider documentation review:: The Mid-level provider documentation, treatment plan and medical decision making was reviewed by the physician who agrees with all treatment and medical decision making by the MLP. The physician spent face to face time with patient:: No Advanced Practice Provider documentation review:: Supervising physician onsite and consulted in the evaluation and care of this patient. The physician did not have a face to face encounter with the patient. Sepsis: Tissue Perfusion Assmt - Physical Exam Assessment Date: 07/13/19 Time Assessment Initialized: 11:52 Vital Signs: Last Vital Signs Temp 98.2 F 07/13/19 19:40 Pulse 114 H 07/13/19 19:40 Resp 17 07/13/19 19:40 BP 102/78 07/13/19 19:40 Pulse Ox 96 07/13/19 19:40 Height 6 ft Weight 160 lb Lung Sounds: lungs clear Heart Sounds: Regular Capillary Refill Time: Less Than 2 Seconds Peripheral Pulse Evaluation: radial (R): 2+, radial (L): 2+, posterior tibialis (R): 2+, posterior tibialis (L): 2+ Skin Exam: pink - Alternative Fluid Bolus Bolus Option: Alternative Fluid Resuscitation Bolus for morbidly obese patients with a BMI >30, Refer to [facility] [place] Body Weight Chart for Reference. Is patient's BMI >30?: No Patient's BMI: 21.7 Fluid Bolus dosed using the [place] Body Weight Chart: Yes Patient's [place] Body Weight: 77.6 - Impression Impression: Tissue Perfusion Adequate - Plan Plan: No Change
[2019-07-13 10:59] LABS: INR 0.98; PROTIME 13.1 Seconds (11.0-16.0)
[2019-07-13 11:00] LABS: PTT 30.7 Seconds (22.3-41.8)
[2019-07-13 11:07] LABS: ESTIMATED GFR > 60
[2019-07-13 11:10] LABS: AGAP 15; ALB/GLOB RATIO 0.8; ALBUMIN 2.9 g/dL (3.5-5.0); ALKALINE PHOSPHATASE 159 U/L (32-122); BUN 15 mg/dL (8-22); CALCIUM 7.9 mg/dL (8.8-10.2); CHLORIDE 75 mmol/L (98-107); CK PROFILE 19 U/L (24-204); COSMO 255; CREATININE 1.3 mg/dL (0.7-1.2); GLUCOSE 119 mg/dL (70-104); GOT 36 U/L (10-34); GPT 50 U/L (10-44); POTASSIUM 3.5 mmol/L (3.5-5.1); SODIUM 126 mmol/L (136-145); TCO2 36 mmol/L (25-35); TOTAL BILIRUBIN 0.56 mg/dL (0.20-1.00); TOTAL PROTEIN 6.5 g/dL (6.3-8.3)
[2019-07-13] MEDS ORDERED: ZOSYN 3.375 GM in NS 50 ML IV SCH (11:15)
[2019-07-13 11:24] LABS: BASO# 0.02 X1000 (0.0-0.2); BASO% 0.1 % (0.0-0.8); EOS% 0.5 % (0.0-10.0); HEMATOCRIT 32.2 % (42.0-52.0); HEMOGLOBIN 10.7 g/dL (14.0-18.0); LYMPH# 2.16 X1000 (1.2-3.4); LYMPH% 11.4 % (20.5-51.1); MCH 32.4 PG (27-31); MCHC 33.2 g/dL (33-37); MCV 97.6 FL (81-99); MONO# 3.11 X1000 (0.11-0.59); MONO% 16.4 % (1.7-9.3); MPV 10.1 FL (7.4-10.4); NEUT# 13.53 X1000 (1.4-6.5); NEUT% 71.6 % (42.2-75.2); PLT 230 X1000 (130-400); RDW 18.1 % (11.5-14.5); WBC 18.92 X1000 (4.8-10.8)
--- NOTE | 2019-07-13 11:35 | Diag Imaging Result Doc PS360 ---
EXAM: CT HEAD W/O CONTRAST 07/13/2019 HISTORY: New onset seizure; Stage IV stomach cancer TECHNIQUE: This exam was performed using automated exposure control, adjustment of mA or kV according to patient size, and/or use of iterative reconstruction technique. COMMENT: The current examination is compared with the exam of 06/26/2019 there our some cortical calcifications present in the frontal lobes bilaterally which were also apparently present previously. There is no evidence of mass effect, bleed, or abnormal extra-axial fluid collection. The paranasal sinuses are clear and the calvarium is intact. IMPRESSION: Stable CT of the head. Electronically signed by Ady Mayfield 07/13/2019 11:33 AM
[2019-07-13] MEDS ORDERED: VANCOMYCIN 1 GM/NS 1 GM/250 ML IVPB IV ONE (11:36)
[2019-07-13] MEDS ORDERED: NS 500 ML IV ONE (11:50)
[2019-07-13] MEDS ORDERED: PHENERGAN IV ONE (12:04)
[2019-07-13] MEDS ORDERED: SODIUM CHLORIDE 0.9% INJ ONE (12:04)
[2019-07-13] MEDS ORDERED: MAGNESIUM SULFATE 1 GM/D5W 1 GM/100 ML IVPB IV ONE (12:08)
[2019-07-13 12:15] LABS: BANDS 6 % (0-1); LYMPHS 13 % (21-51); MONO 18 % (1-9); SEGS 60 % (42-75)
[2019-07-13] MEDS: KEPPRA LIQUID PO SCH ×2 (13:15→20:34)
[2019-07-13] MEDS ORDERED: NS NEB INH SCH (13:15)
--- NOTE | 2019-07-13 13:47 | HISTORY AND PHYSICAL ---
HISTORY OF PRESENT ILLNESS: Mr. Huitron is a 34-year-old who was in the hospital, presented on 06/25/2019. We discharged him on 07/10/2019. This is a 34-year-old followed by Dr. Elise Barboza, presented with shortness of breath last time, lower abdominal pain, nausea, and vomiting with bilious emesis and no bowel movement for 8 or 10 days. He is known to have stage IV gastric cancer. He presented with shortness of breath and lower abdominal pain, nausea, vomiting, bilious emesis. His last chemotherapy was a week before presentation. Workup showed white cell count of 3110, hemoglobin was 4.8 at that time, hematocrit 15, platelet count was 16,000. CT of the abdomen and pelvis showed large left pleural fluid collection, pulmonary edema versus right middle lobe pneumonia, massive ascites, which we suspected was malignant, and partial small bowel obstruction versus ileus. PAST MEDICAL HISTORY: 1. History of large left pleural effusion. 2. Partial small bowel obstruction versus ileus. 3. Pancytopenia with anemia. 4. Malignant ascites. 5. Hypomagnesemia. 6. Right middle lobe pneumonia. 7. Small petechial hemorrhage from the right frontal lobe on presentation last time. 8. Stage IV gastric cancer. He had a PleurX catheter placed on the left for hemothorax and he had paracentesis on 06/26/2019, which was successful. It was ultrasound-guided and he had 8.9 L aspirated. Suspect his pleural fluid and peritoneal fluid was gastric cancer in origin, although I am not real sure about his primary. He is undergoing chemotherapy. He was taking Taxol and carboplatin. He was on some antibiotics. He had a partial small bowel obstruction versus ileus and was having trouble with swallowing. He had a gastric tube placed. He presents today. It is reported that he had a seizure and he has hyponatremia. We cannot get much of a history from him. PHYSICAL EXAMINATION: VITAL SIGNS: His temperature was 98.2 degrees, pulse 127, respirations 14, blood pressure 97/56. HEENT: Pupils are equal and round. Conjunctivae are pink. His sclerae are clear. Oral and nasal mucosa unremarkable. GENERAL: He is awake. He is alert. He is oriented to being in the hospital. He did remember the month or the year I do not believe and thought it was Sunday. I put him in on a Sunday. CVP less than 6 cm. NECK: No distended neck veins. Neck was supple. No lymphadenopathy appreciated. LUNGS: Clear to auscultation anterior, lateral, and posterior. CARDIOVASCULAR EXAMINATION: Regular rhythm and rate without murmur or S3. Carotid, radial, and femoral pulses 2+ and symmetrical. ABDOMEN: Soft, nondistended. EXTREMITIES: Without edema. INTEGUMENTARY: I do not appreciate any rashes. LABORATORY DATA: White count 18,920, hematocrit is 32, hemoglobin is 10, platelet count is 230,000. Sodium is 126, potassium 3.5, chloride is 75, BUN 15, creatinine 1.3. AST is 36, ALT is 50. CK is 19. Albumin is 2.9. Prothrombin time is 13.1, INR 0.98, PTT is 30. Chest CT, loculated left pleural effusion, basilar atelectasis. Head CT, stable CT of the head. Current exam compared with exam on 06/26/2019, there are some cortical calcifications present in the frontal lobes bilaterally which also apparently were apparent previously. No evidence of mass effect, bleeding, or abnormal extra-axial fluid collection. Paranasal sinuses are clear and the calvarium is intact. ASSESSMENT AND PLAN: 1. Report of seizure, unwitnessed. It is in the face of hyponatremia. We do not have any evidence of metastatic disease to his head. I guess we could pursue an MRI at some point. I am going to put him on Keppra. We will put him on 500 mg by mouth twice a day. 2. Hypernatremia. It appears that he is, on exam, hypovolemic and hyponatremia. I am going to put him on normal saline and we will run it at 85 mL an hour. 3. Left pleural fluid. He did have a PleurX catheter. I am not sure what happened to that. 4. He has a feeding tube. I am not sure about his status for swallowing. We will let him have some full liquids at this time and see how he does, see if he is able to swallow okay. 5. Stage IV stomach cancer, followed by Dr. Elise Barboza. We will consult Dr. Elise Barboza to help with decisions. My understanding is that he went home with hospice care last time but I believe he is still a Full Code at this time. 6. He has an elevated white count. I do not see any obvious source of infection. He has got a pleural effusion on the left and some atelectasis. He is allergic to doxycycline but I think we will go ahead and put him on, I guess we will put him on cefepime 1 g every 12 hours. We will give him some DuoNebs every 4 hours while awake, although he did not have much in the way of bronchospasm. We will have him use incentive spirometry. We will recheck his electrolytes and magnesium in the morning, T4, and TSH. Note that his lactate level is high but he has a report of seizure. He does not appear to have sepsis clinically. cc: Last Hendricks MD
[2019-07-13] MEDS: XOPENEX NEB INH SCH ×2 (15:59→22:24)
[2019-07-13] MEDS: ATROVENT NEB INH SCH ×2 (15:59→22:24)
[2019-07-13] MEDS: MAXIPIME 1 GM in NS 50 ML IV SCH (16:15)
[2019-07-13] MEDS: NS 1,000 ML IV SCH (16:15)
--- NOTE | 2019-07-13 18:34 | EKG Report ---
Test Performed on : 07/13/2019 10:41:30 AM Test Reason : Tachycardia Blood Pressure : / mmHG Vent. Rate : 147 BPM Atrial Rate : 147 BPM P-R Int : 130 ms QRS Dur : 072 ms QT Int : 342 ms P-R-T Axes : 057 001 119 degrees QTc Int : 535 ms Sinus tachycardia. Cannot rule out Anterior infarct , age undetermined T wave abnormality, consider lateral ischemia Abnormal ECG No previous ECGs available Unconfirmed Result
[2019-07-13] MEDS: TYLENOL PO PRN (20:35)
[2019-07-14] MEDS: PHENERGAN IV PRN ×3 (02:14→21:45)
[2019-07-14] MEDS: MAXIPIME 1 GM in NS 50 ML IV SCH ×2 (02:14→12:25)
[2019-07-14] MEDS: TYLENOL PO PRN (03:02)
[2019-07-14 06:13] LABS: BASO# 0.03 X1000 (0.0-0.2); BASO% 0.2 % (0.0-0.8); HEMATOCRIT 26.1 % (42.0-52.0); HEMOGLOBIN 8.4 g/dL (14.0-18.0); LYMPH# 1.08 X1000 (1.2-3.4); LYMPH% 8.2 % (20.5-51.1); MCH 31.7 PG (27-31); MCHC 32.2 g/dL (33-37); MCV 98.5 FL (81-99); MONO% 15.2 % (1.7-9.3); MPV 9.6 FL (7.4-10.4); PLT 191 X1000 (130-400); RBC 2.65 XMIL (4.7-6.1); RDW 18.3 % (11.5-14.5); WBC 13.14 X1000 (4.8-10.8)
[2019-07-14 06:33] LABS: ESTIMATED GFR > 60
[2019-07-14] MEDS: MS CONTIN PO SCH ×2 (06:34→15:48)
[2019-07-14 06:39] LABS: AGAP 10; ALB/GLOB RATIO 0.7; ALBUMIN 2.2 g/dL (3.5-5.0); ALKALINE PHOSPHATASE 124 U/L (32-122); BUN 15 mg/dL (8-22); CALCIUM 7.5 mg/dL (8.8-10.2); CHLORIDE 86 mmol/L (98-107); COSMO 263; CREATININE 0.9 mg/dL (0.7-1.2); FREE T4 1.08 ng/dL (0.93-1.70); GLUCOSE 89 mg/dL (70-104); GOT 24 U/L (10-34); GPT 33 U/L (10-44); MAGNESIUM 1.2 mg/dL (1.5-2.7); POTASSIUM 3.1 mmol/L (3.5-5.1); SODIUM 131 mmol/L (136-145); TCO2 35 mmol/L (25-35); TOTAL BILIRUBIN 0.47 mg/dL (0.20-1.00); TOTAL PROTEIN 5.5 g/dL (6.3-8.3); TSH 1.76 uIUmL (0.27-4.20)
[2019-07-14] MEDS: XOPENEX NEB INH SCH ×3 (08:04→22:22)
[2019-07-14] MEDS: ATROVENT NEB INH SCH ×3 (08:04→22:22)
[2019-07-14] MEDS: KEPPRA LIQUID PO SCH ×2 (08:40→21:26)
[2019-07-14] MEDS: NS 1,000 ML IV SCH ×2 (09:49→13:46)
[2019-07-14] MEDS ORDERED: HALDOL PO PRN (10:01)
[2019-07-14] MEDS ORDERED: ATIVAN PO PRN (10:01)
[2019-07-14] MEDS ORDERED: PHENERGAN PO PRN (10:01)
--- NOTE | 2019-07-14 11:13 | Diag Imaging Result Doc PS360 ---
MRI BRAIN W/WO CONTRAST - 07/14/2019 INDICATION: seizure COMPARISON: Head CT 07/13/2019 FINDINGS: There is no area of restricted diffusion. The ventricles and sulci are normal in size and contour. No intracranial mass or hemorrhage. No area of abnormal contrast enhancement. Midline structures including the optic chiasm and pituitary are normal. IMPRESSION: Negative exam. Electronically signed by Coy Nguyen 07/14/2019 11:11 AM
--- NOTE | 2019-07-14 11:16 | Diag Imaging Result Doc PS360 ---
MRA BRAIN W/O CONTRAST - 07/14/2019 INDICATION: seizure TECHNIQUE: Noncontrast [id number] technique was used COMPARISON: None FINDINGS: There is mild patient motion artifact. All the intracranial arteries are normal in size and contour. No aneurysm or stenosis. Anatomy is conventional. IMPRESSION: Negative exam. Electronically signed by Coy Nguyen 07/14/2019 11:14 AM
[2019-07-14] MEDS ORDERED: MILK OF MAGNESIA PO ONE (12:01)
--- NOTE | 2019-07-14 12:21 | PROGRESS NOTE ---
DATE: 07/14/2019 SUBJECTIVE: Mr. Huitron was requesting food and so I will put him on a regular diet. He still has his PleurX tube in. That is what is in the left upper quadrant and so they are just draining that periodically. He has not had any trouble swallowing. He did say that he has not had a bowel movement in a while so we will give him something to help with his bowels. He appears comfortable this morning. He still has a little nausea. Temperature 97.8 degrees, pulse 101, respirations 16, blood pressure 102/78 and then 86/51. Pupils are equal and round. Lungs are clear in all lung [place]. Cardiovascular Examination: Regular rhythm and rate without murmur or S3. MRI of the brain was a negative exam. MRA of the brain was also a negative exam. Report was that he had a new onset seizure and that is what brought him into the hospital. He was on hospice so they are discussing the plan. I put him on Keppra. PHYSICAL EXAMINATION: Temperature 97.8 degrees, pulse 100, respirations 16, blood pressure 86/51. Pupils are equal and round. Lungs are clear in all lung [place]. Cardiovascular Examination: Regular rhythm and rate without murmur or S3. Abdomen: Soft, nondistended. Skin is warm and dry. Urine output is 2000 mL. ASSESSMENT AND PLAN: 1. New onset seizure. He did present with some hyponatremia. I put him on Keppra. He has not had any other further seizure event. 2. Hyponatremia, which was 126. It has come up nicely to 131. We have given him some fluids. 3. Appeared to have mild volume depletion so seems to be responding to fluid. 4. History of left pleural effusion. He still has a PleurX catheter in. 5. Blood counts actually look pretty good. His white count was high when he came in. I suspect that may have been secondary to seizure and stress demargination. It is 13,140 this morning, hematocrit 26, hemoglobin 8.4, platelet count 191,000. I think it has dropped because of his volume he is receiving. His chest x-ray was a loculated left pleural effusion, basilar atelectasis, which was really no change from previous x-ray, so we will put him on a regular diet and give him something for his bowels. He will discuss with Dr. Barboza about plans for discharge. cc: Last Hendricks MD
[2019-07-14] MEDS: PRILOSEC PO SCH (12:25)
[2019-07-14] MEDS: COLACE PO SCH (12:25)
[2019-07-14] MEDS: NORCO-10 PO PRN ×2 (12:30→21:15)
--- NOTE | 2019-07-14 12:31 | HEMO/ONC CONSULTATION ---
DATE: 07/14/2019 REQUESTING PHYSICIAN: Consultation requested by hospitalist service. REASON FOR CONSULTATION: Patient known. HISTORY OF PRESENT ILLNESS: Mr. 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 His last dose of carboplatin and Taxol was on 06/18/2019. That was his 9th dose of treatment. After that time, he had significant cytopenias as well as shortness of breath, and abdominal pain, and nausea and vomiting. He was admitted to [facility] for evaluation and treatment. During that hospitalization, he received a PleurX catheter. He did not really show much improvement in regards to his nausea and vomiting. He also had a paracentesis during that time. It was eventually decided that he would be discharged home on hospice. He was discharged on 07/10/2019. He had a seizure at home over the weekend and was brought back to the hospital. He has now been admitted for further evaluation and treatment. The patient currently is complaining of pain. Otherwise, he has no acute complaints. PAST MEDICAL HISTORY: 1. Pancreatitis. 2. History of IV drug use. 3. GERD. 4. Kidney stones. 5. Obesity. 6. Carcinoma of unknown primary, metastatic, suspected to be of gastrointestinal origin. Last chemotherapy was on 06/18/2019 with no further chemotherapy planned at this time. PAST SURGICAL HISTORY: Cholecystectomy and gynecomastia. FAMILY HISTORY: Positive for diabetes, alcoholism, colon cancer, and cardiovascular disease. SOCIAL HISTORY: Patient is and currently lives with his . He has a young child. He was recently a current every day smoker. He has a history of IV drug use but quit using any IV drugs about 5 years ago. He denies any illicit drug use currently. He denies any alcohol use. REVIEW OF SYSTEMS: Twelve point review of systems negative except for as expressed in the HPI. PHYSICAL EXAMINATION: Vital Signs: Temperature 97.8 degrees, heart rate 105, respirations 18, blood pressure 86/51, O2 saturation 96% on 2 L nasal cannula. General: This is a male who is in the room by himself. He is in no acute distress. Head: Normocephalic and atraumatic. Eyes: Pupils equal, round, and reactive. Ears, Nose, Throat, Neck, and Mouth: Mucosa appears to be normal. Gross auditory acuity is intact. Cardiovascular: Tachycardia noted. Regular rhythm. Respiratory: Some mild coarse breath sounds but no rhonchi, rales, or wheezing noted. Gastrointestinal: Abdomen is nondistended at this time. Normoactive bowel sounds. Musculoskeletal: Muscle wasting noted. Neurologic: The patient is alert and oriented with no focal motor deficits noted at this time. LABS AND STUDIES: White blood cells are 13.14, hemoglobin 8.4, platelet count 191,000. Sodium 131, potassium 3.1, chloride 86, CO2 is 35, BUN is 15, creatinine 0.9, glucose is 89. Brain MRI is negative. Brain MRA is negative. Chest x-ray only shows the left pleural effusion. ASSESSMENT AND PLAN: 1. Metastatic carcinoma of unknown primary, thought to be of gastric origin, status post chemotherapy last on 06/18/2019. The patient was discharged home on hospice. He is not currently a candidate for chemotherapy. We will continue to follow along. 2. New onset seizures. Continue current workup. The patient has been started on Keppra. No seizure activity since admission. 3. Hyponatremia. Continue current management. Improved since starting normal saline. 4. Leukocytosis. Patient is on antibiotic coverage. Improved today. 5. Pain. We did go ahead and reinitiate some of his other medications including [place] for breakthrough pain and Roxanol as needed. We will continue to adjust his pain medications as needed. 6. Nausea and vomiting. Not really improved. Continue current management. He received quite a bit of different things last time was here with not much relief. He does have Phenergan as well as Ativan ordered. We want to thank you for consulting us on Mr. Huitron and we will continue to follow along during this hospitalization. Dictated by MICHAEL Castrejon for Elise Barboza MD cc: Elise Barboza MD I have seen and examined Mr. Huitron and the above note reflects my history, physical exam, assessment and plan. Elise BALES
[2019-07-14 12:38] LABS: URINE SOURCE CLEAN CATCH
[2019-07-14 12:48] LABS: BILIRUBIN URINE NEGATIVE (NEGATIVE); BLOOD URINE NEGATIVE (NEGATIVE); COLOR YELLOW; GLUCOSE URINE NEGATIVE (NEGATIVE); KETONE URINE NEGATIVE (NEGATIVE); LEUKOCYTES URINE NEGATIVE (NEGATIVE); NITRITE URINE NEGATIVE (NEGATIVE); PROTEIN URINE TRACE mg/dL (NEGATIVE); SP GRAVITY URINE 1.016; TURBIDITY URINE CLEAR (CLEAR); UROBILINOGEN URINE NORMAL (NORMAL)
[2019-07-14 12:50] LABS: UR EPITHELIAL CELLS <10 /HPF (<10); URINE BACTERIA NEGATIVE /HPF; URINE RBC <10 /HPF (<10); URINE WBC <10 /HPF (<10)
[2019-07-14 13:00] LABS: UR AMPHETAMINES QUAL NONE DETECTED (NONE DETECT); UR BARBITUATES QUAL NONE DETECTED (NONE DETECT); UR BENZODIAZEPIN QUAL NONE DETECTED (NONE DETECT); UR CANNABINOIDS QUAL PRESUMPTIVE POSITIVE (NONE DETECT); UR COCAINE QUAL NONE DETECTED (NONE DETECT); UR METHADONE QUAL NONE DETECTED (NONE DETECT); UR OPIATES QUAL PRESUMPTIVE POSITIVE (NONE DETECT); UR OXYCODONE QUAL PRESUMPTIVE POSITIVE (NONE DETECT); UR PCP QUAL NONE DETECTED (NONE DETECT)
[2019-07-14] MEDS ORDERED: DESYREL PO SCH (21:00)
[2019-07-14] MEDS: SODIUM CHLORIDE 0.9% INJ PRN (21:45)
[2019-07-14] MEDS: ROXANOL CONC. LIQUID PO PRN (22:52)
[2019-07-15] MEDS: MAXIPIME 1 GM in NS 50 ML IV SCH (01:51)
[2019-07-15] MEDS: MS CONTIN PO SCH ×3 (01:52→13:35)
[2019-07-15] MEDS: NS 1,000 ML IV SCH (01:53)
[2019-07-15] MEDS: ROXANOL CONC. LIQUID PO PRN (03:12)
[2019-07-15 05:35] LABS: BASO# 0.02 X1000 (0.0-0.2); BASO% 0.2 % (0.0-0.8); EOS# 0.03 X1000 (0.0-0.7); EOS% 0.3 % (0.0-10.0); HEMATOCRIT 26.2 % (42.0-52.0); HEMOGLOBIN 8.2 g/dL (14.0-18.0); IMM GRAN# 0.05 X1000 (0.0-0.04); IMM GRAN% 0.5 % (0.0-0.5); LYMPH# 1.16 X1000 (1.2-3.4); LYMPH% 10.9 % (20.5-51.1); MCH 30.9 PG (27-31); MCHC 31.3 g/dL (33-37); MCV 98.9 FL (81-99); MONO# 1.79 X1000 (0.11-0.59); MONO% 16.9 % (1.7-9.3); MPV 9.6 FL (7.4-10.4); NEUT# 7.55 X1000 (1.4-6.5); NEUT% 71.2 % (42.2-75.2); PLT 226 X1000 (130-400); RBC 2.65 XMIL (4.7-6.1); RDW 18.9 % (11.5-14.5)
[2019-07-15 05:57] LABS: ESTIMATED GFR > 60
[2019-07-15] MEDS: PHENERGAN IV PRN ×3 (06:13→12:30)
[2019-07-15] MEDS: SODIUM CHLORIDE 0.9% INJ PRN (06:13)
[2019-07-15 06:15] LABS: AGAP 9; ALB/GLOB RATIO 0.5; ALBUMIN 1.9 g/dL (3.5-5.0); ALKALINE PHOSPHATASE 111 U/L (32-122); BUN 12 mg/dL (8-22); CALCIUM 7.2 mg/dL (8.8-10.2); CHLORIDE 88 mmol/L (98-107); COSMO 264; CREATININE 0.8 mg/dL (0.7-1.2); GLUCOSE 89 mg/dL (70-104); GOT 17 U/L (10-34); GPT 25 U/L (10-44); MAGNESIUM 1.2 mg/dL (1.5-2.7); POTASSIUM 2.9 mmol/L (3.5-5.1); SODIUM 132 mmol/L (136-145); TCO2 35 mmol/L (25-35); TOTAL PROTEIN 5.5 g/dL (6.3-8.3)
[2019-07-15] MEDS ORDERED: KLOR-CON PO ONE (07:57)
[2019-07-15] MEDS ORDERED: MAGNESIUM SULFATE 4 GM/S.W.I. 4 GM/100 ML IVPB IV ONE (07:57)
[2019-07-15] MEDS ORDERED: POTASSIUM CHLORIDE 60 MEQ in NS 500 ML IV ONE (07:59)
--- NOTE | 2019-07-15 08:20 | Diag Imaging Result Doc PS360 ---
EXAM: ABDOMEN FLAT/UPRIGHT HISTORY: constipation TECHNIQUE: Two views COMPARISON: 07/10/2019 FINDINGS: The small bowel loops appear less distended. There is stool in the proximal and mid colon. Air is present in the rectum. No organomegaly. The gallbladder has been removed. No abnormal abdominal calcifications. IMPRESSION: Mild interval improvement Electronically signed by Tone Preciado 07/15/2019 8:17 AM
[2019-07-15] MEDS: KEPPRA LIQUID PO SCH (08:32)
[2019-07-15] MEDS: PRILOSEC PO SCH (08:33)
[2019-07-15] MEDS: COLACE PO SCH (08:33)
[2019-07-15] MEDS ORDERED: DULCOLAX PR ONE (09:04)
[2019-07-15 11:17] VITALS: BP 95/55
[2019-07-15] MEDS: XOPENEX NEB INH SCH (11:25)
--- NOTE | 2019-07-21 21:22 | DISCHARGE SUMMARY ---
ADMISSION DATE: 07/13/2019 DISCHARGE DATE: 07/15/2019 FINAL DISCHARGE DIAGNOSES: 1. Seizures. 2. Carcinoma of unknown primary with metastasis suspected to be of gastrointestinal origin. 3. History of intravenous drug use. 4. Gastroesophageal reflux disease. 5. Nephrolithiasis. CONSULTATIONS: Oncology consultation with Dr. Barboza. HOSPITAL COURSE: Mr. Huitron is a 34-year-old male with a history of metastatic carcinoma of unknown primary suspected to be of GI origin who presented to the ER with a chief complaint of abdominal pain as well as nausea and vomiting as well as a possible seizure. The patient was admitted to the hospitalist service and started on IV fluids and Keppra. The patient had his electrolytes replaced and was started on empiric antibiotic therapy. He was also seen by the oncologist who stated that there was no further treatment available for the patient and hospice services was recommended. The patient was in agreement and so was his family so palliative care was consulted and hospice services were consulted as well. Arrangements were made for [facility] to provide hospice services for the patient upon discharge. The patient was cleared for discharge home with hospice on 07/15/2019. cc: Pam Pulido MD
== END 2019-07-15 13:39 | disposition hospice, home (50) | DRG 100 ==
LOC: ED 10:13 → 2N 13:13 → SUATTDRO 13:13
PROVIDERS: ATTEND Internal Medicine